=== PATIENT | female | born 1940 | race Caucasian/White ===

== ENCOUNTER 2017-08-23 18:17 | Inpatient (IN) | payer OTHER, BC ==
--- NOTE | 2017-08-23 18:24 | PDOC ---
History of Present Illness - General History Source: Patient Exam Limitations: No Limitations - History of Present Illness Initial Comments: 08/23/17 18:46 The patient is a 77 year old female with significant PMH presents of HLD on Crestor to the emergency department with generalized body aches and fatigue after having dinner with a friend who had a cough three days ago. The patient reports his friend is now hospitalized with influenza and told the patient to take Tamiflu but was unable to obtain Tamiflu at the pharmacy. The patient denies chest pain, shortness of breath, headache and dizziness. Denies fever, chills, nausea, vomit, diarrhea and constipation. Denies dysuria, frequency, urgency and hematuria. The patient has no other complaints today. Allergies: NKA Past surgical history: Brain tumor resection 10 years ago. Social history: No reported alcohol, drug, or cigarette use. PCP: Dr. Forrester <Snehal Nixon - Last Filed: 08/23/17 18:50> <Liseth Burris - Last Filed: 08/24/17 23:44> - General Chief Complaint: Cold Symptoms Stated Complaint: COUGH Time Seen by Provider: 08/23/17 18:20 Past History <Snehal Nixon - Last Filed: 08/23/17 18:50> <Liseth Burris - Last Filed: 08/24/17 23:44> - Past Medical History Allergies/Adverse Reactions: Allergies Allergy/AdvReac Type Severity Reaction Status Date / Time No Known Allergies Allergy Verified 08/23/17 18:18 Home Medications: Ambulatory Orders Aspirin [Adult Aspirin Regimen] 81 mg PO DAILY 08/24/17 Cholecalciferol (Vitamin D3) [Vitamin D-400] 400 unit PO DAILY 08/24/17 Diazepam [Valium] 2 mg PO TID 08/24/17 Lutein 6 mg PO DAILY 08/24/17 Magnesium 250 mg PO DAILY 08/24/17 Rosuvastatin Calcium [Crestor] 5 mg PO HS 08/24/17 Review of Systems - Review of Systems Able to Perform ROS?: Yes Comments:: 08/23/17 18:46 GENERAL/CONSTITUTIONAL: (+) Fatigue. (+) Generalized body aches. No fever or chills. HEAD, EYES, EARS, NOSE AND THROAT: No change in vision. No ear pain or discharge. No sore throat. CARDIOVASCULAR: No chest pain or shortness of breath. RESPIRATORY: No cough, wheezing, or hemoptysis. GASTROINTESTINAL: No nausea, vomiting, diarrhea or constipation. GENITOURINARY: No dysuria, frequency, or change in urination. MUSCULOSKELETAL: No joint or muscle swelling or pain. No neck or back pain. SKIN: No rash NEUROLOGIC: No headache, vertigo, loss of consciousness, or change in strength/ sensation. ENDOCRINE: No increased thirst. No abnormal weight change. HEMATOLOGIC/LYMPHATIC: No anemia, easy bleeding, or history of blood clots. ALLERGIC/IMMUNOLOGIC: No hives or skin allergy. <Snehal Nixon - Last Filed: 08/23/17 18:50> *Physical Exam - Vital Signs Last Vital Signs Temp Pulse Resp BP Pulse Ox 98.3 F 70 18 103/52 96 08/23/17 18:18 18 18:18 08/23/17 18:18 08/23/17 18:18 08/23/17 18:18 - Physical Exam Comments: 08/23/17 18:49 GENERAL: (+) Fatigued. (+) Arousable to voice and responsive to questions. Awake , alert, and fully oriented. HEAD: No signs of trauma EYES: PERRLA, EOMI, sclera anicteric, conjunctiva clear ENT: Auricles normal inspection, hearing grossly normal, nares patent, oropharynx clear without exudates. Moist mucosa NECK: Normal ROM, supple, no lymphadenopathy, JVD, or masses LUNGS: Breath sounds equal, clear to auscultation bilaterally. No wheezes, and no crackles HEART: Regular rate and rhythm, normal S1 and S2, no murmurs, rubs or gallops ABDOMEN: Soft, nontender, normoactive bowel sounds. No guarding, no rebound. No masses EXTREMITIES: Normal range of motion, no edema. No clubbing or cyanosis. No cords, erythema, or tenderness NEUROLOGICAL: Cranial nerves II through XII grossly intact. Normal speech, normal gait SKIN: Warm, Dry, normal turgor, no rashes or lesions noted. <Snehal Nixon - Last Filed: 08/23/17 18:50> ED Treatment Course - LABORATORY CBC & Chemistry Diagram: 08/24/17 07:20 08/24/17 07:20 <Liseth Burris - Last Filed: 08/24/17 23:44> Medical Decision Making - Medical Decision Making 08/23/17 18:34 MS Nunez is a 77 yo F with a history of HLD, prior history of Trans sphenoidal resection of brain tumor (per , benign) Pt presents to the ER today with due to generalized weakness Pt returned from [facility] on 08/12 PT had dinner with a friend on Tuesday That friend was admitted to the hospital today due to influenza The patient was noted by to be weak and sleepy The patient denies fevers or chills She denies headache, neck pain She denies chest pain, shortness of breath She denies nausea, vomiting, diarrhea She denies rash She denies dysuria On examination: PT is arousable to verbal stimuli but pt is somnolent Pt answers questions appropriately, A&O x 3 Pupils round and reactive RRR CTA No abd tenderness Flesh colored 1cm in diameter lesion behind right shoulder (non tender, unclear if this is old or new) Will do: Sepsis order set Unable to run flu testing Will IV hydrate Admit Pt signed out to oncoming attending physician pending labs, ct, ua 08/24/17 23:43 <Liseth Burris - Last Filed: 08/24/17 23:44> *DC/Admit/Observation/Transfer - Attestations Scribe Attestion: 08/23/17 18:50 Documentation prepared by Snehal Nixon, acting as caregivers non medical for Liseth Burris MD. <Snehal Nixon - Last Filed: 08/23/17 18:50> <Liseth Burris - Last Filed: 08/24/17 23:44> Diagnosis at time of Disposition: Altered mental status, Fever - Discharge Dispostion Condition at time of disposition: Guarded
[2017-08-23] MEDS ORDERED: SODIUM CHLORIDE 0.9% 1000 ML INFUS.BAG IV STA (18:33)
--- NOTE | 2017-08-23 19:19 | PDOC ---
*Physical Exam - Vital Signs Last Vital Signs Temp Pulse Resp BP Pulse Ox 98.3 F 70 18 103/52 96 08/23/17 18:18 08/23/17 18:18 08/23/17 18:18 08/23/17 18:18 08/23/17 18:18 - Physical Exam Comments: 08/23/17 19:17 Pt received on signout from Dr. Burris at 7pm. In short, pt presented somnolent and weak with otherwise negative ROS. Possible flu exposure. On exam, she's responsive to verbal stimuli and follows commands though slowly. Labs, UA, CTH pending Anticipate admission ED Treatment Course - LABORATORY CBC & Chemistry Diagram: 08/23/17 18:56 08/23/17 18:56 Medical Decision Making - Medical Decision Making 08/23/17 21:26 Pt still somnolent but arousable, no further change in mental status. Will admit to medicine for AMS as pt still not at baseline. CTH unrevealing, labs with hyponatremia. Received 1L IVF. No fever. 08/23/17 21:54 Temp repeated - pt is febrile 101.7. No source of fever - per , did NOT have preceding myalgias, headache, cough, flu-like symptoms, reports that she was just "more sleepy than usual and very weak". Is currently altered, thinks it 's March. Cannot rule out encephalitis/meningitis in this pt with fever and AMS. Will treat empirically for [employer] infection (vancomycin 1g, rocephin 2g, ampicillin, acyclovir) and proceed with LP. Will order another liter of IVF. 08/24/17 00:35 Spoke to Shagufta Light NP in ICU at [facility]. Pt hypotensive 90s/60s - still receiving IV fluids. Pt accepted to [facility] ICU, bed 8. Has received abx, will receive acyclovir now. LP was performed without complications, CSF was sent to [facility] lab via security. LUMBAR PUNCTURE PROCEDURE NOTE The patient was prepared and draped in the usual sterile fashion while in the lateral decubitus position. The skin was anesthesized with 1% lidocaine that was injected into the subcutaneous tissue. Spinal needle was advanced into the L4/L5 interspace. There was return of clear fluid. Pt tolerated procedure well. *DC/Admit/Observation/Transfer Diagnosis at time of Disposition: Altered mental status, Fever - Discharge Dispostion Condition at time of disposition: Guarded Admit: Yes - Referrals - Patient Instructions - Post Discharge Activity
[2017-08-23 19:24] LABS: BASO % 1.1 % (0-2.0); EOS % 0.5 % (0-4.5); HEMATOCRIT 40.3 % (32.4-45.2); HEMOGLOBIN 13.4 GM/dl (10.7-15.3); LYMPH % 28.5 % (8-40); MCH 29.3 pg (25.7-33.7); MCHC 33.4 g/dl (32.0-36.0); MEAN CELL VOLUME 87.8 fl (80-96); MEAN PLT VOLUME 11.7 fl (7.5-11.1); MONO % 15.5 % (3.8-10.2); NEUT % 54.4 % (42.8-82.8); PLATELET COUNT 176 K/MM3 (134-434); RBC 4.59 M/mm3 (3.60-5.2); RDW 12.5 % (11.6-15.6); WHITE BLOOD COUNT 4.6 K/mm3 (4.0-10.8)
[2017-08-23 19:25] LABS: ACTIVATED PTT 30.1 SECONDS (24.0-38.9)
[2017-08-23 19:28] LABS: ALBUMIN 3.7 g/dl (3.5-5.0); ALK PHOS 52 U/L (32-92); ANION GAP 6 (8-16); BLOOD UREA NITROGEN 12 mg/dl (7-18); CALCIUM 8.4 mg/dl (8.4-10.2); CHLORIDE 95 mmol/L (98-107); CO2 25 mmol/L (22-28); CREATININE 1.1 mg/dl (0.6-1.3); GLUCOSE,RANDOM 93 mg/dl (74-106); POTASSIUM 3.9 mmol/L (3.5-5.1); SGOT/AST 30 U/L (10-42); SGPT/ALT 17 U/L (10-40); SODIUM 126 mmol/L (136-145); TOT PROT 6.5 g/dl (6.4-8.3)
[2017-08-23 19:29] LABS: INR 1.3 (0.82-1.09); PROTHROMBIN TIME (PATIENT) 14.5 SEC (10.2-13.0)
[2017-08-23 19:38] LABS: BILIRUBIN,TOTAL 0.7 mg/dl (0.2-1.0)
[2017-08-23 19:58] LABS: URINE APPEARANCE Clear; URINE BILIRUBIN Negative (NEGATIVE); URINE GLUCOSE (UA) Negative (NEGATIVE); URINE KETONE Trace (NEGATIVE); URINE LEUK ESTERASE Negative (NEGATIVE); URINE NITRITE Negative (NEGATIVE); URINE PROTEIN Negative (NEGATIVE); URINE UROBILINOGEN 0.2 (0.2-1.0)
[2017-08-23 19:59] LABS: URINE BLOOD 2+ (NEGATIVE); URINE COLOR YELLOW
[2017-08-23 20:39] LABS: VENOUS PC02 45.2 mmHg (38-52); VENOUS PH 7.37 (7.32-7.42); VENOUS PO2 20.7 mmHg (28-48)
[2017-08-23 20:57] LABS: COCAINE, UR NEGATIVE ng/ml (CUTOFF=300); METHADONE, UR NEGATIVE ng/ml (CUTOFF=300); OPIATES, URI NEGATIVE ng/ml (CUTOFF=300); PHENCYCLIDINE,URINE NEGATIVE ng/ml (CUTOFF=25); URINE AMPHETAMINES NEGATIVE ng/ml (CUTOFF=500); URINE BARBITURATES NEGATIVE ng/ml (CUTOFF=200); URINE BENZODIAZEPINES NEGATIVE ng/ml (CUTOFF=200)
[2017-08-23] MEDS ORDERED: ACETAMINOPHEN 500 MG TABLET (FP) ONE (21:32)
[2017-08-23] MEDS ORDERED: ACETAMINOPHEN 500 MG TABLET (FP) PO ONE (21:35)
[2017-08-23] MEDS ORDERED: VANCOMYCIN 1,000 MG VIAL (RESTRICTED TO ID ONLY) ONE (21:39)
[2017-08-23] MEDS ORDERED: CEFTRIAXONE 2 GM in DEXTROSE 5%-WATER - 100 ML IVPB ONE (21:40)
[2017-08-23] MEDS ORDERED: AMPICILLIN - 2 GM in SODIUM CHLORIDE 100 ML IVPB ONE (21:41)
[2017-08-23] MEDS ORDERED: SODIUM CHLORIDE 1,000 ML IV STA (21:42)
[2017-08-23] MEDS ORDERED: OSELTAMIVIR PHOSPHATE 75 MG CAPSULE PO ONE (21:42)
[2017-08-23] MEDS ORDERED: ACYCLOVIR INJECTION 500 MG in DEXTROSE 5%-WATER - 100 ML IVPB ONE (21:43)
[2017-08-23] MEDS ORDERED: OSELTAMIVIR PHOSPHATE 75 MG CAPSULE ONE (21:54)
[2017-08-23] MEDS ORDERED: VANCOMYCIN 1,000 MG in DEXTROSE 5%-WATER - 250 ML IVPB SCH (22:00)
[2017-08-23] MEDS ORDERED: ONDANSETRON 4 MG/2 ML VIAL IVPUSH ONE (22:41)
[2017-08-23] MEDS ORDERED: FAMOTIDINE IV 20 MG/12 ML VIAL IVPB ONE (22:42)
[2017-08-23 22:52] LABS: URINE BACTERIA FEW /hpf (NEGATIVE); URINE WBC 0-2 (0-5)
[2017-08-23] MEDS ORDERED: ONDANSETRON 4 MG/2 ML VIAL ONE (23:28)
[2017-08-23] MEDS ORDERED: AMPICILLIN SODIUM 2 GM VIAL ONE (23:38)
[2017-08-24 01:11] LABS: GLUCOSE,CSF 45 mg/dL (50-80)
[2017-08-24 01:41] LABS: CSF APPEARANCE CLEAR; CSF COLOR COLORLESS
[2017-08-24 01:47] LABS: CSF APPEARANCE CLEAR; CSF COLOR COLORLESS; CSF WBC 0
[2017-08-24] MEDS ORDERED: SODIUM CHLORIDE 1,000 ML IV STA (02:28)
--- NOTE | 2017-08-24 03:14 | PN ---
Teaching Attending Note Name of Resident: Kel Bautista ATTENDING PHYSICIAN STATEMENT I saw and evaluated the patient. I reviewed the resident's note and discussed the case with the resident. I agree with the resident's findings and plan as documented. 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 who presents with fatigue and myalgias. She recently had dinner with a friend who has a cough. States this was 3 days, and friend was dx'd with the flu. Notes he coughed on her when she ate. She was told to take Jennifer-Flu, but was unable to obtain at pharmacy. No shortness of breath, headache, chest pain or pressure. No urinary urgency, dysuria or increased frequency. No fevers or chills. No N,V,D. OBJECTIVE: Physical: VS: Vital Signs Period Temp Pulse Resp BP Sys/Ulrich Pulse Ox Last 24 Hr 98.2 F-101.7 F 70-85 18-24 93-127/52-87 96-100 GEN: NAD, Resting in bed, AA0X3 HEENT: NCAT, PERRL, Throat without erythema or exudates CARD: RRR S1, S2 RESP: CTAB ABD: BSx4, NTD to palpation EXT: - C/C/E CBCD WBC 4.6 K/mm3 (4.0-10.8) 08/23/17 18:56 RBC 4.59 M/mm3 (3.60-5.2) 08/23/17 18:56 Hgb 13.4 GM/dl (10.7-15.3) 08/23/17 18:56 Hct 40.3 % (32.4-45.2) 08/23/17 18:56 MCV 87.8 fl (80-96) 08/23/17 18:56 MCHC 33.4 g/dl (32.0-36.0) 08/23/17 18:56 RDW 12.5 % (11.6-15.6) 08/23/17 18:56 Plt Count 176 K/MM3 (134-434) 08/23/17 18:56 MPV 11.7 fl (7.5-11.1) H 08/23/17 18:56 CMP Sodium 126 mmol/L (136-145) L 08/23/17 18:56 Potassium 3.9 mmol/L (3.5-5.1) 08/23/17 18:56 Chloride 95 mmol/L (98-107) L 08/23/17 18:56 Carbon Dioxide 25 mmol/L (22-28) 08/23/17 18:56 Anion Gap 6 (8-16) L 08/23/17 18:56 BUN 12 mg/dl (7-18) 08/23/17 18:56 Creatinine 1.1 mg/dl (0.6-1.3) 08/23/17 18:56 Creat Clearance w eGFR 48.42 (>60) 08/23/17 18:56 Random Glucose 93 mg/dl (74-106) 08/23/17 18:56 Calcium 8.4 mg/dl (8.4-10.2) 08/23/17 18:56 Total Bilirubin 0.7 mg/dl (0.2-1.0) 08/23/17 18:56 AST 30 U/L (10-42) 08/23/17 18:56 ALT 17 U/L (10-40) 08/23/17 18:56 Alkaline Phosphatase 52 U/L (32-92) 08/23/17 18:56 Total Protein 6.5 g/dl (6.4-8.3) 08/23/17 18:56 Albumin 3.7 g/dl (3.5-5.0) 08/23/17 18:56 CARDIAC ENZYMES Creatine Kinase 116 IU/L (26-192) 08/23/17 18:56 Troponin I 0.00 ng/ml (0.00-0.05) 08/23/17 18:56 CT HEAD0 Mild diffuse cerebral atropy with sulcal widening and ventricular dilitation CXR- No acute process Urine Test Results Urine Color Yellow 08/23/17 19:40 Urine Appearance Clear 08/23/17 19:40 Urine pH 7.0 (4.5-8) 08/23/17 19:40 Ur Specific Fritch 1.020 (1.005-1.025) 08/23/17 19:40 Urine Protein Negative (NEGATIVE) 08/23/17 19:40 Urine Glucose (UA) Negative (NEGATIVE) 08/23/17 19:40 Urine Ketones Trace (NEGATIVE) 08/23/17 19:40 Urine Blood 2+ (NEGATIVE) H 08/23/17 19:40 Urine Nitrite Negative (NEGATIVE) 08/23/17 19:40 Urine Bilirubin Negative (NEGATIVE) 08/23/17 19:40 Ur Leukocyte Esterase Negative (NEGATIVE) 08/23/17 19:40 Urine RBC 10-20 /hpf (0-3) 08/23/17 19:40 Urine WBC 0-2 (0-5) 08/23/17 19:40 Urine Bacteria Few /hpf (NEGATIVE) 08/23/17 19:40 ASSESSMENT AND PLAN: 77 F with Pmhx of HLD who presents with AMS, known flu exposure 1.) AMS - Resolved - Most likely due to infection - [place] Cx - Jennifer-Flu - CSF cx pending - Would hold off further abx 2.) Dvt Ppx - Heparin 5000 q8 Accepted to ICU CC Time:
--- NOTE | 2017-08-24 04:04 | CONSULT ---
Consult Consult Specialty:: Pulmonary/Critical Care Reason for Consultation:: hypotension - History of Present Illness Chief Complaint: AMS, fever History of Present Illness: Mrs. Nunez is a 77yo female with PMHx of HLD (on Crestor) who presented to the [facility] ED with generalized myalgias, fatigue, and weakness. Of note, about 4 days ago, patient had dinner with a friend that was diagnosed with the flu, and this friend is now hospitalized being treated for the flu. It was recommended that the patient start Tamiflu, but she was unable to obtain Tamiflu at the pharmacy. She also recently came back from [facility] ~10 days ago. Denies any symptoms while in [facility]. In the ED, patient denied CP, SOB, RANDOLPH, dizziness, fever/chills, n/v/d, constipation, or any urinary complaints. Initial vitals stable with SBP in 120s, but did then developed mild hypotension of 95/60 with normal HR 80s. Fluid resuscitated with 4L NS. Labs notable for Na 126, low TSH, normal electrolytes, normal BUN/SCr, UTox neg, normal lactate. While in the ED did develop fever and mild hypotension; sepsis was suspected. Due to AMS, CT Head done which was negative for acute process. LP done to r/o meningitis and was empirically covered with Vanc 1g, Rocephin 2g, Ampicillin 2g , and Acylovir. Due to mild hypotension and concern for potential further deterioration, decision made for transfer to [facility] ICU for further management. Upon arrival to ICU, vitals stable with BP 114/52, HR 72, O2sat 95% on RA, RR 16 , but did have temp 100.8. Hospitalist team admitted patient. Tylenol given for fever. Plan for munoz cultures, including urine antigens and repeat labs. Plan to cover empirically for flu. - History Source History Provided By: Patient, Transfer Record Limitations to Obtaining History: Other (fatigue) - Past Medical History Cardio/Vascular: Yes: Hyperlipdemia - Past Surgical History Additional Surgical History: Brain tumor resection - Alcohol/Substance Use Hx Alcohol Use: Yes (socially a/p patient, denies every day, wouldn't quantify) History of Substance Use: reports: None - Smoking History Smoking history: Former smoker Have you smoked in the past 12 months: No - Social History Usual Living Arrangement: With Spouse Home Medications - Allergies Allergies/Adverse Reactions: Allergies Allergy/AdvReac Type Severity Reaction Status Date / Time No Known Allergies Allergy Verified 08/23/17 18:18 - Home Medications Home Medications: Ambulatory Orders Aspirin [Adult Aspirin Regimen] 81 mg PO DAILY 08/24/17 Cholecalciferol (Vitamin D3) [Vitamin D-400] 400 unit PO DAILY 08/24/17 Diazepam [Valium] 2 mg PO TID 08/24/17 Lutein 6 mg PO DAILY 08/24/17 Magnesium 250 mg PO DAILY 08/24/17 Rosuvastatin Calcium [Crestor] 5 mg PO HS 08/24/17 Review of Systems - Review of Systems Constitutional: reports: Chills, Fever, Lethargy, Loss of Appetite, Weakness Eyes: denies: Recent Change in Vision HENT: denies: Difficult Swallowing Neck: denies: Pain on Movement Cardiovascular: denies: Chest Pain Respiratory: denies: Cough, SOB Gastrointestinal: denies: Abdominal Pain, Diarrhea, Nausea, Vomiting Genitourinary: denies: Dysuria, Frequency, Urgency Integumentary: denies: Rash, Wound Neurological: denies: Syncope Endocrine: denies: Unexplained Weight Gain, Unexplained Weight Loss Physical Exam Vital Signs: Vital Signs Temperature 98.2 F 08/24/17 00:35 Pulse Rate 80 08/24/17 02:37 Respiratory Rate 22 08/24/17 02:37 Blood Pressure 93/75 08/24/17 02:37 O2 Sat by Pulse Oximetry (%) 97 08/24/17 00:35 Constitutional: Yes: No Distress, Calm Eyes: Yes: Conjunctiva Clear, PERRL HENT: Yes: Atraumatic, Normocephalic Neck: Yes: Supple, Trachea Midline Cardiovascular: Yes: Regular Rate and Rhythm Respiratory: Yes: CTA Bilaterally Gastrointestinal: Yes: Normal Bowel Sounds, Soft, Other (nontender, nondistended ) Extremities: Yes: Cool Edema: No Peripheral Pulses WNL: Yes Integumentary: Yes: WNL Neurological: Yes: Alert, Oriented, Lethargy ...Motor Strength: WNL Labs: CBC, BMP 08/23/17 18:56 08/23/17 18:56 Hepatic Panel Total Bilirubin 0.7 mg/dl (0.2-1.0) 08/23/17 18:56 AST 30 U/L (10-42) 08/23/17 18:56 ALT 17 U/L (10-40) 08/23/17 18:56 Alkaline Phosphatase 52 U/L (32-92) 08/23/17 18:56 Albumin 3.7 g/dl (3.5-5.0) 08/23/17 18:56 Lactate 1.3 TSH 0.04 Utox neg UA w few bacteria, otherwise negative PTT 30, INR 1.3 CSF cx pending, glucose 45, protein 38 Imaging - Results Chest X-ray: Image Reviewed (CXR 08/23: The heart size is within normal limits. The lung gonzalez are free of pulmonary infiltrates or pleural effusions. There is tortuosity and calcification of the thoracic aorta and degenerative changes of the thoracic spine. IMPRESSION: No acute disease.) Cat Scan: Report Reviewed (Head CT 08/23: The study is limited due to the patient's ability to cooperate. There is no evidence of acute intracranial hemorrhage, mass lesions or infarctions. There is a mild degree of diffuse cerebral atrophy with sulcal widening and ventricular dilatation. IMPRESSION : Limited study with no evidence of acute intracranial pathology) Assessment/Plan A/P: 77yo female with pmhx HL, p/w myalgias, fatigue, weakness, now with +fever/ chills, most concerning for viral illness, specifically Influenza due to recent exposure, though cannot r/o CAP (unlikely - no O2 requirement, CXR unremarkable) , UTI (unlikely - UA grossly neg for exception few bacteria), viral vs bacterial meningitis (CSF cx pending, glucose low, protein normal), or travel associated illness endemic to [facility] (Zika, Dengue, Chikungunya, Hep A, Typhoid, Rabies) -Munoz culture, including urine antigens -Empirically treat for influenza with Tamiflu -IVF resuscitation as needed -Low suspicion for meningitis but glucose slightly low on CSF so cannot rule out bacterial meningitis, f/u CSF cx and low threshold to resume empiric meningitis tx -Very low s/f CAP - would hold off on empiric coverage for now -In regards of risk a/w travelling to [facility], according to CDC very low risk for infectious etiology. Patient also reports staying on hotel grounds, no remote hiking or caving and did not drink non-bottled water or eat any suspicious food she is aware of. Disease states endemic to [facility] include the following though suspicion very low: --Zika, Dengue, Chikungunya (mosquito borne): has fever and myalgias, no rash, RANDOLPH, or joint pain, denies mosquito bites while on vacation, low exposure risk --Hep A (food/water borne): has fever/fatigue, but no GI symptoms and ate hotel food only, low exposure risk --Typhoid (food/water borne): has fever and weakness, no abdominal pain and reports eating food at hotel only, low exposure risk --Rabies (bat borne): can present as non-specific prodrome of fever & vague symptoms that deteriorates to an acute, progressive encephalitis. Patient stayed on hotel grounds, no hiking or caving, or bat exposure, low exposure risk -f/u Na levels -Work-up Hyponatremia: send urine Osm, serum osm, urine lytes -Trend UOP, SCr -TSH may be low in setting of acute illness, though may consider checking free T4 -DVT ppx -No indication for GI ppx Critical Care Time: 35 minutes
[2017-08-24 04:05] VITALS: BMI 25.9
--- NOTE | 2017-08-24 04:33 | HP ---
CHIEF COMPLAINT: AMS, Fever PCP: Dr. Mali Parks HISTORY OF PRESENT ILLNESS: The patient is a 77 yo f w/ PMH HLD and Pituitary adenoma (s/p resection) who was brought into [place] ED by her for altered mental status and fatigue. In the ED at [facility], she was febrile, altered and hypotensive, prompting transfer to [facility] ICU. Upon interview in the ICU, the patient was alert and able to provider her own history. Patient states she woke up Tuesday morning and was too fatigued to get out of bed. She recently had dinner with a friend who had the flu. The patient' s friend was recently hospitalized for flu. Patient currently complaining of generalized weakness, malaise and headache. Patient recently returned from a trip to [facility] on 08/12 but denies any insect or animal bites. Patient denies CP, SOB, abdominal pain, nausea, vomiting, diarrhea, dysuria, urgency or frequency. Patient does not recall having a fever at home. ER course was notable for: (1) fever to 101.7 (2) 2L NS (3) CT Head negative (4) LP r/o meningitis (5) Vanco, ceftriaxone, ampicillin, acyclovir Recent Travel: [facility], returned 08/12 PAST MEDICAL HISTORY: see HPI PAST SURGICAL HISTORY: pituitary adenoma removal ~10 years ago Social History: Smoking: denies Alcohol: denies Drugs: denies Family History: non-contributory Allergies No Known Allergies Allergy (Verified 08/23/17 18:18) HOME MEDICATIONS: Home Medications Medication Instructions Recorded Aspirin [Adult Aspirin Regimen] 81 mg PO DAILY 08/24/17 Cholecalciferol (Vitamin D3) 400 unit PO DAILY 08/24/17 [Vitamin D-400] Diazepam [Valium] 2 mg PO TID 08/24/17 Lutein 6 mg PO DAILY 08/24/17 Magnesium 250 mg PO DAILY 08/24/17 Rosuvastatin Calcium [Crestor] 5 mg PO HS 08/24/17 REVIEW OF SYSTEMS CONSTITUTIONAL: Absent: fever, diaphoresis, weight change HEENT: Absent: rhinorrhea, nasal congestion, throat pain, throat swelling, difficulty swallowing, mouth swelling, ear pain, eye pain, visual changes CARDIOVASCULAR: Absent: chest pain, syncope, palpitations, irregular heart rate, lightheadedness , peripheral edema RESPIRATORY: Absent: cough, shortness of breath, dyspnea with exertion, orthopnea, wheezing, stridor, hemoptysis GASTROINTESTINAL: Absent: abdominal pain, abdominal distension, nausea, vomiting, diarrhea, constipation, melena, hematochezia GENITOURINARY: Absent: dysuria, frequency, urgency, hesitancy, hematuria, flank pain, genital pain MUSCULOSKELETAL: Absent: myalgia, arthralgia, joint swelling, back pain, neck pain SKIN: Absent: rash, itching, pallor HEMATOLOGIC/IMMUNOLOGIC: Absent: easy bleeding, easy bruising, lymphadenopathy, frequent infections ENDOCRINE: Absent: unexplained weight gain, unexplained weight loss, heat intolerance, cold intolerance NEUROLOGIC: Absent: headache, focal weakness or paresthesias, dizziness, unsteady gait, seizure, mental status changes, bladder or bowel incontinence PSYCHIATRIC: Absent: anxiety, depression, suicidal or homicidal ideation, hallucinations. PHYSICAL EXAMINATION Vital Signs - 24 hr 08/23/17 08/23/17 08/23/17 18:18 20:15 21:30 Temperature 98.3 F 101.7 F H Pulse Rate 70 80 Pulse Rate [ 84 Left] Respiratory 18 20 Rate Blood Pressure 103/52 Blood Pressure 111/87 [Right] O2 Sat by Pulse 96 100 Oximetry (%) 08/23/17 08/23/17 08/24/17 22:06 23:16 00:35 Temperature 98.8 F 98.2 F Pulse Rate Pulse Rate [ 80 85 83 Left] Respiratory 24 20 22 Rate Blood Pressure Blood Pressure 127/74 103/71 93/56 [Right] O2 Sat by Pulse 96 99 97 Oximetry (%) 08/24/17 08/24/17 08/24/17 01:32 02:37 03:49 Temperature 100.9 F H Pulse Rate 77 Pulse Rate [ 78 80 Left] Respiratory 24 22 19 Rate Blood Pressure 110/85 Blood Pressure 100/53 93/75 [Right] O2 Sat by Pulse 97 Oximetry (%) GENERAL: Awake, alert, and fully oriented, in moderate distress. Patient appears uncomfortable and moans occasionally. HEAD: Normal with no signs of trauma. NECK: Normal range of motion, supple without lymphadenopathy, JVD, or masses. No neck stiffness; patient modes neck spontaneously. LUNGS: Breath sounds equal, clear to auscultation bilaterally. No wheezes, and no crackles. No accessory muscle use. HEART: Regular rate and rhythm, normal S1 and S2 without murmur, rub or gallop. ABDOMEN: Soft, nontender, not distended, normoactive bowel sounds, no guarding, no rebound, no masses. LOWER EXTREMITIES: 2+ pulses, warm, well-perfused. No calf tenderness. No peripheral edema. NEUROLOGICAL: Cranial nerves II-X intact. Normal speech. PSYCHIATRIC: Cooperative. Good eye contact. Appropriate mood and affect. SKIN: Warm, dry, normal turgor, no rashes or lesions noted, normal capillary refill. Laboratory Results - last 24 hr 08/23/17 08/23/17 08/23/17 07:40 18:56 18:56 WBC 4.6 RBC 4.59 Hgb 13.4 Hct 40.3 MCV 87.8 MCH 29.3 MCHC 33.4 RDW 12.5 Plt Count 176 MPV 11.7 H Neutrophils % 54.4 Lymphocytes % 28.5 Monocytes % 15.5 H Eosinophils % 0.5 Basophils % 1.1 PT with INR 14.5 H INR 1.30 H PTT (Actin FS) 30.1 VBG pH POC VBG pCO2 POC VBG pO2 Mixed VBG HCO3 Sodium Potassium Chloride Carbon Dioxide Anion Gap BUN Creatinine Creat Clearance w eGFR Random Glucose Lactic Acid Calcium Total Bilirubin AST ALT Alkaline Phosphatase Creatine Kinase Troponin I Total Protein Albumin TSH Urine Color Urine Appearance Urine pH Ur Specific [place] Urine Protein Urine Glucose (UA) Urine Ketones Urine Blood Urine Nitrite Urine Bilirubin Urine Urobilinogen Ur Leukocyte Esterase Urine RBC Urine WBC Urine Bacteria CSF Appearance CSF Color CSF WBC CSF RBC CSF Neutrophils CSF Lymphocytes CSF Eosinophils CSF Basophils CSF Macrophages CSF Plasma Cells CSF Diff Comment CSF Comment CSF Glucose CSF Total Protein Opiates Screen Methadone Screen Barbiturate Screen Phencyclidine Screen Ur Amphetamines Screen MDMA (Ecstasy) Screen Benzodiazepines Screen Cocaine Screen U Marijuana (THC) Screen Blood Type O POSITIVE Antibody Screen 08/23/17 08/23/17 08/23/17 18:56 18:56 18:56 WBC RBC Hgb Hct MCV MCH MCHC RDW Plt Count MPV Neutrophils % Lymphocytes % Monocytes % Eosinophils % Basophils % PT with INR INR PTT (Actin FS) VBG pH 7.37 POC VBG pCO2 45.2 POC VBG pO2 20.7 L Mixed VBG HCO3 25.5 H Sodium 126 L Potassium 3.9 Chloride 95 L Carbon Dioxide 25 Anion Gap 6 L BUN 12 Creatinine 1.1 Creat Clearance w eGFR 48.42 Random Glucose 93 Lactic Acid 1.3 Calcium 8.4 Total Bilirubin 0.7 AST 30 ALT 17 Alkaline Phosphatase 52 Creatine Kinase 116 Troponin I 0.00 Total Protein 6.5 Albumin 3.7 TSH 0.04 L Urine Color Urine Appearance Urine pH Ur Specific [place] Urine Protein Urine Glucose (UA) Urine Ketones Urine Blood Urine Nitrite Urine Bilirubin Urine Urobilinogen Ur Leukocyte Esterase Urine RBC Urine WBC Urine Bacteria CSF Appearance CSF Color CSF WBC CSF RBC CSF Neutrophils CSF Lymphocytes CSF Eosinophils CSF Basophils CSF Macrophages CSF Plasma Cells CSF Diff Comment CSF Comment CSF Glucose CSF Total Protein Opiates Screen Methadone Screen Barbiturate Screen Phencyclidine Screen Ur Amphetamines Screen MDMA (Ecstasy) Screen Benzodiazepines Screen Cocaine Screen U Marijuana (THC) Screen Blood Type Antibody Screen 08/23/17 08/23/17 08/23/17 18:56 19:40 19:40 WBC RBC Hgb Hct MCV MCH MCHC RDW Plt Count MPV Neutrophils % Lymphocytes % Monocytes % Eosinophils % Basophils % PT with INR INR PTT (Actin FS) VBG pH POC VBG pCO2 POC VBG pO2 Mixed VBG HCO3 Sodium Potassium Chloride Carbon Dioxide Anion Gap BUN Creatinine Creat Clearance w eGFR Random Glucose Lactic Acid Calcium Total Bilirubin AST ALT Alkaline Phosphatase Creatine Kinase Troponin I Total Protein Albumin TSH Urine Color Yellow Urine Appearance Clear Urine pH 7.0 Ur Specific [place] 1.020 Urine Protein Negative Urine Glucose (UA) Negative Urine Ketones Trace Urine Blood 2+ H Urine Nitrite Negative Urine Bilirubin Negative Urine Urobilinogen 0.2 Ur Leukocyte Esterase Negative Urine RBC 10-20 Urine WBC 0-2 Urine Bacteria Few CSF Appearance CSF Color CSF WBC CSF RBC CSF Neutrophils CSF Lymphocytes CSF Eosinophils CSF Basophils CSF Macrophages CSF Plasma Cells CSF Diff Comment CSF Comment CSF Glucose CSF Total Protein Opiates Screen Negative Methadone Screen Negative Barbiturate Screen Negative Phencyclidine Screen Negative Ur Amphetamines Screen Negative MDMA (Ecstasy) Screen Negative Benzodiazepines Screen Negative Cocaine Screen Negative U Marijuana (THC) Screen Negative Blood Type O POSITIVE Antibody Screen Negative 08/23/17 08/23/17 23:30 23:30 WBC RBC Hgb Hct MCV MCH MCHC RDW Plt Count MPV Neutrophils % Lymphocytes % Monocytes % Eosinophils % Basophils % PT with INR INR PTT (Actin FS) VBG pH POC VBG pCO2 POC VBG pO2 Mixed VBG HCO3 Sodium Potassium Chloride Carbon Dioxide Anion Gap BUN Creatinine Creat Clearance w eGFR Random Glucose Lactic Acid Calcium Total Bilirubin AST ALT Alkaline Phosphatase Creatine Kinase Troponin I Total Protein Albumin TSH Urine Color Urine Appearance Urine pH Ur Specific [place] Urine Protein Urine Glucose (UA) Urine Ketones Urine Blood Urine Nitrite Urine Bilirubin Urine Urobilinogen Ur Leukocyte Esterase Urine RBC Urine WBC Urine Bacteria CSF Appearance Clear Clear CSF Color Colorless Colorless CSF WBC 0 0 CSF RBC 0 61.00 CSF Neutrophils No Result Required. No Result Required. CSF Lymphocytes No Result Required. CSF Eosinophils No Result Required. CSF Basophils No Result Required. CSF Macrophages No Result Required. CSF Plasma Cells No Result Required. CSF Diff Comment No Result Required. CSF Comment CSF Glucose 45 L CSF Total Protein 38 Opiates Screen Methadone Screen Barbiturate Screen Phencyclidine Screen Ur Amphetamines Screen MDMA (Ecstasy) Screen Benzodiazepines Screen Cocaine Screen U Marijuana (THC) Screen Blood Type Antibody Screen ASSESSMENT/PLAN: The patient is a 77 yo f w/ PMH pituitary adenoma and HLD admitted to the ICU for AMS and fever. #AMS and fever likely 2/2 influenza -AMS has since resolved -Ucx, Bcx, CSFcx pending -CSF analysis shows no WBCs -will treat empirically w/ julito-Flu 30mg BID -holding ABX for now unless Cx positive or patient deteriorates -urine for PNA -s/p multiple abx in ED #FEN -no fluids indicated -monitor lytes -regular diet #prophylaxis -Hep Sq 5Ku TID #Dispo -admit to ICU Visit type - Emergency Visit Emergency Visit: Yes ED Registration Date: 08/24/17 Care time: The patient presented to the Emergency Department on the above date and was hospitalized for further evaluation of their emergent condition. - New Patient This patient is new to me today: Yes Date on this admission: 08/25/17 - Critical Care Critical Care patient: Yes Total Critical Care Time (in minutes): 35 Critical Care Statement: The care of this patient involved high complexity decision making to prevent further life threatening deterioration of the patient 's condition and/or to evaluate & treat vital organ system(s) failure or risk of failure. Hospitalist Screening - Colonoscopy Questionnaire Colonoscopy Questionnaire: Colonoscopy Questionnaire - Patient: 50 - 75 years old and never had a screening colonoscopy: Unknown History of colon or rectal polyps, or CA: Unknown History of IBD, Crohn's disease or UC: Unknown History of abdominal radiation therapy as a child: Unknown - Relative: 1 with colon or rectal CA, or polyps at age 60 or younger: Unknown Colon or rectal CA diagnosed at age 45 or younger: Unknown Multiple relatives with colon or rectal CA: Unknown - Outcome: Screening Result: Negative Screen
[2017-08-24] MEDS: HEPARIN NA (PORCINE) 5,000 UNITS/ML 1ML VIAL SQ SCH ×3 (05:46→21:33)
[2017-08-24] MEDS: ACETAMINOPHEN 325 MG TABLET (FP) PO PRN ×2 (06:07→15:26)
[2017-08-24 08:17] LABS: BASO % 0.6 % (0-2.0); EOS % 0.1 % (0-4.5); HEMATOCRIT 32.9 % (32.4-45.2); HEMOGLOBIN 10.8 GM/dL (10.7-15.3); LYMPH % 35.8 % (8-40); MCH 29.4 pg (25.7-33.7); MEAN CELL VOLUME 89.2 fl (80-96); MEAN PLT VOLUME 10.9 fl (7.5-11.1); MONO % 16.4 % (3.8-10.2); NEUT % 47.1 % (42.8-82.8); PLATELET COUNT 125 K/MM3 (134-434); RBC 3.69 M/mm3 (3.60-5.2); RDW 13.2 % (11.6-15.6); WHITE BLOOD COUNT 3.3 K/mm3 (4.0-10.0)
[2017-08-24] MEDS ORDERED: ACETAMINOPHEN/CAFFEINE/BUTALBITAL 1 TAB PO ONE (08:36)
[2017-08-24 08:46] LABS: LIPASE 217 U/L (73-393)
[2017-08-24 08:53] LABS: ALBUMIN 2.7 g/dl (3.4-5.0); ALK PHOS 49 U/L (45-117); ANION GAP 11 (8-16); BILIRUBIN,TOTAL 0.3 mg/dL (0.2-1.0); BLOOD UREA NITROGEN 10 mg/dL (7-18); CHLORIDE 103 mmol/L (98-107); CO2 18 mmol/L (21-32); CREATININE 0.6 mg/dL (0.55-1.02); GLUCOSE,RANDOM 60 mg/dL (74-106); POTASSIUM 3.8 mmol/L (3.5-5.1); SGOT/AST 26 U/L (15-37); SGPT/ALT 18 U/L (12-78); SODIUM 132 mmol/L (136-145)
[2017-08-24 09:47] LABS: MAGNESIUM 1.7 mg/dL (1.8-2.4); PHOSPHOROUS 2.5 mg/dL (2.5-4.9)
[2017-08-24] MEDS ORDERED: LUTEIN 6 MG PO SCH (10:00)
[2017-08-24] MEDS ORDERED: OSELTAMIVIR PHOSPHATE 30 MG CAPSULE PO SCH (10:00)
[2017-08-24] MEDS ORDERED: ASPIRIN COATED 81 MG TABLET.EC PO SCH (10:00)
[2017-08-24] MEDS ORDERED: MUPIROCIN 2% TOPICAL OINTMENT FOR DECOLONIZATION NS SCH (10:00)
[2017-08-24] MEDS ORDERED: PT OWN MED DRAWER 7, Y5N ONE ×3 (10:24→23:33)
[2017-08-24 10:33] LABS: CALCIUM 6.5 mg/dL (8.5-10.1)
[2017-08-24] MEDS ORDERED: SODIUM CHLORIDE 1,000 ML IV SCH (11:30)
[2017-08-24] MEDS ORDERED: MAGNESIUM 1GM/D5W 100ML - 100 ML IVPB IVPB ONE (11:49)
--- NOTE | 2017-08-24 11:50 | PN ---
Physical Exam: Patient was transferred from [facility] ED to ICU due to fever, hypotension, AMS SUBJECTIVE: Patient seen and examined at bed side this morning. Complaining of severe left sided headache, 8/10, annoying, non radiating. no changes in vision. Has remote h/o Migraines. Denies numbness, tingling, localized weakness , chest pain, sob, cough, palpitation, abdominal pain, nausea or vomiting. Pts at bedside who mentions her mental status improved and back at baseline.. 2 days ago she was confused and had AMS. This morning had a temp of 102.1 F which resolved with one dose of PO Tylenol. Was given Fiorocet for headache and it resolved. OBJECTIVE: Vital Signs Period Temp Pulse Resp BP Sys/Ulrich Pulse Ox Last 24 Hr 98.2 F-101.8 F 70-85 18-24 93-127/52-87 96-100 GENERAL: The patient is awake, alert, and fully oriented, in no acute distress. HEAD: Normal with no signs of trauma. EYES: EOM intact, no pallor or icterus. ENT: Ears normal, moist mucous membranes. NECK: Supple, No neck stiffness. LUNGS: B/L Breath sounds equal, clear to auscultation bilaterally, no wheezes, no crackles, no accessory muscle use. HEART: Regular rate and rhythm, S1, S2 without murmur. ABDOMEN: Soft, nontender, nondistended, normoactive bowel sounds, no guarding, no rebound, no hepatosplenomegaly, no masses. EXTREMITIES: 2+ pulses, warm, well-perfused, no edema. NEUROLOGICAL: No facial droop, no neurological deficits, Cranial nerves II through XII grossly intact. Normal speech, gait not observed. PSYCH: Normal mood, normal affect. SKIN: Warm, dry, normal turgor, no rashes or lesions noted Laboratory Results - last 24 hr 08/23/17 08/23/17 08/23/17 07:40 18:56 18:56 WBC 4.6 RBC 4.59 Hgb 13.4 Hct 40.3 MCV 87.8 MCH 29.3 MCHC 33.4 RDW 12.5 Plt Count 176 MPV 11.7 H Neutrophils % 54.4 Lymphocytes % 28.5 Monocytes % 15.5 H Eosinophils % 0.5 Basophils % 1.1 PT with INR 14.5 H INR 1.30 H PTT (Actin FS) 30.1 VBG pH POC VBG pCO2 POC VBG pO2 Mixed VBG HCO3 Sodium Potassium Chloride Carbon Dioxide Anion Gap BUN Creatinine Creat Clearance w eGFR Random Glucose Serum Osmolality Lactic Acid Calcium Phosphorus Magnesium Total Bilirubin AST ALT Alkaline Phosphatase Creatine Kinase Troponin I Total Protein Albumin Lipase TSH Free T4 Urine Color Urine Appearance Urine pH Ur Specific [place] Urine Protein Urine Glucose (UA) Urine Ketones Urine Blood Urine Nitrite Urine Bilirubin Urine Urobilinogen Ur Leukocyte Esterase Urine RBC Urine WBC Urine Bacteria Urine Osmolality CSF Appearance CSF Color CSF WBC CSF RBC CSF Neutrophils CSF Lymphocytes CSF Eosinophils CSF Basophils CSF Macrophages CSF Plasma Cells CSF Diff Comment CSF Comment CSF Glucose CSF Total Protein Opiates Screen Methadone Screen Barbiturate Screen Phencyclidine Screen Ur Amphetamines Screen MDMA (Ecstasy) Screen Benzodiazepines Screen Cocaine Screen U Marijuana (THC) Screen Blood Type O POSITIVE Antibody Screen 08/23/17 08/23/17 08/23/17 18:56 18:56 18:56 WBC RBC Hgb Hct MCV MCH MCHC RDW Plt Count MPV Neutrophils % Lymphocytes % Monocytes % Eosinophils % Basophils % PT with INR INR PTT (Actin FS) VBG pH 7.37 POC VBG pCO2 45.2 POC VBG pO2 20.7 L Mixed VBG HCO3 25.5 H Sodium 126 L Potassium 3.9 Chloride 95 L Carbon Dioxide 25 Anion Gap 6 L BUN 12 Creatinine 1.1 Creat Clearance w eGFR 48.42 Random Glucose 93 Serum Osmolality Lactic Acid 1.3 Calcium 8.4 Phosphorus Magnesium Total Bilirubin 0.7 AST 30 ALT 17 Alkaline Phosphatase 52 Creatine Kinase 116 Troponin I 0.00 Total Protein 6.5 Albumin 3.7 Lipase 217 TSH 0.04 L Free T4 Urine Color Urine Appearance Urine pH Ur Specific [place] Urine Protein Urine Glucose (UA) Urine Ketones Urine Blood Urine Nitrite Urine Bilirubin Urine Urobilinogen Ur Leukocyte Esterase Urine RBC Urine WBC Urine Bacteria Urine Osmolality CSF Appearance CSF Color CSF WBC CSF RBC CSF Neutrophils CSF Lymphocytes CSF Eosinophils CSF Basophils CSF Macrophages CSF Plasma Cells CSF Diff Comment CSF Comment CSF Glucose CSF Total Protein Opiates Screen Methadone Screen Barbiturate Screen Phencyclidine Screen Ur Amphetamines Screen MDMA (Ecstasy) Screen Benzodiazepines Screen Cocaine Screen U Marijuana (THC) Screen Blood Type Antibody Screen 08/23/17 08/23/17 08/23/17 18:56 19:40 19:40 WBC RBC Hgb Hct MCV MCH MCHC RDW Plt Count MPV Neutrophils % Lymphocytes % Monocytes % Eosinophils % Basophils % PT with INR INR PTT (Actin FS) VBG pH POC VBG pCO2 POC VBG pO2 Mixed VBG HCO3 Sodium Potassium Chloride Carbon Dioxide Anion Gap BUN Creatinine Creat Clearance w eGFR Random Glucose Serum Osmolality Lactic Acid Calcium Phosphorus Magnesium Total Bilirubin AST ALT Alkaline Phosphatase Creatine Kinase Troponin I Total Protein Albumin Lipase TSH Free T4 Urine Color Yellow Urine Appearance Clear Urine pH 7.0 Ur Specific [place] 1.020 Urine Protein Negative Urine Glucose (UA) Negative Urine Ketones Trace Urine Blood 2+ H Urine Nitrite Negative Urine Bilirubin Negative Urine Urobilinogen 0.2 Ur Leukocyte Esterase Negative Urine RBC 10-20 Urine WBC 0-2 Urine Bacteria Few Urine Osmolality CSF Appearance CSF Color CSF WBC CSF RBC CSF Neutrophils CSF Lymphocytes CSF Eosinophils CSF Basophils CSF Macrophages CSF Plasma Cells CSF Diff Comment CSF Comment CSF Glucose CSF Total Protein Opiates Screen Negative Methadone Screen Negative Barbiturate Screen Negative Phencyclidine Screen Negative Ur Amphetamines Screen Negative MDMA (Ecstasy) Screen Negative Benzodiazepines Screen Negative Cocaine Screen Negative U Marijuana (THC) Screen Negative Blood Type O POSITIVE Antibody Screen Negative 08/23/17 08/23/17 08/24/17 23:30 23:30 07:20 WBC 3.3 L RBC 3.69 Hgb 10.8 Hct 32.9 MCV 89.2 MCH 29.4 MCHC 33.0 RDW 13.2 Plt Count 125 L MPV 10.9 Neutrophils % 47.1 Lymphocytes % 35.8 Monocytes % 16.4 H Eosinophils % 0.1 Basophils % 0.6 PT with INR INR PTT (Actin FS) VBG pH POC VBG pCO2 POC VBG pO2 Mixed VBG HCO3 Sodium Potassium Chloride Carbon Dioxide Anion Gap BUN Creatinine Creat Clearance w eGFR Random Glucose Serum Osmolality Lactic Acid Calcium Phosphorus Magnesium Total Bilirubin AST ALT Alkaline Phosphatase Creatine Kinase Troponin I Total Protein Albumin Lipase TSH Free T4 Urine Color Urine Appearance Urine pH Ur Specific [place] Urine Protein Urine Glucose (UA) Urine Ketones Urine Blood Urine Nitrite Urine Bilirubin Urine Urobilinogen Ur Leukocyte Esterase Urine RBC Urine WBC Urine Bacteria Urine Osmolality CSF Appearance Clear Clear CSF Color Colorless Colorless CSF WBC 0 0 CSF RBC 0 61.00 CSF Neutrophils No Result Required. No Result Required. CSF Lymphocytes No Result Required. CSF Eosinophils No Result Required. CSF Basophils No Result Required. CSF Macrophages No Result Required. CSF Plasma Cells No Result Required. CSF Diff Comment No Result Required. CSF Comment CSF Glucose 45 L CSF Total Protein 38 Opiates Screen Methadone Screen Barbiturate Screen Phencyclidine Screen Ur Amphetamines Screen MDMA (Ecstasy) Screen Benzodiazepines Screen Cocaine Screen U Marijuana (THC) Screen Blood Type Antibody Screen 08/24/17 08/24/17 08/24/17 07:20 07:20 07:20 WBC RBC Hgb Hct MCV MCH MCHC RDW Plt Count MPV Neutrophils % Lymphocytes % Monocytes % Eosinophils % Basophils % PT with INR INR PTT (Actin FS) VBG pH POC VBG pCO2 POC VBG pO2 Mixed VBG HCO3 Sodium 132 L Cancelled Potassium 3.8 Cancelled Chloride 103 Cancelled Carbon Dioxide 18 L Cancelled Anion Gap 11 Cancelled BUN 10 Cancelled Creatinine 0.6 Cancelled Creat Clearance w eGFR > 60 Random Glucose 60 L Cancelled Serum Osmolality 259 L Lactic Acid Calcium 6.5 L* Cancelled Phosphorus 2.5 Magnesium 1.7 L Total Bilirubin 0.3 AST 26 ALT 18 Alkaline Phosphatase 49 Creatine Kinase Troponin I Total Protein 5.0 L Albumin 2.7 L Lipase TSH Free T4 1.30 Cancelled Urine Color Urine Appearance Urine pH Ur Specific [place] Urine Protein Urine Glucose (UA) Urine Ketones Urine Blood Urine Nitrite Urine Bilirubin Urine Urobilinogen Ur Leukocyte Esterase Urine RBC Urine WBC Urine Bacteria Urine Osmolality Cancelled CSF Appearance CSF Color CSF WBC CSF RBC CSF Neutrophils CSF Lymphocytes CSF Eosinophils CSF Basophils CSF Macrophages CSF Plasma Cells CSF Diff Comment CSF Comment CSF Glucose CSF Total Protein Opiates Screen Methadone Screen Barbiturate Screen Phencyclidine Screen Ur Amphetamines Screen MDMA (Ecstasy) Screen Benzodiazepines Screen Cocaine Screen U Marijuana (THC) Screen Blood Type Antibody Screen 08/24/17 08/24/17 07:20 07:20 WBC RBC Hgb Hct MCV MCH MCHC RDW Plt Count MPV Neutrophils % Lymphocytes % Monocytes % Eosinophils % Basophils % PT with INR INR PTT (Actin FS) VBG pH POC VBG pCO2 POC VBG pO2 Mixed VBG HCO3 Sodium Potassium Chloride Carbon Dioxide Anion Gap BUN Creatinine Creat Clearance w eGFR Random Glucose Serum Osmolality Lactic Acid 1.2 Calcium Phosphorus Magnesium Total Bilirubin AST ALT Alkaline Phosphatase Creatine Kinase Troponin I Total Protein Albumin Lipase 235 TSH Free T4 Urine Color Urine Appearance Urine pH Ur Specific [place] Urine Protein Urine Glucose (UA) Urine Ketones Urine Blood Urine Nitrite Urine Bilirubin Urine Urobilinogen Ur Leukocyte Esterase Urine RBC Urine WBC Urine Bacteria Urine Osmolality CSF Appearance CSF Color CSF WBC CSF RBC CSF Neutrophils CSF Lymphocytes CSF Eosinophils CSF Basophils CSF Macrophages CSF Plasma Cells CSF Diff Comment CSF Comment CSF Glucose CSF Total Protein Opiates Screen Methadone Screen Barbiturate Screen Phencyclidine Screen Ur Amphetamines Screen MDMA (Ecstasy) Screen Benzodiazepines Screen Cocaine Screen U Marijuana (THC) Screen Blood Type Antibody Screen Active Medications Generic Name Dose Route Start Last Admin Trade Name Freq PRN Reason Stop Dose Admin Acetaminophen 650 mg 08/24/17 04:18 08/24/17 06:07 Tylenol - PO 650 mg Q6H PRN Administration FEVER Aspirin 81 mg 08/24/17 10:00 08/24/17 11:00 Ecotrin - PO 81 mg DAILY [facility] Administration Chlorhexidine Gluconate 1 applic 08/24/17 22:00 Hibiclens For Decolonization - TP [facility] Heparin Sodium (Porcine) 5,000 unit 08/24/17 06:00 08/24/17 05:46 Heparin - SQ 5,000 unit TID DUSTIN Administration Sodium Chloride 1,000 mls @ 75 mls/hr 08/24/17 11:30 08/24/17 11:40 Normal Saline - IV 75 mls/hr ASDIR DUSTIN Administration Magnesium Sulfate 1 gm 08/24/17 11:49 Magnesium Sulfate IVPB 08/24/17 11:50 ONCE ONE Mupirocin 1 applic 08/24/17 10:00 08/24/17 11:01 Bactroban Ointment (For Decolonization) - NS 08/29/17 09:59 1 applic BID D[facility]IN Administration Oseltamivir Phosphate 30 mg 08/24/17 10:00 08/24/17 11:01 Tamiflu - PO 08/29/17 09:59 30 mg BID D[facility]IN Administration Rosuvastatin Calcium 5 mg 08/24/17 22:00 Crestor - PO [facility] ASSESSMENT/PLAN: Patient is a 77 yo female with significant past medical history of hypothyroidism after pituitary resection for pituitary adenoma 6 yrs ago, and HLD admitted to the ICU for AMS and fever. # Neurology: AMS improved. Most likely secondary to flu and Hyponatremia. LP was done in the ED, meningitis ruled out Headache, resolved with Fiorocet. No indication of antibiotics needed at this time IV NS @ 75 mls/hr # Respiratory Flu swab sent for Influenza Likely has Flu- has fever, myalgia, weakness, lethargy and sick contact 4 days ago Tmax 102.1 F, resolved with tylenol On Tamiflu 30mg PO BID, will increase to 75mg PO BID (renal function normal) CXR th: Normal, no acute pathology. Oxygen PRN # Endocrine: Hypothyroidism after pituitary resection for pituitary adenoma 6 yrs ago TSH: 0.04, pt is on synthroid, confirmed with pharmacy, pt takes Synthroid 50mcg PO Daily. # Cardiovascular: No active issues # FEN IV NS @ 75mls.hr Electrolytes: Hypomagnesemia-repleted, hyponatremia-will give IVF, corrected Omer normal. Regular diet # Prophylaxis For DVT: On Heparin 5000 IU sq TID For GI: Not indicated # Code Status: Full Code # Dispo: Stable to be transferred to Med-surg. Illness, Investigation and Plan of care explained to the patient and her . They verbalized understanding. Dr. Jung (pts HCP and a physician) called this morning to get updates and is aware of the undergoing medical treatment of the patient. Case discussed with Dr. Drake. Visit type - Emergency Visit Emergency Visit: Yes ED Registration Date: 08/24/17 Care time: The patient presented to the Emergency Department on the above date and was hospitalized for further evaluation of their emergent condition. - New Patient This patient is new to me today: Yes Date on this admission: 08/24/17 - Critical Care Critical Care patient: Yes Total Critical Care Time (in minutes): 40 Critical Care Statement: The care of this patient involved high complexity decision making to prevent further life threatening deterioration of the patient 's condition and/or to evaluate & treat vital organ system(s) failure or risk of failure. - Discharge Referral Referred to [facility] No
[2017-08-24] MEDS ORDERED: MAGNESIUM SULF 50% (8.12 MEQ/2 ML-1 GM VIAL) ONE (13:11)
--- NOTE | 2017-08-24 13:58 | PN ---
Physical Exam: SUBJECTIVE: Patient seen and examined in ICU. She feels fatigued. at bedside she was confused and has returned to baseline, the patient herself doesn 't remember. OBJECTIVE: Vital Signs Period Temp Pulse Resp BP Sys/Ulrich Pulse Ox Last 24 Hr 98.2 F-101.8 F 70-85 18-24 93-127/52-87 96-100 PE Neuro: alert,awake, cn 2-12intact Pulm: basilar crackles, diminished CV: s1 s2 rrr no mrg Abd: s nt nd + bs Ext: Warm, no le edema Laboratory Results - last 24 hr 08/23/17 08/23/17 08/24/17 23:30 23:30 07:20 WBC 3.3 L RBC 3.69 Hgb 10.8 Hct 32.9 MCV 89.2 MCH 29.4 MCHC 33.0 RDW 13.2 Plt Count 125 L MPV 10.9 Neutrophils % 47.1 Lymphocytes % 35.8 Monocytes % 16.4 H Eosinophils % 0.1 Basophils % 0.6 PT with INR INR PTT (Actin FS) VBG pH POC VBG pCO2 POC VBG pO2 Mixed VBG HCO3 Sodium Potassium Chloride Carbon Dioxide Anion Gap BUN Creatinine Creat Clearance w eGFR Random Glucose Serum Osmolality Lactic Acid Calcium Phosphorus Magnesium Total Bilirubin AST ALT Alkaline Phosphatase Creatine Kinase Troponin I Total Protein Albumin Lipase TSH Free T4 Urine Color Urine Appearance Urine pH Ur Specific Pool Urine Protein Urine Glucose (UA) Urine Ketones Urine Blood Urine Nitrite Urine Bilirubin Urine Urobilinogen Ur Leukocyte Esterase Urine RBC Urine WBC Urine Bacteria Urine Osmolality Ur Random Sodium Urine Creatinine CSF Appearance Clear Clear CSF Color Colorless Colorless CSF WBC 0 0 CSF RBC 0 61.00 CSF Neutrophils No Result Required. No Result Required. CSF Lymphocytes No Result Required. CSF Eosinophils No Result Required. CSF Basophils No Result Required. CSF Macrophages No Result Required. CSF Plasma Cells No Result Required. CSF Diff Comment No Result Required. CSF Comment CSF Glucose 45 L CSF Total Protein 38 Opiates Screen Methadone Screen Barbiturate Screen Phencyclidine Screen Ur Amphetamines Screen MDMA (Ecstasy) Screen Benzodiazepines Screen Cocaine Screen U Marijuana (THC) Screen Blood Type Antibody Screen 08/24/17 08/24/17 08/24/17 07:20 07:20 07:20 WBC RBC Hgb Hct MCV MCH MCHC RDW Plt Count MPV Neutrophils % Lymphocytes % Monocytes % Eosinophils % Basophils % PT with INR INR PTT (Actin FS) VBG pH POC VBG pCO2 POC VBG pO2 Mixed VBG HCO3 Sodium 132 L Cancelled Potassium 3.8 Cancelled Chloride 103 Cancelled Carbon Dioxide 18 L Cancelled Anion Gap 11 Cancelled BUN 10 Cancelled Creatinine 0.6 Cancelled Creat Clearance w eGFR > 60 Random Glucose 60 L Cancelled Serum Osmolality 259 L Lactic Acid Calcium 6.5 L* Cancelled Phosphorus 2.5 Magnesium 1.7 L Total Bilirubin 0.3 AST 26 ALT 18 Alkaline Phosphatase 49 Creatine Kinase Troponin I Total Protein 5.0 L Albumin 2.7 L Lipase TSH Free T4 1.30 Cancelled Urine Color Urine Appearance Urine pH Ur Specific Pool Urine Protein Urine Glucose (UA) Urine Ketones Urine Blood Urine Nitrite Urine Bilirubin Urine Urobilinogen Ur Leukocyte Esterase Urine RBC Urine WBC Urine Bacteria Urine Osmolality Cancelled Ur Random Sodium Urine Creatinine CSF Appearance CSF Color CSF WBC CSF RBC CSF Neutrophils CSF Lymphocytes CSF Eosinophils CSF Basophils CSF Macrophages CSF Plasma Cells CSF Diff Comment CSF Comment CSF Glucose CSF Total Protein Opiates Screen Methadone Screen Barbiturate Screen Phencyclidine Screen Ur Amphetamines Screen MDMA (Ecstasy) Screen Benzodiazepines Screen Cocaine Screen U Marijuana (THC) Screen Blood Type Antibody Screen 08/23/17 08/24/17 08/24/17 18:56 07:20 07:20 Lactic Acid 1.2 TSH 0.04 L Free T4 1.30 Ur Random Sodium 08/24/17 11:00 Lactic Acid TSH Free T4 Ur Random Sodium 196 08/24/17 11:00 Urine Creatinine 56.6 Active Medications Generic Name Dose Route Start Last Admin Trade Name Freq PRN Reason Stop Dose Admin Acetaminophen 650 mg 08/24/17 04:18 08/24/17 06:07 Tylenol - PO 650 mg Q6H PRN Administration FEVER Aspirin 81 mg 08/24/17 10:00 08/24/17 11:00 Ecotrin - PO 81 mg DAILY [facility] Administration Chlorhexidine Gluconate 1 applic 08/24/17 22:00 Hibiclens For Decolonization - TP HS [facility] Heparin Sodium (Porcine) 5,000 unit 08/24/17 06:00 08/24/17 13:21 Heparin - SQ 5,000 unit TID DUSTIN Administration Sodium Chloride 1,000 mls @ 75 mls/hr 08/24/17 11:30 08/24/17 11:40 Normal Saline - IV 75 mls/hr ASDIR DUSTIN Administration Mupirocin 1 applic 08/24/17 10:00 08/24/17 11:01 Bactroban Ointment (For Decolonization) - NS 08/29/17 09:59 1 applic BID DUSTIN Administration Oseltamivir Phosphate 30 mg 08/24/17 10:00 08/24/17 11:01 Tamiflu - PO 08/29/17 09:59 30 mg BID DUSTIN Administration Rosuvastatin Calcium 5 mg 08/24/17 22:00 Crestor - PO HS [facility] Imaging: - CXR negative for infiltrate/effusions Assessment: 77 year old female with pmhx of hypothyroidism after pituitary resection for pituitary adenoma 6 yrs ago, and HLD transferred from [place] with AMS and fever. Plan: 1. Presumed flu/ fevers - Febrile this AM - Follow up swab - Increase tamiflu 75mg BID (cr cl 76.74) - LP done, negative for meningitis, follow cytology/cx, r/o Zika, Dengue, Chikungunya, Hep A, Typhoid, Rabies - IVF 75cc/hr 2. Hypothyroidism after pituitary resection for pituitary adenoma 6 yrs ago - TSH noted (low), t4 wnl - Synthroid dose to be confirmed w/ pharmacy 3. HLD - Crestor 5mg HS 4. Hyponatremia - Improving - Likely due to poor po intake - Cont IVF - FeNA 1.57 indicative ATN vs pre renal, however urine collected post hydration - Repeat BMP now 5. Hypomagnesemia - Replete 1gm x1 Visit type - Emergency Visit Emergency Visit: Yes ED Registration Date: 08/24/17 Care time: The patient presented to the Emergency Department on the above date and was hospitalized for further evaluation of their emergent condition. - New Patient This patient is new to me today: Yes Date on this admission: 08/24/17 - Critical Care Critical Care patient: No
--- NOTE | 2017-08-24 14:26 | EKG ---
Test Reason : Blood Pressure : / mmHG Vent. Rate : 071 BPM Atrial Rate : 071 BPM P-R Int : 110 ms QRS Dur : 082 ms QT Int : 368 ms P-R-T Axes : 028 036 043 degrees QTc Int : 399 ms SINUS RHYTHM WITH SHORT LA ABNORMAL ECG NO PREVIOUS ECGS AVAILABLE Confirmed by INGRID ALVARADO MD ([id number] on 08/24/2017 2:25:50 PM Referred By: DR MARTE Confirmed By:INGRID ALVARADO MD
[2017-08-24] MEDS: SODIUM CHLORIDE 1,000 ML IV SCH (19:15)
[2017-08-24] MEDS ORDERED: ACETAMINOPHEN 325 MG TABLET (FP) PO PRN (19:18)
[2017-08-24] MEDS: OSELTAMIVIR PHOSPHATE 75 MG CAPSULE PO SCH (21:31)
[2017-08-24] MEDS: MUPIROCIN 2% TOPICAL OINTMENT FOR DECOLONIZATION NS SCH (21:32)
[2017-08-24] MEDS: ROSUVASTATIN CA 5 MG TABLET (FP) PO SCH (21:32)
[2017-08-24] MEDS: CHLORHEXIDINE GLUCONATE 4% CLEANSER FOR DECOLONIZATION TP SCH (21:34)
[2017-08-24] MEDS ORDERED: CHLORHEXIDINE GLUCONATE 4% CLEANSER FOR DECOLONIZATION TP SCH (22:00)
[2017-08-24] MEDS ORDERED: ROSUVASTATIN CA 5 MG TABLET (FP) PO SCH (22:00)
[2017-08-24] MEDS ORDERED: ONDANSETRON 4 MG/2 ML VIAL IVPUSH PRN (22:19)
[2017-08-24] MEDS ORDERED: guaiFENesin/CODEINE 5 ML UNIT-DOSE CUPS PO PRN (22:20)
[2017-08-25] MEDS: SODIUM CHLORIDE 1,000 ML IV SCH ×2 (04:17→09:35)
[2017-08-25] MEDS: LEVOTHYROXINE NA 50 MCG TABLET (FP) PO SCH (06:08)
[2017-08-25] MEDS: HEPARIN NA (PORCINE) 5,000 UNITS/ML 1ML VIAL SQ SCH ×2 (06:08→22:45)
[2017-08-25 06:12] LABS: HEMATOCRIT 31.8 % (32.4-45.2); HEMOGLOBIN 11.3 GM/dL (10.7-15.3); MCH 30.9 pg (25.7-33.7); MCHC 35.5 g/dl (32.0-36.0); MEAN CELL VOLUME 86.9 fl (80-96); PLATELET COUNT 121 K/MM3 (134-434); RBC 3.66 M/mm3 (3.60-5.2); RDW 13.1 % (11.6-15.6); WHITE BLOOD COUNT 3.3 K/mm3 (4.0-10.0)
[2017-08-25 06:38] LABS: ANION GAP 15 (8-16); BLOOD UREA NITROGEN 6 mg/dL (7-18); CALCIUM 7.4 mg/dL (8.5-10.1); CHLORIDE 91 mmol/L (98-107); CO2 19 mmol/L (21-32); CREATININE 0.6 mg/dL (0.55-1.02); GLUCOSE,RANDOM 60 mg/dL (74-106); MAGNESIUM 1.9 mg/dL (1.8-2.4); PHOSPHOROUS 2.1 mg/dL (2.5-4.9); POTASSIUM 3.3 mmol/L (3.5-5.1); SODIUM 125 mmol/L (136-145)
--- NOTE | 2017-08-25 08:12 | PN ---
Progress Note, Physician History of Present Illness: 77 YOF with h/o dementia, hypothyroid after pituitary resection for adenoma (6 years ago), transferred to ICU from [facility] for fever, hypotension, AMS. Additionally has c/o left sided headache yesterday, had relief with Fiorecet. Fever yesterday, relief with Tylenol. Per her mental status is back at baseline. 24 HOUR EVENTS AMS last night, stood up from bed, stripped off her gown, stood naked and urinated on the floor. SUBJECTIVE C/O nausea, RANDOLPH, ST, and dry cough, given Robutussin and Zofran. States it was a bad night. Requests additional pain medication for RANDOLPH. 24 HOUR INTAKE & OUTPUT Intake: 700cc Output: 1950cc + unmeasured voids x2 Net: -1250cc BM: Yes LINES/TUBES/DRAINS PIV - Current Medication List Current Medications: Active Medications Acetaminophen (Tylenol -) 650 mg PO Q6H PRN PRN Reason: FEVER Last Admin: 08/25/17 04:15 Dose: 650 mg Aspirin (Ecotrin -) 81 mg PO DAILY [facility] Chlorhexidine Gluconate (Hibiclens For Decolonization -) 1 applic TP HS [facility] Last Admin: 08/24/17 21:34 Dose: 1 applic Guaifenesin/Codeine Phosphate (Robitussin Ac -) 5 ml PO TID PRN PRN Reason: COUGH Last Admin: 08/24/17 22:27 Dose: 5 ml Heparin Sodium (Porcine) (Heparin -) 5,000 unit SQ TID [facility] Last Admin: 08/25/17 06:08 Dose: 5,000 unit Sodium Chloride (Normal Saline -) 1,000 mls @ 75 mls/hr IV ASDIR [facility] Last Admin: 08/25/17 04:17 Dose: 75 mls/hr Levothyroxine Sodium (Synthroid -) 50 mcg PO DAILY@0700 [facility] Last Admin: 08/25/17 06:08 Dose: 50 mcg Mupirocin (Bactroban Ointment (For Decolonization) -) 1 applic NS BID [facility] Stop: 08/29/17 09:59 Last Admin: 08/24/17 21:32 Dose: 1 applic Ondansetron HCl (Zofran Injection) 4 mg IVPUSH Q8H PRN PRN Reason: NAUSEA Last Admin: 08/24/17 22:27 Dose: 4 mg Oseltamivir Phosphate (Tamiflu -) 75 mg PO BID [facility] Stop: 08/29/17 09:59 Last Admin: 08/24/17 21:31 Dose: 75 mg Rosuvastatin Calcium (Crestor -) 5 mg PO HS [facility] Last Admin: 08/24/17 21:32 Dose: 5 mg - Objective Vital Signs: Vital Signs Temperature 99.3 F 08/25/17 06:00 Pulse Rate 68 08/25/17 06:00 Respiratory Rate 20 08/25/17 06:00 Blood Pressure 104/63 08/25/17 06:00 O2 Sat by Pulse Oximetry (%) 97 08/24/17 21:00 Constitutional: Yes: Well Nourished, Anxious, Mild Distress, Other (appears uncomfortable, answering questions appropriately) Eyes: Yes: WNL, Conjunctiva Clear, EOM Intact HENT: Yes: WNL, Atraumatic, Normocephalic. No: Hoarseness, Nasal Congestion, Pharyngeal Erythema, Thrush, Tonsillar Exudate Neck: Yes: WNL, Supple, Trachea Midline. No: Decreased ROM, Rigid Cardiovascular: Yes: WNL, Regular Rate and Rhythm Respiratory: Yes: WNL, Regular, CTA Bilaterally Gastrointestinal: Yes: WNL, Normal Bowel Sounds, Soft Musculoskeletal: Yes: WNL Extremities: Yes: WNL. No: Cold, Cyanosis, Deformity, Delayed Capillary Refill , Erythema, Pallor Edema: No Peripheral Pulses: Left Doralis Pedis: 2+, Right Dorsalis Pedis: 2+ Integumentary: Yes: WNL. No: Tenting Neurological: Yes: WNL, Alert ...Motor Strength: WNL Psychiatric: Yes: WNL Labs: CBC, BMP 08/25/17 05:25 08/25/17 05:25 INR, PTT INR 1.30 (0.82-1.09) H 08/23/17 18:56 Assessment/Plan 77 YOF with h/o dementia, hypothyroid after pituitary resection for adenoma (6 years ago), transferred to ICU from [facility] for fever, hypotension, AMS. Additionally has c/o left sided headache yesterday, had relief with Fiorecet. Fever yesterday, relief with Tylenol. Per her mental status is back at baseline. NEURO AMS, fluctuating. Most likely secondary to hyponatremia and/or flu. LP was done in the ED, meningitis ruled out. Patient hyponatremic to 125 today. -Increase NS to 100cc/h -Fiorocet prn headache -No abx for now #RANDOLPH, intermittent. H/O migraines. Given Fiorecet for RANDOLPH yesterday with relief. Also on Tylenol, states inadequate relief. Neuro exam wnl. -Add Toradol 15 mg IVPUSH now -Continue Tylenol 650 mg q6h RESP #Influenza. Fever, myalgia, weakness, lethargy, contact with flu+ individual several days ago. Flu swab initially interpreted as negative but lab corrected this result to positive. CXR : Normal, no acute pathology. -Tylenol prn fever -Continue Tamiflu 75mg PO BID (renal function normal) -Supplemental O2 to keep pulse ox >92% -Repeat CXR now as patient has developed occasional cough ID #Sepsis, improving, unknown source. LP done, BCx, UCx, CSF Cx done. Awaiting UCx results but BCx and CSF Cx NGTD. Flu swab tested negative. -FU UCx results -Monitor vitals -Adequate hydration -Continue Tamiflu ENDO #Hypothyroidism after pituitary resection for pituitary adenoma 6 yrs ago. TSH: 0.04, pt is on synthroid -Call her pharmacy and confirm Pt's medications CV No active issues FEN IV NS @ 75mls/hr Electrolytes: Hypomagnesemia-repleted, hyponatremia-will give IVF, corrected calcium normal. Regular diet PPX DVT: HSQ GI: Not indicated PT: Ordered CODE STATUS Full Code DISPO Stable to be transferred to Med/Surg
[2017-08-25] MEDS ORDERED: POTASSIUM PHOSPHATE 30 MM in SODIUM CHLORIDE 250 ML IVPB ONE (08:28)
[2017-08-25] MEDS ORDERED: MAGNESIUM 1GM/D5W - 1 GM/100 ML IVPB IVPB ONE (09:00)
[2017-08-25] MEDS ORDERED: KETOROLAC TROMETHAMINE 15 MG/ML VIAL IVPUSH ONE (09:06)
[2017-08-25] MEDS ORDERED: POTASSIUM PHOSPHATE 30 MM in DEXTROSE 5%-WATER - 250 ML IVPB ONE (09:15)
[2017-08-25] MEDS ORDERED: KETOROLAC TROMETHAMINE 30 MG/1 ML VIAL IVPUSH ONE (09:30)
[2017-08-25] MEDS: ASPIRIN COATED 81 MG TABLET.EC PO SCH (09:34)
[2017-08-25] MEDS: OSELTAMIVIR PHOSPHATE 75 MG CAPSULE PO SCH ×2 (09:38→22:43)
[2017-08-25] MEDS ORDERED: PT OWN MED DRAWER 7, Y5N ONE ×2 (09:38→16:31)
[2017-08-25] MEDS: MUPIROCIN 2% TOPICAL OINTMENT FOR DECOLONIZATION NS SCH ×2 (10:00→22:44)
[2017-08-25] MEDS ORDERED: guaiFENesin 200 MG/10 ML 10 ML UNIT-DOSE CUPS PO PRN (11:57)
--- NOTE | 2017-08-25 12:17 | PN ---
Teaching Attending Note Name of Resident: Rachel Polly ATTENDING PHYSICIAN STATEMENT I saw and evaluated the patient. I reviewed the resident's note and discussed the case with the resident. I agree with the resident's findings and plan as documented. SUBJECTIVE: Pt seen and examined in the ICU. Fever overnight. c/o headache improved with tramadol. Preliminary flu positive. Nonproductive cough. OBJECTIVE: Last Vital Signs Temp Pulse Resp BP Pulse Ox 99.0 F 58 L 13 115/78 97 08/25/17 10:00 08/25/17 10:00 08/25/17 10:00 08/25/17 10:00 08/24/17 21:00 Intake & Output 08/22/17 08/23/17 08/24/17 08/25/17 23:59 23:59 23:59 23:59 Intake Total 700 1140 Output Total 1950 300 Balance -1250 840 Weight 49.895 kg 60.282 kg 57.788 kg Gen: NAD at rest Heart: RRR Lung: decreased breath sounds at the bases Abd: soft, nontender Ext: no edema CBC, BMP 08/25/17 05:25 08/25/17 05:25 Active Medications Acetaminophen (Tylenol -) 650 mg PO Q6H PRN PRN Reason: FEVER Last Admin: 08/25/17 04:15 Dose: 650 mg Aspirin (Ecotrin -) 81 mg PO DAILY [facility] Last Admin: 08/25/17 09:34 Dose: 81 mg Chlorhexidine Gluconate (Hibiclens For Decolonization -) 1 applic TP HS [facility] Last Admin: 08/24/17 21:34 Dose: 1 applic Guaifenesin (Robitussin -) 10 ml PO Q8H PRN PRN Reason: COUGH Guaifenesin/Codeine Phosphate (Robitussin Ac -) 5 ml PO TID PRN PRN Reason: COUGH Last Admin: 08/24/17 22:27 Dose: 5 ml Heparin Sodium (Porcine) (Heparin -) 5,000 unit SQ TID [facility] Last Admin: 08/25/17 06:08 Dose: 5,000 unit Potassium Phosphate 30 mm/ (Dextrose) 260 mls @ 65 mls/hr IVPB ONCE ONE Stop: 08/25/17 13:14 Last Admin: 08/25/17 09:34 Dose: 65 mls/hr Sodium Chloride (Normal Saline -) 1,000 mls @ 100 mls/hr IV ASDIR [facility] Last Admin: 08/25/17 09:35 Dose: 100 mls/hr Levothyroxine Sodium (Synthroid -) 50 mcg PO DAILY@0700 [facility] Last Admin: 08/25/17 06:08 Dose: 50 mcg Mupirocin (Bactroban Ointment (For Decolonization) -) 1 applic NS BID [facility] Stop: 08/29/17 09:59 Last Admin: 08/24/17 21:32 Dose: 1 applic Ondansetron HCl (Zofran Injection) 4 mg IVPUSH Q8H PRN PRN Reason: NAUSEA Last Admin: 08/24/17 22:27 Dose: 4 mg Oseltamivir Phosphate (Tamiflu -) 75 mg PO BID [facility] Stop: 08/29/17 09:59 Last Admin: 08/25/17 09:38 Dose: 75 mg Rosuvastatin Calcium (Crestor -) 5 mg PO HS [facility] Last Admin: 08/24/17 21:32 Dose: 5 mg ASSESSMENT AND PLAN: Influenza Sepsis Altered Mental Status improving Hyponatremia Hypothyroidism Hypercholesterolemia - continue tamiflu - IVF - replete lytes - PO as tolerated - renal consult ordered for hyponatremia - monitor sodium level - OOB - can monitor on floor
[2017-08-25] MEDS ORDERED: ONDANSETRON 4 MG/2 ML VIAL IVPUSH ONE (12:44)
[2017-08-25] MEDS ORDERED: ONDANSETRON 4 MG/2 ML VIAL IVPUSH PRN (12:48)
[2017-08-25] MEDS ORDERED: METOCLOPRAMIDE HCL INJECTION 10 MG/2 ML VIAL IVPUSH ONE (12:50)
--- NOTE | 2017-08-25 12:53 | PN ---
Progress Note (short form) - Note Progress Note: Patient with worsened headache, nausea, some anxiety. Ordered is 10 mg Reglan, 50 mg Benadryl IV pushes.
--- NOTE | 2017-08-25 14:21 | PN ---
Progress Note (short form) - Note Progress Note: Spoke with [facility] order pharmacy where the patient and state she has most recently been getting her medications. Spoke with pharmacist who verifies current medications: rosuvastatin 5 mg daily desloratadine 5 mg daily synthroid 50 mcg daily hydrocortisone 5 mg tab 1 in AM and 1/2 in PM nasonex 2 sprays each nostril daily
[2017-08-25] MEDS ORDERED: HYDROCORTISONE 5 MG TABLET PO ONE (14:45)
[2017-08-25] MEDS ORDERED: METOCLOPRAMIDE HCL INJECTION 10 MG/2 ML VIAL IVPUSH PRN (15:01)
--- NOTE | 2017-08-25 16:17 | PN ---
Physical Exam: SUBJECTIVE: Patient seen and examined in ICU. She reports RANDOLPH, nausea, fatigue. Events: - Overnight events noted OBJECTIVE: Vital Signs Period Temp Pulse Resp BP Sys/Ulrich Pulse Ox Last 24 Hr 99.0 F-101 F 58-69 13-26 92-126/51-78 97-97 PE Neuro: alert,awake, cn 2-12intact Pulm: basilar crackles, diminished CV: s1 s2 rrr no mrg Abd: s nt nd + bs Ext: Warm, no le edema Laboratory Tests 08/25/17 08/25/17 05:25 23:30 WBC 3.3 L RBC 3.66 Hgb 11.3 Hct 31.8 L MCV 86.9 MCH 30.9 MCHC 35.5 RDW 13.1 Plt Count 121 L MPV 11.0 Sodium 123 L* Potassium 3.6 Chloride 88 L Carbon Dioxide 21 Anion Gap 14 BUN 5 L Creatinine 0.5 L Random Glucose 80 Calcium 7.7 L Active Medications Generic Name Dose Route Start Last Admin Trade Name Freq PRN Reason Stop Dose Admin Acetaminophen 650 mg 08/24/17 19:18 08/25/17 04:15 Tylenol - PO 650 mg Q6H PRN Administration FEVER Aspirin 81 mg 08/25/17 10:00 08/25/17 09:34 Ecotrin - PO 81 mg DAILY [facility] Administration Chlorhexidine Gluconate 1 applic 08/24/17 22:00 08/24/17 21:34 Hibiclens For Decolonization - TP 1 applic HS [facility] Administration Diphenhydramine HCl 50 mg 08/25/17 15:01 Benadryl Injection - IVPUSH Q6H PRN FOR ITCHING Guaifenesin 10 ml 08/25/17 11:57 Robitussin - PO Q8H PRN COUGH Guaifenesin/Codeine Phosphate 5 ml 08/24/17 22:20 08/24/17 22:27 Robitussin Ac - PO 5 ml TID PRN Administration COUGH Heparin Sodium (Porcine) 5,000 unit 08/24/17 22:00 08/25/17 06:08 Heparin - SQ 5,000 unit TID [facility] Administration Hydrocortisone 5 mg 08/26/17 08:00 Cortef - PO DAILY [facility] Hydrocortisone 2.5 mg 08/26/17 20:00 Cortef - PO DAILY [facility] Sodium Chloride 1,000 mls @ 100 mls/hr 08/25/17 09:03 08/25/17 09:35 Normal Saline - IV 100 mls/hr ASDIR [facility] Administration Levothyroxine Sodium 50 mcg 08/24/17 07:00 08/25/17 06:08 Synthroid - PO 50 mcg DAILY@0700 [facility] Administration Loratadine 10 mg 08/26/17 10:00 Claritin - PO DAILY [facility] Metoclopramide HCl 10 mg 08/25/17 15:01 Reglan Injection - IVPUSH Q6H PRN NAUSEA AND/OR VOMITING Mupirocin 1 applic 08/24/17 22:00 08/25/17 10:00 Bactroban Ointment (For Decolonization) - NS 08/29/17 09:59 1 applic BID [facility] Administration Oseltamivir Phosphate 75 mg 08/24/17 14:02 08/25/17 09:38 Tamiflu - PO 08/29/17 09:59 75 mg BID [facility] Administration Rosuvastatin Calcium 5 mg 08/24/17 22:00 08/24/17 21:32 Crestor - PO 5 mg HS [facility] Administration Assessment: 77 year old female with pmhx of hypothyroidism after pituitary resection for pituitary adenoma 6 yrs ago, and HLD transferred from [facility] with AMS and fever. Plan: 1. Influenza A - Febrile this AM - Tamiflu 75mg BID (day2) - IVF 100cc/hr 2. Hypothyroidism after pituitary resection for pituitary adenoma 6 yrs ago - Synthroid 50mcg - Restart Hydrocortisone 5mg qam 2.5mg HS - Endocrine consulted 3. HLD - Crestor 5mg HS 4. Hyponatremia - Resend urine studies - NS 100cc/hr - Renal following 5. Hypokalemia/hypophosphatemia/Hypomagnesemia - Replete Visit type - Emergency Visit Emergency Visit: Yes ED Registration Date: 08/24/17 Care time: The patient presented to the Emergency Department on the above date and was hospitalized for further evaluation of their emergent condition. - New Patient This patient is new to me today: No - Critical Care Critical Care patient: No
--- NOTE | 2017-08-25 17:13 | CONSULT ---
Consult Consult Specialty:: Nephrology Reason for Consultation:: hyponatremia - History of Present Illness Chief Complaint: altered mental status History of Present Illness: Pt is a 77 year old female with pmhx of hypothyroidism, pituitary resection, pituitary adenoma, and HLD who presents to the ER with fever and altered mental status. She is currently being treated for the Flu. I was called to evaluate her for hyponatremia. She feels nauseated and has not been eating and drinking. She is still however confused. She denies shortness of breath. She denies dysuria or hematuria. - History Source History Provided By: Patient, Medical Record - Past Medical History Cardio/Vascular: Yes: Hyperlipdemia Endocrine: Yes: Hypothyroidism - Past Surgical History Additional Surgical History: pituitary adenoma resection - Alcohol/Substance Use Hx Alcohol Use: Yes (socially a/p patient, denies every day, wouldn't quantify) History of Substance Use: reports: None - Smoking History Smoking history: Former smoker Have you smoked in the past 12 months: No - Social History Usual Living Arrangement: With Spouse Home Medications - Allergies Allergies/Adverse Reactions: Allergies Allergy/AdvReac Type Severity Reaction Status Date / Time No Known Allergies Allergy Verified 08/23/17 18:18 - Home Medications Home Medications: Ambulatory Orders Aspirin [Adult Aspirin Regimen] 81 mg PO DAILY 08/24/17 Cholecalciferol (Vitamin D3) [Vitamin D-400] 400 unit PO DAILY 08/24/17 Diazepam [Valium] 2 mg PO TID 08/24/17 Lutein 6 mg PO DAILY 08/24/17 Magnesium 250 mg PO DAILY 08/24/17 Rosuvastatin Calcium [Crestor] 5 mg PO HS 08/24/17 Hydrocortisone [Cortef -] 1 tab PO DAILY 08/25/17 Hydrocortisone [Cortef -] 2.5 mg PO DAILY 08/25/17 Levothyroxine [Synthroid -] 50 mcg PO DAILY 08/25/17 Family Disease History - Family Disease History Family History: Denies Review of Systems - Review of Systems Constitutional: reports: Chills, Fever, Malaise HENT: reports: No Symptoms Neck: reports: No Symptoms Cardiovascular: reports: No Symptoms Respiratory: reports: Cough Gastrointestinal: reports: Abdominal Pain Genitourinary: reports: No Symptoms Musculoskeletal: reports: No Symptoms Neurological: reports: Change in LOC, Confusion Psychiatric: reports: No Symptoms Physical Exam Vital Signs: Vital Signs Temperature 99.0 F 08/25/17 14:00 Pulse Rate 61 08/25/17 14:00 Respiratory Rate 20 08/25/17 14:00 Blood Pressure 115/77 08/25/17 14:00 O2 Sat by Pulse Oximetry (%) 97 08/25/17 09:00 Constitutional: Yes: Calm Eyes: Yes: Conjunctiva Clear HENT: Yes: Atraumatic Neck: Yes: Supple Cardiovascular: Yes: S1, S2 Respiratory: Yes: CTA Bilaterally Gastrointestinal: Yes: Soft Renal/: Yes: WNL Musculoskeletal: Yes: WNL Edema: No Integumentary: Yes: WNL Neurological: Yes: Confusion Labs: CBC, BMP 08/25/17 05:25 08/25/17 05:25 Laboratory Tests 08/23/17 08/23/17 08/24/17 18:56 18:56 07:20 WBC 4.6 3.3 L Sodium 126 L Serum Osmolality Urine Osmolality Ur Random Sodium 08/24/17 08/24/17 08/24/17 07:20 07:20 11:00 WBC Sodium 132 L Serum Osmolality 259 L Urine Osmolality Ur Random Sodium 196 08/24/17 08/25/17 08/25/17 11:00 05:25 05:25 WBC 3.3 L Sodium 125 L Serum Osmolality Urine Osmolality 655 Ur Random Sodium Imaging - Results Chest X-ray: Report Reviewed Problem List - Problems (1) Hyponatremia Code(s): E87.1 - HYPO-OSMOLALITY AND HYPONATREMIA (2) Altered mental status Code(s): R41.82 - ALTERED MENTAL STATUS, UNSPECIFIED (3) Fever Code(s): R50.9 - FEVER, UNSPECIFIED Assessment/Plan Current Medications Generic Name Dose Route Start Last Admin Trade Name Freq PRN Reason Stop Dose Admin Acetaminophen 650 mg 08/24/17 19:18 08/25/17 04:15 Tylenol - PO 650 mg Q6H PRN Administration FEVER Aspirin 81 mg 08/25/17 10:00 08/25/17 09:34 Ecotrin - PO 81 mg DAILY [facility] Administration Chlorhexidine Gluconate 1 applic 08/24/17 22:00 08/24/17 21:34 Hibiclens For Decolonization - TP 1 applic HS [facility] Administration Diphenhydramine HCl 50 mg 08/25/17 15:01 Benadryl Injection - IVPUSH Q6H PRN FOR ITCHING Guaifenesin 10 ml 08/25/17 11:57 Robitussin - PO Q8H PRN COUGH Guaifenesin/Codeine Phosphate 5 ml 08/24/17 22:20 08/24/17 22:27 Robitussin Ac - PO 5 ml TID PRN Administration COUGH Heparin Sodium (Porcine) 5,000 unit 08/24/17 22:00 08/25/17 06:08 Heparin - SQ 5,000 unit TID [facility] Administration Hydrocortisone 5 mg 08/26/17 08:00 Cortef - PO DAILY [facility] Hydrocortisone 2.5 mg 08/26/17 20:00 Cortef - PO DAILY [facility] Sodium Chloride 1,000 mls @ 100 mls/hr 08/25/17 09:03 08/25/17 09:35 Normal Saline - IV 100 mls/hr ASDIR [facility] Administration Levothyroxine Sodium 50 mcg 08/24/17 07:00 08/25/17 06:08 Synthroid - PO 50 mcg DAILY@0700 [facility] Administration Loratadine 10 mg 08/26/17 10:00 Claritin - PO DAILY [facility] Metoclopramide HCl 10 mg 08/25/17 15:01 Reglan Injection - IVPUSH Q6H PRN NAUSEA AND/OR VOMITING Mupirocin 1 applic 08/24/17 22:00 08/25/17 10:00 Bactroban Ointment (For Decolonization) - NS 08/29/17 09:59 1 applic BID [facility] Administration Oseltamivir Phosphate 75 mg 08/24/17 14:02 08/25/17 09:38 Tamiflu - PO 08/29/17 09:59 75 mg BID [facility] Administration Rosuvastatin Calcium 5 mg 08/24/17 22:00 08/24/17 21:32 Crestor - PO 5 mg HS [facility] Administration Impression 1. hyponatremia 2. influenza 3. hypothyroidism 4. HLD 5. altered mental status Plan - will repeat urine studies - cont saline as pt clinically appears dehydrated and is not eating - restrict free water - check cortisol and tsh levels - repeat bmp stat - discussed with medical team - urine osm is markedly elevated - repeat urine sodium Dr Cano
[2017-08-25 20:10] LABS: ANION GAP 9 (8-16); BLOOD UREA NITROGEN 6 mg/dL (7-18); CALCIUM 7.2 mg/dL (8.5-10.1); CHLORIDE 87 mmol/L (98-107); CO2 25 mmol/L (21-32); CREATININE 0.6 mg/dL (0.55-1.02); GLUCOSE,RANDOM 73 mg/dL (74-106); POTASSIUM 3.5 mmol/L (3.5-5.1)
[2017-08-25 20:37] LABS: SODIUM 121 mmol/L (136-145)
[2017-08-25] MEDS ORDERED: SODIUM CHLORIDE 3% 500 ML/500 ML INFUS.BAG IV ONE ×2 (20:46→20:49)
--- NOTE | 2017-08-25 20:52 | PN ---
Progress Note (short form) - Note Progress Note: Update 1: Urine osm 342, Urine Na 119 noted Pt's BMP resulted with Na 121. Sodium trend has been: 132 (08/24/17), 125 ( today at 06), 121 (today at 2048.) Pt received KPhos (for repletion) IV in D5W given earlier today Pt currently still confused however unchanged from initial presentation during hospital stay. Pt does listen to commands, no neurological deficits currently appreciated (facial symmetry, strength 5/5, sensation intact) . Prednisone 7.5mg given prior to result. Dr. Cano notified and advised following instructions: Hypertonic (3%) saline for 2 hours at a rate of 20cc/hr (TOTAL 40CC ONLY) --After 2 hrs discontinue hypertonic saline and restart NS@100cc/hr --Recheck BMP --New Urine specimens for urine osm and urine electrolytes collected and sent ; to be followed and Dr. Cano notified of results
[2017-08-25] MEDS ORDERED: oxyCODONE HCL 5 MG TABLET PO ONE (21:26)
[2017-08-25] MEDS ORDERED: morphine CARPU-JECT 4 MG/1 ML DISP.SYRIN IVPUSH ONE (21:27)
[2017-08-25] MEDS: ROSUVASTATIN CA 5 MG TABLET (FP) PO SCH (22:43)
[2017-08-25] MEDS: CHLORHEXIDINE GLUCONATE 4% CLEANSER FOR DECOLONIZATION TP SCH (22:46)
[2017-08-26 00:33] LABS: ANION GAP 14 (8-16); BLOOD UREA NITROGEN 5 mg/dL (7-18); CALCIUM 7.7 mg/dL (8.5-10.1); CHLORIDE 88 mmol/L (98-107); CO2 21 mmol/L (21-32); CREATININE 0.5 mg/dL (0.55-1.02); GLUCOSE,RANDOM 80 mg/dL (74-106); POTASSIUM 3.6 mmol/L (3.5-5.1)
[2017-08-26 00:36] LABS: SODIUM 123 mmol/L (136-145)
[2017-08-26 06:22] LABS: HEMATOCRIT 35.7 % (32.4-45.2); HEMOGLOBIN 12.8 GM/dL (10.7-15.3); MCH 30.8 pg (25.7-33.7); MCHC 35.9 g/dl (32.0-36.0); MEAN CELL VOLUME 85.6 fl (80-96); MEAN PLT VOLUME 11.2 fl (7.5-11.1); PLATELET COUNT 127 K/MM3 (134-434); RBC 4.17 M/mm3 (3.60-5.2); RDW 13.1 % (11.6-15.6); WHITE BLOOD COUNT 2.8 K/mm3 (4.0-10.0)
[2017-08-26 06:33] LABS: ALBUMIN 3.1 g/dl (3.4-5.0); ANION GAP 11 (8-16); BLOOD UREA NITROGEN 5 mg/dL (7-18); CALCIUM 7.2 mg/dL (8.5-10.1); CHLORIDE 93 mmol/L (98-107); CO2 22 mmol/L (21-32); CREATININE 0.5 mg/dL (0.55-1.02); GLUCOSE,RANDOM 67 mg/dL (74-106); MAGNESIUM 1.9 mg/dL (1.8-2.4); PHOSPHOROUS 2.7 mg/dL (2.5-4.9); POTASSIUM 3.8 mmol/L (3.5-5.1); SGOT/AST 37 U/L (15-37); SGPT/ALT 23 U/L (12-78); SODIUM 126 mmol/L (136-145)
[2017-08-26 06:35] LABS: ALK PHOS 61 U/L (45-117); BILIRUBIN,TOTAL 0.6 mg/dL (0.2-1.0)
[2017-08-26] MEDS: HEPARIN NA (PORCINE) 5,000 UNITS/ML 1ML VIAL SQ SCH ×3 (06:43→21:12)
[2017-08-26] MEDS: LEVOTHYROXINE NA 50 MCG TABLET (FP) PO SCH (06:43)
[2017-08-26] MEDS: SODIUM CHLORIDE 1,000 ML IV SCH ×2 (07:54→12:16)
--- NOTE | 2017-08-26 07:55 | PN ---
Progress Note, Physician History of Present Illness: 77 YOF with h/o dementia, hypothyroid, adrenal insufficiency after pituitary resection for adenoma (6 years ago), transferred to ICU from [facility] for fever, hypotension, AMS. Additionally has c/o intermittent frontal left sided headache , had relief with Fiorecet. 24 HOUR EVENTS Afebrile x24 hours. Worsened hyponatremia yesterday PM down to 123, per Dr. Cano's request gave 3% Hypertonic Saline at 20cc/hr x 2 hours, recheckec and Na was 121. Found out patient had stopped her chronic 7.5 mg/day hydrocortisone abruptly on Tuesday08/22/17, restarted this yesterday PM. (Takes this s/p pituitary resection for adenoma). SUBJECTIVE Feels much better, no more headache, no nausea, but continued decreased appetite and also feels very tired. 24 HOUR INTAKE & OUTPUT Intake: 2430cc Output: 1650cc +2 unmeasured voids Net: 780cc BM: None LINES/TUBES/DRAINS PIV only - Current Medication List Current Medications: Active Medications Acetaminophen (Tylenol -) 650 mg PO Q6H PRN PRN Reason: FEVER Last Admin: 08/25/17 04:15 Dose: 650 mg Aspirin (Ecotrin -) 81 mg PO DAILY [facility] Last Admin: 08/25/17 09:34 Dose: 81 mg Chlorhexidine Gluconate (Hibiclens For Decolonization -) 1 applic TP HS [facility] Last Admin: 08/25/17 22:46 Dose: 1 applic Diphenhydramine HCl (Benadryl Injection -) 50 mg IVPUSH Q6H PRN PRN Reason: FOR ITCHING Last Admin: 08/25/17 18:20 Dose: 50 mg Guaifenesin (Robitussin -) 10 ml PO Q8H PRN PRN Reason: COUGH Guaifenesin/Codeine Phosphate (Robitussin Ac -) 5 ml PO TID PRN PRN Reason: COUGH Last Admin: 08/24/17 22:27 Dose: 5 ml Heparin Sodium (Porcine) (Heparin -) 5,000 unit SQ TID [facility] Last Admin: 08/26/17 06:43 Dose: 5,000 unit Hydrocortisone (Cortef -) 5 mg PO DAILY@0800 [facility] Hydrocortisone (Cortef -) 2.5 mg PO DAILY@2000 [facility] Sodium Chloride (Normal Saline -) 1,000 mls @ 100 mls/hr IV ASDIR [facility] Last Admin: 08/25/17 09:35 Dose: 100 mls/hr Levothyroxine Sodium (Synthroid -) 50 mcg PO DAILY@0700 [facility] Last Admin: 08/26/17 06:43 Dose: 50 mcg Loratadine (Claritin -) 10 mg PO DAILY [facility] Metoclopramide HCl (Reglan Injection -) 10 mg IVPUSH Q6H PRN PRN Reason: NAUSEA AND/OR VOMITING Last Admin: 08/25/17 18:20 Dose: 10 mg Mupirocin (Bactroban Ointment (For Decolonization) -) 1 applic NS BID [facility] Stop: 08/29/17 09:59 Last Admin: 08/25/17 22:44 Dose: 1 applic Oseltamivir Phosphate (Tamiflu -) 75 mg PO BID [facility] Stop: 08/29/17 09:59 Last Admin: 08/25/17 22:43 Dose: 75 mg Rosuvastatin Calcium (Crestor -) 5 mg PO HS [facility] Last Admin: 08/25/17 22:43 Dose: 5 mg - Objective Vital Signs: Vital Signs Temperature 98.2 F 08/26/17 06:00 Pulse Rate 57 L 08/26/17 06:00 Respiratory Rate 18 08/26/17 06:00 Blood Pressure 120/56 08/26/17 06:00 O2 Sat by Pulse Oximetry (%) 97 08/25/17 23:49 Constitutional: Yes: Well Nourished, No Distress, Calm, Other (pleasant older female who is conversing normally and answering questions appropriately, seems to be mentating well) Eyes: Yes: WNL, Conjunctiva Clear, EOM Intact HENT: Yes: WNL, Atraumatic, Normocephalic Neck: Yes: WNL, Supple, Trachea Midline Cardiovascular: Yes: WNL, Regular Rate and Rhythm Respiratory: Yes: WNL, Regular, CTA Bilaterally. No: Diminished, Stridor Gastrointestinal: Yes: WNL, Normal Bowel Sounds, Soft Musculoskeletal: Yes: WNL Extremities: Yes: WNL. No: Calf Tenderness, Cool, Cyanosis, Erythema, Pallor Edema: No Peripheral Pulses: Left Doralis Pedis: 2+, Right Dorsalis Pedis: 2+ Integumentary: Yes: WNL Neurological: Yes: WNL, Alert, Oriented, Cran Nerves II-XII Intact (grossly). No: Confusion ...Motor Strength: WNL Psychiatric: Yes: WNL, Alert, Oriented Labs: CBC, BMP 08/26/17 05:55 08/26/17 05:55 INR, PTT INR 1.30 (0.82-1.09) H 08/23/17 18:56 Assessment/Plan 77 YOF with h/o dementia, hypothyroid after pituitary resection for adenoma (6 years ago), transferred to ICU from [facility] for fever, hypotension, AMS. Additionally has c/o left sided headache yesterday, had relief with Fiorecet. Fever yesterday, relief with Tylenol. Per her mental status is back at baseline. NEURO AMS, fluctuating. Most likely secondary to hyponatremia and/or flu. LP was done in the ED, meningitis ruled out. Patient hyponatremic to 121 yesterday even after increased to 100 cc/h NS, then given 40 cc hypertonic saline per Dr. Cano's request. This AM labs with significant serum Osm gap of 258. Asking patient about possible methanol or ethylene glycol ingestion, alcohols (acetone , isopropyl alcohol, polyethylene or propylene glycol), sugars (mannitol, sorbitol), lipids (hypertriglyceridemia) or proteins (hypergammaglobulinemia) -Transfer to floor as hyponatremia and AMS improved -Continue NS to 100cc/h -FU lipid panel -No abx for now #RANDOLPH, intermittent improving. H/O migraines. Given Fiorecet for RANDOLPH yesterday with relief. Also on Tylenol, states inadequate relief. Neuro exam wnl. -Continue Tylenol 650 mg q6h -Fiorocet prn headache RESP #Influenza. Fever, myalgia, weakness, lethargy, contact with flu+ individual several days ago. Flu swab initially interpreted as negative but lab corrected this result to positive. CXR : Normal, no acute pathology. -Tylenol prn fever -Continue Tamiflu 75mg PO BID (renal function normal) -Supplemental O2 to keep pulse ox >92% -Repeat CXR now as patient has developed occasional cough -Droplet precautions ID #Sepsis, improving, unknown source. LP done, BCx, UCx, CSF Cx done. Awaiting UCx results but BCx and CSF Cx NGTD. Flu swab tested negative. -FU UCx results -Monitor vitals -Adequate hydration -Continue Tamiflu ENDO #Hypothyroidism, chronic. Since pituitary resection for pituitary adenoma 6 yrs ago. TSH: 0.04, pt is on synthroid, dose confirmed with her pharmacy. -Continue Synthroid #Adrenal insufficiency, chronic. Also since pituitary resection for pituitary adenoma 6 yrs ago. Patient takes hydrocortisone 5 mg qAM and 2.5 mg qPM, dose confirmed with her pharmacy. -Continue hydrocortisone CV No active issues FEN IV NS @ 100mls/hr Electrolytes: Hypomagnesemia-repleted, hyponatremia-will give IVF, corrected calcium normal. Regular diet PPX DVT: HSQ GI: Not indicated PT: Ordered CODE STATUS Full Code DISPO Further ICU care
[2017-08-26] MEDS ORDERED: HYDROCORTISONE 5 MG TABLET PO SCH ×3 (08:00→20:00)
[2017-08-26] MEDS ORDERED: PT OWN MED DRAWER 7, Y5N ONE (08:09)
[2017-08-26 08:57] LABS: CHOLESTEROL 52 mg/dL (50-200); HDL CHOLESTEROL 37 mg/dL (40-60); LDL CHOLESTEROL (ONLY SJRH) 12 mg/dL (5-100)
[2017-08-26 09:01] LABS: TRIGLYCERIDES 27 mg/dL (35-160)
[2017-08-26] MEDS ORDERED: LORATADINE 10 MG TABLET PO SCH (10:00)
[2017-08-26] MEDS: OSELTAMIVIR PHOSPHATE 75 MG CAPSULE PO SCH ×2 (10:03→23:32)
[2017-08-26] MEDS: ASPIRIN COATED 81 MG TABLET.EC PO SCH (10:03)
[2017-08-26] MEDS: MUPIROCIN 2% TOPICAL OINTMENT FOR DECOLONIZATION NS SCH (10:12)
--- NOTE | 2017-08-26 11:57 | CONSULT ---
Consult Consult Specialty:: Endocrinology Referred by:: Cristela Young Reason for Consultation:: Pituitary adenoma - History of Present Illness History of Present Illness: This is a 77yo female with h/o of HLD, pituitary tumor detected about 6 years ago, s/p partial resection of the tumor, secondary hypothyroidisma and adrenal insufficiency who presented to the [facility] ED with generalized myalgias, fatigue, and weakness. Of note, about 4 days ago. Patient had dinner with a friend that was diagnosed with the flu washospitalized for treatment of the flu. It was recommended that the patient start Tamiflu, but she was unable to obtain Tamiflu at the pharmacy. She also recently came back from [facility] ~10 days ago. Denies any symptoms while in [facility]. In the ED, patient denied CP, SOB, RANDOLPH, dizziness, fever/chills, n/v/d, constipation, or any urinary complaints. Initial vitals stable with SBP in 120s, but did then developed mild hypotension of 95/60 with normal HR 80s. Fluid resuscitated with 4L NS. Labs notable for Na 126, low TSH, normal electrolytes, normal BUN/SCr, UTox neg, normal lactate. While in the ED did develop fever and mild hypotension; sepsis was suspected. Due to AMS, CT Head done which was negative for acute process. LP done to r/o meningitis and was empirically covered with Vanc 1g, Rocephin 2g , Ampicillin 2g, and Acylovir. Due to mild hypotension and concern for potential further deterioration, decision made for transfer to [facility] ICU for further management. Upon arrival to ICU, vitals stable with BP 114/52, HR 72 , O2sat 95% on RA, RR 16, but did have temp 100.8. Hospital course included development of hyponatremia, hypotension. Pt also c/o headache yesterday which has now resolved and was thought to be post spinal tap. Pt currently awake alert. Denies any complaints. Pt had last MRI of pituitary in October which was unchanged as per pt. - History Source History Provided By: Patient, Medical Record Limitations to Obtaining History: No Limitations - Past Medical History Cardio/Vascular: Yes: Hyperlipdemia Endocrine: Yes: Hypothyroidism, Other (Adrenal Insufficiency, Pituitary Adenoma s/p partial resection) - Past Surgical History Additional Surgical History: pituitary adenoma resection - Alcohol/Substance Use Hx Alcohol Use: Yes (socially a/p patient, denies every day, wouldn't quantify) History of Substance Use: reports: None - Smoking History Smoking history: Former smoker Have you smoked in the past 12 months: No - Social History Usual Living Arrangement: With Spouse Home Medications - Allergies Allergies/Adverse Reactions: Allergies Allergy/AdvReac Type Severity Reaction Status Date / Time No Known Allergies Allergy Verified 08/23/17 18:18 - Home Medications Home Medications: Ambulatory Orders Aspirin [Adult Aspirin Regimen] 81 mg PO DAILY 08/24/17 Cholecalciferol (Vitamin D3) [Vitamin D-400] 400 unit PO DAILY 08/24/17 Diazepam [Valium] 2 mg PO TID 08/24/17 Lutein 6 mg PO DAILY 08/24/17 Magnesium 250 mg PO DAILY 08/24/17 Rosuvastatin Calcium [Crestor] 5 mg PO HS 08/24/17 Hydrocortisone [Cortef -] 1 tab PO DAILY 08/25/17 Hydrocortisone [Cortef -] 2.5 mg PO DAILY 08/25/17 Levothyroxine [Synthroid -] 50 mcg PO DAILY 08/25/17 Review of Systems - Review of Systems Constitutional: reports: No Symptoms Eyes: reports: No Symptoms HENT: reports: No Symptoms Neck: reports: No Symptoms Cardiovascular: reports: No Symptoms Respiratory: reports: No Symptoms Gastrointestinal: reports: No Symptoms Genitourinary: reports: No Symptoms Musculoskeletal: reports: No Symptoms Neurological: reports: No Symptoms Endocrine: reports: No Symptoms Hematology/Lymphatic: reports: No Symptoms Physical Exam Vital Signs: Vital Signs Temperature 98.9 F 08/26/17 10:00 Pulse Rate 79 08/26/17 10:00 Respiratory Rate 18 08/26/17 10:00 Blood Pressure 113/69 08/26/17 10:00 O2 Sat by Pulse Oximetry (%) 100 08/26/17 08:00 Constitutional: Yes: No Distress, Calm Eyes: Yes: Conjunctiva Clear, EOM Intact HENT: Yes: Atraumatic, Normocephalic Neck: Yes: Supple, Trachea Midline Cardiovascular: Yes: Regular Rate and Rhythm Respiratory: Yes: Regular, CTA Bilaterally Gastrointestinal: Yes: Normal Bowel Sounds, Soft Labs: CBC, BMP 08/26/17 05:55 08/26/17 05:55 Imaging - Results Cat Scan: Report Reviewed (CT head negative: Report discussed with radiologist, Pituitary not well visualized b/o motion artifact) Assessment/Plan AMS: resolved, Hyponatremia Pituitary Adenoma s/p surgery in Secondary Hypothyrodism Sec Adrenal Insufficiency Influenza In view of presentation of AMS, 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 Had recommended a Pituitary MRI to r/o any bleeding into the tumor which pt refused. Discussed CT Head findings with radiology who felt that the pituitary looked unremarkable and repeat CT of pituitary won't add much. Pt's neurosurgeon couldn't be reached today. Pt's niece will attempt to reach him. Will increase Hydrocortisone to 50mg BID and will taper rapidly if pt continues to improve. Continue LT4 50 mcg Qd
[2017-08-26] MEDS ORDERED: ACETAMINOPHEN 325 MG TABLET (FP) PO PRN (12:09)
[2017-08-26] MEDS ORDERED: guaiFENesin/CODEINE 5 ML UNIT-DOSE CUPS PO PRN (12:09)
[2017-08-26] MEDS ORDERED: KETOROLAC TROMETHAMINE 15 MG/ML VIAL IVPUSH ONE (12:09)
[2017-08-26] MEDS ORDERED: guaiFENesin 200 MG/10 ML 10 ML UNIT-DOSE CUPS PO PRN (12:09)
[2017-08-26] MEDS ORDERED: METOCLOPRAMIDE HCL INJECTION 10 MG/2 ML VIAL IVPUSH PRN (12:09)
--- NOTE | 2017-08-26 12:09 | PN ---
Teaching Attending Note Name of Resident: Rachel Polly ATTENDING PHYSICIAN STATEMENT I saw and evaluated the patient. I reviewed the resident's note and discussed the case with the resident. I agree with the resident's findings and plan as documented. SUBJECTIVE: Patient seen and examined in the ICU. Feels generalized weakness and fatigue. Sodium improving. No CP or SOB. Some dry cough. OBJECTIVE: Intake & Output 08/23/17 08/24/17 08/25/17 08/26/17 23:59 23:59 23:59 23:59 Intake Total 700 2430 700 Output Total 1950 1650 500 Balance -1250 780 200 Weight 110 lb 132 lb 14.4 oz 127 lb 6.4 oz 127 lb 13.89 oz Last Vital Signs Temp Pulse Resp BP Pulse Ox 98.9 F 79 18 113/69 100 08/26/17 10:00 08/26/17 10:00 08/26/17 10:00 08/26/17 10:00 08/26/17 08:00 Active Medications Acetaminophen (Tylenol -) 650 mg PO Q6H PRN PRN Reason: FEVER Last Admin: 08/25/17 04:15 Dose: 650 mg Aspirin (Ecotrin -) 81 mg PO DAILY [facility] Last Admin: 08/26/17 10:03 Dose: 81 mg Chlorhexidine Gluconate (Hibiclens For Decolonization -) 1 applic TP HS [facility] Last Admin: 08/25/17 22:46 Dose: 1 applic Diphenhydramine HCl (Benadryl Injection -) 50 mg IVPUSH Q6H PRN PRN Reason: FOR ITCHING Last Admin: 08/25/17 18:20 Dose: 50 mg Guaifenesin (Robitussin -) 10 ml PO Q8H PRN PRN Reason: COUGH Guaifenesin/Codeine Phosphate (Robitussin Ac -) 5 ml PO TID PRN PRN Reason: COUGH Last Admin: 08/24/17 22:27 Dose: 5 ml Heparin Sodium (Porcine) (Heparin -) 5,000 unit SQ TID [facility] Last Admin: 08/26/17 06:43 Dose: 5,000 unit Hydrocortisone 40 mg/ (Hydrocortisone 10 mg) 50 mg PO BID [facility] Sodium Chloride (Normal Saline -) 1,000 mls @ 100 mls/hr IV ASDIR [facility] Last Admin: 08/26/17 07:54 Dose: 100 mls/hr Levothyroxine Sodium (Synthroid -) 50 mcg PO DAILY@0700 [facility] Last Admin: 08/26/17 06:43 Dose: 50 mcg Loratadine (Claritin -) 10 mg PO DAILY [facility] Last Admin: 08/26/17 10:03 Dose: 10 mg Metoclopramide HCl (Reglan Injection -) 10 mg IVPUSH Q6H PRN PRN Reason: NAUSEA AND/OR VOMITING Last Admin: 08/25/17 18:20 Dose: 10 mg Mupirocin (Bactroban Ointment (For Decolonization) -) 1 applic NS BID [facility] Stop: 08/29/17 09:59 Last Admin: 08/26/17 10:12 Dose: 1 applic Oseltamivir Phosphate (Tamiflu -) 75 mg PO BID [facility] Stop: 08/29/17 09:59 Last Admin: 08/26/17 10:03 Dose: 75 mg Rosuvastatin Calcium (Crestor -) 5 mg PO HS [facility] Last Admin: 08/25/17 22:43 Dose: 5 mg Gen: NAD, appears weak Heart: RRR Lung: decreased breath sounds at the bases Abd: soft, nontender Ext: no edema Laboratory Results - last 24 hr 08/25/17 08/25/17 08/25/17 18:00 20:50 20:50 WBC RBC Hgb Hct MCV MCH MCHC RDW Plt Count MPV Sodium 121 L* Potassium 3.5 Chloride 87 L Carbon Dioxide 25 Anion Gap 9 BUN 6 L Creatinine 0.6 Creat Clearance w eGFR Random Glucose 73 L Calcium 7.2 L Phosphorus Magnesium Total Bilirubin AST ALT Alkaline Phosphatase Total Protein Albumin Triglycerides Cholesterol Total LDL Cholesterol HDL Cholesterol Urine Osmolality 342 Ur Random Sodium 112 Ur Random Potassium 8.8 Ur Random Chloride 112 08/25/17 08/26/17 08/26/17 23:30 05:55 05:55 WBC 2.8 L RBC 4.17 Hgb 12.8 D Hct 35.7 MCV 85.6 MCH 30.8 MCHC 35.9 RDW 13.1 Plt Count 127 L MPV 11.2 H Sodium 123 L* 126 L Potassium 3.6 3.8 Chloride 88 L 93 L Carbon Dioxide 21 22 Anion Gap 14 11 BUN 5 L 5 L Creatinine 0.5 L 0.5 L Creat Clearance w eGFR > 60 Random Glucose 80 67 L Calcium 7.7 L 7.2 L Phosphorus 2.7 Magnesium 1.9 Total Bilirubin 0.6 D AST 37 ALT 23 Alkaline Phosphatase 61 Total Protein 6.0 L Albumin 3.1 L Triglycerides Cholesterol Total LDL Cholesterol HDL Cholesterol Urine Osmolality Ur Random Sodium Ur Random Potassium Ur Random Chloride 08/26/17 05:55 WBC RBC Hgb Hct MCV MCH MCHC RDW Plt Count MPV Sodium Potassium Chloride Carbon Dioxide Anion Gap BUN Creatinine Creat Clearance w eGFR Random Glucose Calcium Phosphorus Magnesium Total Bilirubin AST ALT Alkaline Phosphatase Total Protein Albumin Triglycerides 27 L Cholesterol 52 Total LDL Cholesterol 12 HDL Cholesterol 37 L Urine Osmolality Ur Random Sodium Ur Random Potassium Ur Random Chloride ASSESSMENT AND PLAN: Influenza Sepsis Altered Mental Status improving Hyponatremia Hypothyroidism Hypercholesterolemia - Tamiflu - IVF - replete lytes - PO as tolerated - Follow Na level - OOB - VTE prophylaxis - Floor Dr Moran Critical care time spent in reviewing chart, evaluating patient and formulating plan - 36 minutes.
--- NOTE | 2017-08-26 13:09 | PN ---
Physical Exam: SUBJECTIVE: Patient seen and examined in ICU. She reports finally feeling better. Denies RANDOLPH, energy returning. No fever. OBJECTIVE: Vital Signs Period Temp Pulse Resp BP Sys/Ulrich Pulse Ox Last 24 Hr 99.0 F-101 F 58-69 13-26 92-126/51-78 97-97 PE Neuro: alert,awake, cn 2-12intact Pulm: diminished CV: s1 s2 rrr no mrg Abd: s nt nd + bs Ext: Warm, no le edema CBCD WBC 2.8 K/mm3 (4.0-10.0) L 08/26/17 05:55 RBC 4.17 M/mm3 (3.60-5.2) 08/26/17 05:55 Hgb 12.8 GM/dL (10.7-15.3) D 08/26/17 05:55 Hct 35.7 % (32.4-45.2) 08/26/17 05:55 MCV 85.6 fl (80-96) 08/26/17 05:55 MCHC 35.9 g/dl (32.0-36.0) 08/26/17 05:55 RDW 13.1 % (11.6-15.6) 08/26/17 05:55 Plt Count 127 K/MM3 (134-434) L 08/26/17 05:55 MPV 11.2 fl (7.5-11.1) H 08/26/17 05:55 CMP Sodium 126 mmol/L (136-145) L 08/26/17 05:55 Potassium 3.8 mmol/L (3.5-5.1) 08/26/17 05:55 Chloride 93 mmol/L (98-107) L 08/26/17 05:55 Carbon Dioxide 22 mmol/L (21-32) 08/26/17 05:55 Anion Gap 11 (8-16) 08/26/17 05:55 BUN 5 mg/dL (7-18) L 08/26/17 05:55 Creatinine 0.5 mg/dL (0.55-1.02) L 08/26/17 05:55 Creat Clearance w eGFR > 60 (>60) 08/26/17 05:55 Calcium 7.2 mg/dL (8.5-10.1) L 08/26/17 05:55 Total Bilirubin 0.6 mg/dL (0.2-1.0) D 08/26/17 05:55 AST 37 U/L (15-37) 08/26/17 05:55 ALT 23 U/L (12-78) 08/26/17 05:55 Alkaline Phosphatase 61 U/L (45-117) 08/26/17 05:55 Total Protein 6.0 g/dl (6.4-8.2) L 08/26/17 05:55 Albumin 3.1 g/dl (3.4-5.0) L 08/26/17 05:55 Active Medications Generic Name Dose Route Start Last Admin Trade Name Freq PRN Reason Stop Dose Admin Acetaminophen 650 mg 08/24/17 19:18 08/25/17 04:15 Tylenol - PO 650 mg Q6H PRN Administration FEVER Aspirin 81 mg 08/25/17 10:00 08/25/17 09:34 Ecotrin - PO 81 mg DAILY [facility] Administration Chlorhexidine Gluconate 1 applic 08/24/17 22:00 08/24/17 21:34 Hibiclens For Decolonization - TP 1 applic HS [facility] Administration Diphenhydramine HCl 50 mg 08/25/17 15:01 Benadryl Injection - IVPUSH Q6H PRN FOR ITCHING Guaifenesin 10 ml 08/25/17 11:57 Robitussin - PO Q8H PRN COUGH Guaifenesin/Codeine Phosphate 5 ml 08/24/17 22:20 08/24/17 22:27 Robitussin Ac - PO 5 ml TID PRN Administration COUGH Heparin Sodium (Porcine) 5,000 unit 08/24/17 22:00 08/25/17 06:08 Heparin - SQ 5,000 unit TID [facility] Administration Hydrocortisone 5 mg 08/26/17 08:00 Cortef - PO DAILY [facility] Hydrocortisone 2.5 mg 08/26/17 20:00 Cortef - PO DAILY [facility] Sodium Chloride 1,000 mls @ 100 mls/hr 08/25/17 09:03 08/25/17 09:35 Normal Saline - IV 100 mls/hr ASDIR [facility] Administration Levothyroxine Sodium 50 mcg 08/24/17 07:00 08/25/17 06:08 Synthroid - PO 50 mcg DAILY@0700 [facility] Administration Loratadine 10 mg 08/26/17 10:00 Claritin - PO DAILY [facility] Metoclopramide HCl 10 mg 08/25/17 15:01 Reglan Injection - IVPUSH Q6H PRN NAUSEA AND/OR VOMITING Mupirocin 1 applic 08/24/17 22:00 08/25/17 10:00 Bactroban Ointment (For Decolonization) - NS 08/29/17 09:59 1 applic BID [facility] Administration Oseltamivir Phosphate 75 mg 08/24/17 14:02 08/25/17 09:38 Tamiflu - PO 08/29/17 09:59 75 mg BID [facility] Administration Rosuvastatin Calcium 5 mg 08/24/17 22:00 08/24/17 21:32 Crestor - PO 5 mg HS [facility] Administration Microbiology 08/23/17 23:30 Cerebral Spinal Fluid - Lumbar Puncture Gram Stain - Final 08/23/17 23:30 Cerebral Spinal Fluid - Lumbar Puncture CSF Culture - Final 08/23/17 18:56 Blood - Peripheral Venous Blood Culture - Preliminary NO GROWTH OBTAINED AFTER 48 HOURS, INCUBATION TO CONTINUE FOR 3 DAYS. 08/23/17 18:56 Blood - Peripheral Venous Blood Culture - Preliminary NO GROWTH OBTAINED AFTER 48 HOURS, INCUBATION TO CONTINUE FOR 3 DAYS. 08/24/17 14:30 Nasopharyngeal Swab Influenza Types A,B Antigen (KARLO) - Final 08/24/17 14:30 Nasopharyngeal Swab - Final 08/23/17 19:40 Urine - Urine Clean Catch Urine Culture - Final NO GROWTH OBTAINED 08/24/17 05:27 Urine - Urine Biswas Legionella Antigen - Final 08/24/17 05:27 Urine - Urine Biswas Streptococcus pneumoniae Antigen (M - Final Assessment: 77 year old female with pmhx of hypothyroidism after pituitary resection for pituitary adenoma 6 yrs ago, and HLD transferred from [facility] with AMS and fever. Plan: 1. Influenza A - Febrile this AM - Tamiflu 75mg BID (day3) - IVF 100cc/hr 2. Hypothyroidism after pituitary resection for pituitary adenoma 6 yrs ago - Synthroid 50mcg - Hydrocortisone 5mg qam 2.5mg HS - Endocrine seeing 3. HLD - Crestor 5mg HS 4. Hyponatremia - Improved - Urine studies noted - IVF - Renal following 5. Hypokalemia/hypophosphatemia/Hypomagnesemia - Resolved 6. DVT - Heparin q8 Visit type - Emergency Visit Emergency Visit: Yes ED Registration Date: 08/24/17 Care time: The patient presented to the Emergency Department on the above date and was hospitalized for further evaluation of their emergent condition. - New Patient This patient is new to me today: No - Critical Care Critical Care patient: No
[2017-08-26] MEDS: HYDROCORTISONE 40 MG, HYDROCORTISONE 10 MG PO SCH ×2 (13:17→21:10)
--- NOTE | 2017-08-26 16:25 | PN ---
Progress Note (short form) - Note Progress Note: Patient was offered to do an MRI of brain however she refused as she has claustrophobia. She had a Brain MRI done last year. Called patients neurosurgeon ( Dr. Paula Luong -[phone]), office currently closed to get more information regarding pituitary resection and her current treatment regimen.
--- NOTE | 2017-08-26 17:36 | PN ---
Progress Note, Physician History of Present Illness: Pt seen and examined at bedside. Her mental status is markedly improved from yesterday. She denies headache. She says that she feels much better. - Current Medication List Current Medications: Active Medications Acetaminophen (Tylenol -) 650 mg PO Q6H PRN PRN Reason: FEVER Aspirin (Ecotrin -) 81 mg PO DAILY [facility] Chlorhexidine Gluconate (Hibiclens For Decolonization -) 1 applic TP HS [facility] Diphenhydramine HCl (Benadryl Injection -) 50 mg IVPUSH Q6H PRN PRN Reason: FOR ITCHING Guaifenesin (Robitussin -) 10 ml PO Q8H PRN PRN Reason: COUGH Last Admin: 08/26/17 14:12 Dose: 10 ml Guaifenesin/Codeine Phosphate (Robitussin Ac -) 5 ml PO TID PRN PRN Reason: COUGH Heparin Sodium (Porcine) (Heparin -) 5,000 unit SQ TID [facility] Last Admin: 08/26/17 13:18 Dose: 5,000 unit Hydrocortisone 40 mg/ (Hydrocortisone 10 mg) 50 mg PO BID [facility] Last Admin: 08/26/17 13:17 Dose: 50 mg Sodium Chloride (Normal Saline -) 1,000 mls @ 100 mls/hr IV ASDIR [facility] Last Admin: 08/26/17 12:16 Dose: Not Given Levothyroxine Sodium (Synthroid -) 50 mcg PO DAILY@0700 [facility] Loratadine (Claritin -) 10 mg PO DAILY [facility] Metoclopramide HCl (Reglan Injection -) 10 mg IVPUSH Q6H PRN PRN Reason: NAUSEA AND/OR VOMITING Mupirocin (Bactroban Ointment (For Decolonization) -) 1 applic NS BID [facility] Stop: 08/29/17 09:59 Oseltamivir Phosphate (Tamiflu -) 75 mg PO BID [facility] Stop: 08/29/17 09:59 Rosuvastatin Calcium (Crestor -) 5 mg PO [facility] - Objective Vital Signs: Vital Signs Temperature 97.3 F L 08/26/17 14:00 Pulse Rate 82 08/26/17 16:00 Respiratory Rate 18 08/26/17 16:00 Blood Pressure 101/82 08/26/17 16:00 O2 Sat by Pulse Oximetry (%) 100 08/26/17 08:00 Constitutional: Yes: Calm Eyes: Yes: Conjunctiva Clear HENT: Yes: Atraumatic Cardiovascular: Yes: S1, S2 Respiratory: Yes: CTA Bilaterally Gastrointestinal: Yes: Soft Genitourinary: Yes: WNL Musculoskeletal: Yes: WNL Edema: No Neurological: Yes: Oriented Psychiatric: Yes: Oriented Labs: CBC, BMP 08/26/17 05:55 08/26/17 05:55 INR, PTT INR 1.30 (0.82-1.09) H 08/23/17 18:56 Problem List - Problems (1) Hyponatremia Code(s): E87.1 - HYPO-OSMOLALITY AND HYPONATREMIA (2) Altered mental status Code(s): R41.82 - ALTERED MENTAL STATUS, UNSPECIFIED (3) Fever Code(s): R50.9 - FEVER, UNSPECIFIED Assessment/Plan Current Medications Generic Name Dose Route Start Last Admin Trade Name Freq PRN Reason Stop Dose Admin Acetaminophen 650 mg 08/26/17 12:09 Tylenol - PO Q6H PRN FEVER Aspirin 81 mg 08/27/17 10:00 Ecotrin - PO DAILY [facility] Chlorhexidine Gluconate 1 applic 08/26/17 22:00 Hibiclens For Decolonization - TP HS [facility] Diphenhydramine HCl 50 mg 08/26/17 12:09 Benadryl Injection - IVPUSH Q6H PRN FOR ITCHING Guaifenesin 10 ml 08/26/17 12:09 08/26/17 14:12 Robitussin - PO 10 ml Q8H PRN Administration COUGH Guaifenesin/Codeine Phosphate 5 ml 08/26/17 12:09 Robitussin Ac - PO TID PRN COUGH Heparin Sodium (Porcine) 5,000 unit 08/26/17 14:00 08/26/17 13:18 Heparin - SQ 5,000 unit TID [facility] Administration Hydrocortisone 40 mg/ 50 mg 08/26/17 12:15 08/26/17 13:17 Hydrocortisone 10 mg PO 50 mg BID [facility] Administration Sodium Chloride 1,000 mls @ 100 mls/hr 08/26/17 12:09 08/26/17 12:16 Normal Saline - IV Not Given ASDIR [facility] Levothyroxine Sodium 50 mcg 08/27/17 07:00 Synthroid - PO DAILY@0700 [facility] Loratadine 10 mg 08/27/17 10:00 Claritin - PO DAILY [facility] Metoclopramide HCl 10 mg 08/26/17 12:09 Reglan Injection - IVPUSH Q6H PRN NAUSEA AND/OR VOMITING Mupirocin 1 applic 08/26/17 22:00 Bactroban Ointment (For Decolonization) - NS 08/29/17 09:59 BID [facility] Oseltamivir Phosphate 75 mg 08/26/17 22:00 Tamiflu - PO 08/29/17 09:59 BID [facility] Rosuvastatin Calcium 5 mg 08/26/17 22:00 Crestor - PO HS [facility] Impression 1. hyponatremia 2. influenza 3. hypothyroidism 4. HLD 5. altered mental status Plan - cont with saline - sodium is improving - encourage PO intake - endocrine input appreciated - cont to monitor bmp - monitor in ICU - discussed with medical team Dr Cano
[2017-08-26] MEDS ORDERED: CHLORHEXIDINE GLUCONATE 4% CLEANSER FOR DECOLONIZATION TP SCH (22:00)
[2017-08-26] MEDS ORDERED: ROSUVASTATIN CA 5 MG TABLET (FP) PO SCH (22:00)
[2017-08-27] MEDS: SODIUM CHLORIDE 1,000 ML IV SCH (06:35)
[2017-08-27] MEDS: HEPARIN NA (PORCINE) 5,000 UNITS/ML 1ML VIAL SQ SCH ×3 (06:36→21:57)
[2017-08-27 06:40] LABS: BASO % 0.2 % (0-2.0); HEMOGLOBIN 12.5 GM/dL (10.7-15.3); LYMPH % 9.7 % (8-40); MCH 30.8 pg (25.7-33.7); MCHC 35.7 g/dl (32.0-36.0); MEAN CELL VOLUME 86.3 fl (80-96); MEAN PLT VOLUME 11.2 fl (7.5-11.1); MONO % 8.6 % (3.8-10.2); NEUT % 81.5 % (42.8-82.8); PLATELET COUNT 164 K/MM3 (134-434); RBC 4.06 M/mm3 (3.60-5.2); RDW 13.1 % (11.6-15.6); WHITE BLOOD COUNT 5.9 K/mm3 (4.0-10.0)
[2017-08-27 06:51] LABS: INR 1.04 (0.82-1.09); PROTHROMBIN TIME (PATIENT) 11.8 SEC (9.98-11.88)
[2017-08-27 06:54] LABS: ACTIVATED PTT 28.9 SECONDS (26.9-34.4)
[2017-08-27] MEDS ORDERED: LEVOTHYROXINE NA 50 MCG TABLET (FP) PO SCH (07:00)
[2017-08-27 07:05] LABS: ALBUMIN 2.9 g/dl (3.4-5.0); ANION GAP 13 (8-16); BLOOD UREA NITROGEN 6 mg/dL (7-18); CALCIUM 7.9 mg/dL (8.5-10.1); CHLORIDE 106 mmol/L (98-107); CO2 21 mmol/L (21-32); GLUCOSE,RANDOM 113 mg/dL (74-106); MAGNESIUM 2.2 mg/dL (1.8-2.4); PHOSPHOROUS 2.2 mg/dL (2.5-4.9); POTASSIUM 3.7 mmol/L (3.5-5.1); SGOT/AST 32 U/L (15-37); SODIUM 140 mmol/L (136-145)
[2017-08-27 07:08] LABS: ALK PHOS 56 U/L (45-117); BILIRUBIN,TOTAL 0.3 mg/dL (0.2-1.0); CREATININE 0.6 mg/dL (0.55-1.02); SGPT/ALT 22 U/L (12-78); TOT PROT 5.9 g/dl (6.4-8.2)
[2017-08-27] MEDS ORDERED: PT OWN MED DRAWER 7, Y5N ONE (09:01)
[2017-08-27] MEDS ORDERED: ASPIRIN COATED 81 MG TABLET.EC PO SCH (10:00)
[2017-08-27] MEDS ORDERED: LORATADINE 10 MG TABLET PO SCH (10:00)
[2017-08-27] MEDS: OSELTAMIVIR PHOSPHATE 75 MG CAPSULE PO SCH ×2 (10:17→21:56)
[2017-08-27] MEDS: MUPIROCIN 2% TOPICAL OINTMENT FOR DECOLONIZATION NS SCH ×2 (10:18)
--- NOTE | 2017-08-27 10:58 | PN ---
Progress Note (short form) - Note Progress Note: Feels good Still with cough and postnasal drip Vital Signs Period Temp Pulse Resp BP Sys/Ulrich Pulse Ox Last 24 Hr 97.3 F-98.5 F 65-82 18-20 75-125/50-95 100 PE: AOx3 Neck: Supple, No JVD HEENT: PERRL, EOMI Lungs: CTA Abd: Benign CVS: S1S2 Ext: No edema Neuro: No focal deficit CMP Sodium 140 mmol/L (136-145) 08/27/17 05:45 Potassium 3.7 mmol/L (3.5-5.1) 08/27/17 05:45 Chloride 106 mmol/L (98-107) 08/27/17 05:45 Carbon Dioxide 21 mmol/L (21-32) 08/27/17 05:45 Anion Gap 13 (8-16) 08/27/17 05:45 BUN 6 mg/dL (7-18) L 08/27/17 05:45 Creatinine 0.6 mg/dL (0.55-1.02) 08/27/17 05:45 Creat Clearance w eGFR > 60 (>60) 08/27/17 05:45 Random Glucose 113 mg/dL (74-106) H 08/27/17 05:45 Serum Osmolality 259 mosm/kg (278-305) L 08/24/17 07:20 Lactic Acid 1.2 mmol/L (0.0-2.0) 08/24/17 07:20 Calcium 7.9 mg/dL (8.5-10.1) L 08/27/17 05:45 Phosphorus 2.2 mg/dL (2.5-4.9) L 08/27/17 05:45 Magnesium 2.2 mg/dL (1.8-2.4) 08/27/17 05:45 Total Bilirubin 0.3 mg/dL (0.2-1.0) D 08/27/17 05:45 AST 32 U/L (15-37) 08/27/17 05:45 ALT 22 U/L (12-78) 08/27/17 05:45 Alkaline Phosphatase 56 U/L (45-117) 08/27/17 05:45 Creatine Kinase 116 IU/L (26-192) 08/23/17 18:56 Troponin I 0.00 ng/ml (0.00-0.05) 08/23/17 18:56 Total Protein 5.9 g/dl (6.4-8.2) L 08/27/17 05:45 Albumin 2.9 g/dl (3.4-5.0) L 08/27/17 05:45 Triglycerides 27 mg/dL (35-160) L 08/26/17 05:55 Cholesterol 52 mg/dL (50-200) 08/26/17 05:55 Total LDL Cholesterol 12 mg/dL (5-100) 08/26/17 05:55 HDL Cholesterol 37 mg/dL (40-60) L 08/26/17 05:55 Lipase 235 U/L (73-393) 08/24/17 07:20 TSH 0.04 uIU/ml (0.358-3.74) L 08/23/17 18:56 Free T4 1.30 ng/dl (0.76-1.46) 08/24/17 07:20 Cortisol AM Sample 5.5 ug/dL (.) 08/26/17 05:55 Current Medications Generic Name Dose Route Start Last Admin Trade Name Freq PRN Reason Stop Dose Admin Acetaminophen 650 mg 08/26/17 12:09 Tylenol - PO Q6H PRN FEVER Aspirin 81 mg 08/27/17 10:00 08/27/17 10:18 Ecotrin - PO 81 mg DAILY [facility] Administration Chlorhexidine Gluconate 1 applic 08/26/17 22:00 08/26/17 21:12 Hibiclens For Decolonization - TP 1 applic HS [facility] Administration Diphenhydramine HCl 50 mg 08/26/17 12:09 Benadryl Injection - IVPUSH Q6H PRN FOR ITCHING Guaifenesin 10 ml 08/26/17 12:09 08/26/17 14:12 Robitussin - PO 10 ml Q8H PRN Administration COUGH Guaifenesin/Codeine Phosphate 5 ml 08/26/17 12:09 08/26/17 22:59 Robitussin Ac - PO 5 ml TID PRN Administration COUGH Heparin Sodium (Porcine) 5,000 unit 08/26/17 14:00 08/27/17 06:36 Heparin - SQ 5,000 unit TID [facility] Administration Hydrocortisone 40 mg/ 50 mg 08/26/17 12:15 08/26/17 21:10 Hydrocortisone 10 mg PO 50 mg BID [facility] Administration Sodium Chloride 1,000 mls @ 100 mls/hr 08/26/17 12:09 08/27/17 06:35 Normal Saline - IV 100 mls/hr ASDIR [facility] Administration Levothyroxine Sodium 50 mcg 08/27/17 07:00 08/27/17 06:37 Synthroid - PO 50 mcg DAILY@0700 [facility] Administration Loratadine 10 mg 08/27/17 10:00 08/27/17 10:16 Claritin - PO 10 mg DAILY [facility] Administration Metoclopramide HCl 10 mg 08/26/17 12:09 Reglan Injection - IVPUSH Q6H PRN NAUSEA AND/OR VOMITING Mupirocin 1 applic 08/26/17 22:00 08/27/17 10:18 Bactroban Ointment (For Decolonization) - NS 08/29/17 09:59 1 appful BID [facility] Administration Oseltamivir Phosphate 75 mg 08/26/17 22:00 08/27/17 10:17 Tamiflu - PO 08/29/17 09:59 75 mg BID [facility] Administration Rosuvastatin Calcium 5 mg 08/26/17 22:00 08/26/17 23:32 Crestor - PO 5 mg HS [facility] Administration AMS: resolved, Hyponatremia: resolved 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 As per neurosurgery consult note in pt's phone, as of December 2016, the size of the tumor was decreasing. However actual size was not mentioned. Had recommended a Pituitary MRI to r/o any bleeding into the tumor which pt refused. Discussed CT Head findings with radiology who felt that the pituitary looked unremarkable and repeat CT of pituitary won't add much. Will increase Hydrocortisone to 50mg BID and will taper rapidly if pt continues to improve. Continue Hydrocortisone 50mg BID Lowest systolic BP 75 last night Will decrease to 25 BID starting tomorrow if stable Will discharge on Hydrocortisone 20 in the morning and 10 at 2 p.m. Pt to f/u with her [employer] and adjust dose as necessary. She was getting Hydrocortisone 7.5mg Daily LT4 50mcg QD
--- NOTE | 2017-08-27 11:18 | PN ---
Progress Note (short form) - Note Progress Note: PULMONARY/CCM Pt seen and examined in the ICU. Mental status normal. No fevers or chills. No shortness of breath or chest pain. Sodium level normalized. Last Vital Signs Temp Pulse Resp BP Pulse Ox 98.4 F 79 20 98/80 100 08/27/17 10:00 08/27/17 10:00 08/27/17 10:00 08/27/17 10:00 08/26/17 20:14 Intake & Output 08/24/17 08/25/17 08/26/17 08/27/17 23:59 23:59 23:59 23:59 Intake Total 700 2430 2900 1200 Output Total 1950 1650 3000 400 Balance -1250 780 -100 800 Weight 60.282 kg 57.788 kg 58 kg 57 kg Gen: NAD at rest Heart: RRR Lung: decreased breath sounds at the bases Abd: soft, nontender Ext: no edema CBC, BMP 08/27/17 05:45 08/27/17 05:45 Active Medications Acetaminophen (Tylenol -) 650 mg PO Q6H PRN PRN Reason: FEVER Aspirin (Ecotrin -) 81 mg PO DAILY [facility] Last Admin: 08/27/17 10:18 Dose: 81 mg Chlorhexidine Gluconate (Hibiclens For Decolonization -) 1 applic TP HS [facility] Last Admin: 08/26/17 21:12 Dose: 1 applic Diphenhydramine HCl (Benadryl Injection -) 50 mg IVPUSH Q6H PRN PRN Reason: FOR ITCHING Guaifenesin (Robitussin -) 10 ml PO Q8H PRN PRN Reason: COUGH Last Admin: 08/26/17 14:12 Dose: 10 ml Guaifenesin/Codeine Phosphate (Robitussin Ac -) 5 ml PO TID PRN PRN Reason: COUGH Last Admin: 08/26/17 22:59 Dose: 5 ml Heparin Sodium (Porcine) (Heparin -) 5,000 unit SQ TID [facility] Last Admin: 08/27/17 06:36 Dose: 5,000 unit Hydrocortisone 40 mg/ (Hydrocortisone 10 mg) 50 mg PO BID [facility] Last Admin: 08/26/17 21:10 Dose: 50 mg Sodium Chloride (Normal Saline -) 1,000 mls @ 100 mls/hr IV ASDIR [facility] Last Admin: 08/27/17 06:35 Dose: 100 mls/hr Levothyroxine Sodium (Synthroid -) 50 mcg PO DAILY@0700 [facility] Last Admin: 08/27/17 06:37 Dose: 50 mcg Loratadine (Claritin -) 10 mg PO DAILY [facility] Last Admin: 08/27/17 10:16 Dose: 10 mg Metoclopramide HCl (Reglan Injection -) 10 mg IVPUSH Q6H PRN PRN Reason: NAUSEA AND/OR VOMITING Mupirocin (Bactroban Ointment (For Decolonization) -) 1 applic NS BID [facility] Stop: 08/29/17 09:59 Last Admin: 08/27/17 10:18 Dose: 1 appful Oseltamivir Phosphate (Tamiflu -) 75 mg PO BID [facility] Stop: 08/29/17 09:59 Last Admin: 08/27/17 10:17 Dose: 75 mg Rosuvastatin Calcium (Crestor -) 5 mg PO HS [facility] Last Admin: 08/26/17 23:32 Dose: 5 mg A/P Influenza A Sepsis resolved Altered Mental Status improved Hyponatremia resolved Hypothyroidism Hypercholesterolemia - complete tamiflu - IVF per renal - PO as tolerated - OOB - can monitor on floor
--- NOTE | 2017-08-27 11:36 | PN ---
Physical Exam: SUBJECTIVE: Patient seen and examined in ICU. c/o increased post nasal drip, fatigue with exertion and RANDOLPH that just started. OBJECTIVE: Vital Signs Period Temp Pulse Resp BP Sys/Ulrich Pulse Ox Last 24 Hr 97.3 F-98.5 F 65-86 18-20 75-125/50-95 100 PE Neuro: alert,awake, cn 2-12intact Pulm: scattered r base crackles CV: s1 s2 rrr no mrg Abd: s nt nd + bs Ext: Warm, no le edema Laboratory Results - last 24 hr 08/26/17 08/27/17 08/27/17 05:55 05:45 05:45 WBC 5.9 D RBC 4.06 Hgb 12.5 Hct 35.0 MCV 86.3 MCH 30.8 MCHC 35.7 RDW 13.1 Plt Count 164 D MPV 11.2 H Neutrophils % 81.5 D Lymphocytes % 9.7 D Monocytes % 8.6 Eosinophils % 0.0 D Basophils % 0.2 PT with INR 11.80 INR 1.04 PTT (Actin FS) 28.9 Sodium Potassium Chloride Carbon Dioxide Anion Gap BUN Creatinine Creat Clearance w eGFR Random Glucose Calcium Phosphorus Magnesium Total Bilirubin AST ALT Alkaline Phosphatase Total Protein Albumin Cortisol AM Sample 5.5 08/27/17 05:45 WBC RBC Hgb Hct MCV MCH MCHC RDW Plt Count MPV Neutrophils % Lymphocytes % Monocytes % Eosinophils % Basophils % PT with INR INR PTT (Actin FS) Sodium 140 Potassium 3.7 Chloride 106 Carbon Dioxide 21 Anion Gap 13 BUN 6 L Creatinine 0.6 Creat Clearance w eGFR > 60 Random Glucose 113 H Calcium 7.9 L Phosphorus 2.2 L Magnesium 2.2 Total Bilirubin 0.3 D AST 32 ALT 22 Alkaline Phosphatase 56 Total Protein 5.9 L Albumin 2.9 L Cortisol AM Sample Active Medications Generic Name Dose Route Start Last Admin Trade Name Freq PRN Reason Stop Dose Admin Acetaminophen 650 mg 08/26/17 12:09 Tylenol - PO Q6H PRN FEVER Aspirin 81 mg 08/27/17 10:00 08/27/17 10:18 Ecotrin - PO 81 mg DAILY [facility] Administration Chlorhexidine Gluconate 1 applic 08/26/17 22:00 08/26/17 21:12 Hibiclens For Decolonization - TP 1 applic HS [facility] Administration Diphenhydramine HCl 50 mg 08/26/17 12:09 Benadryl Injection - IVPUSH Q6H PRN FOR ITCHING Guaifenesin 10 ml 08/26/17 12:09 08/26/17 14:12 Robitussin - PO 10 ml Q8H PRN Administration COUGH Guaifenesin/Codeine Phosphate 5 ml 08/26/17 12:09 08/26/17 22:59 Robitussin Ac - PO 5 ml TID PRN Administration COUGH Heparin Sodium (Porcine) 5,000 unit 08/26/17 14:00 08/27/17 06:36 Heparin - SQ 5,000 unit TID [facility] Administration Hydrocortisone 40 mg/ 50 mg 08/26/17 12:15 08/26/17 21:10 Hydrocortisone 10 mg PO 50 mg BID [facility] Administration Levothyroxine Sodium 50 mcg 08/27/17 07:00 08/27/17 06:37 Synthroid - PO 50 mcg DAILY@0700 [facility] Administration Loratadine 10 mg 08/27/17 10:00 08/27/17 10:16 Claritin - PO 10 mg DAILY [facility] Administration Metoclopramide HCl 10 mg 08/26/17 12:09 Reglan Injection - IVPUSH Q6H PRN NAUSEA AND/OR VOMITING Mupirocin 1 applic 08/26/17 22:00 08/27/17 10:18 Bactroban Ointment (For Decolonization) - NS 08/29/17 09:59 1 appful BID [facility] Administration Oseltamivir Phosphate 75 mg 08/26/17 22:00 08/27/17 10:17 Tamiflu - PO 08/29/17 09:59 75 mg BID [facility] Administration Potassium Phos/Sodium Phos 2 packet 08/27/17 11:26 Phos-Nak Packet - PO 08/27/17 11:27 ONCE ONE Rosuvastatin Calcium 5 mg 08/26/17 22:00 08/26/17 23:32 Crestor - PO 5 mg HS [facility] Administration Assessment: 77 year old female with pmhx of hypothyroidism after pituitary resection for pituitary adenoma 6 yrs ago, and HLD transferred from [place] with AMS and fever. Plan: 1. Influenza A - Tamiflu 75mg BID (day 4) 2. Hypothyroidism after pituitary resection for pituitary adenoma 6 yrs ago - Most recent MRI done 10/2106, reviewed radiology input w/ endocrine on head CT re: pituitary, hold off on repeat imaging at this time - Synthroid 50mcg - Rapid hydrocortisone taper 50mg BID today, 25mg BID tomorrow, home 20mg qam, 10mg @1400 - d/w endocrine 3. HLD - Crestor 5mg HS 4. Hyponatremia - WNL - Stop fluids - Renal seeing 5. Hypophosphatemia - Replete kphos 2pkts now 6. DVT - Heparin q8 Visit type - Emergency Visit Emergency Visit: Yes ED Registration Date: 08/24/17 Care time: The patient presented to the Emergency Department on the above date and was hospitalized for further evaluation of their emergent condition. - New Patient This patient is new to me today: No - Critical Care Critical Care patient: No
[2017-08-27] MEDS: HYDROCORTISONE 40 MG, HYDROCORTISONE 10 MG PO SCH ×2 (11:47→21:56)
[2017-08-27] MEDS ORDERED: NAPH,MB-DB/K PH,MBDB POWDER PACKET PO ONE (12:30)
--- NOTE | 2017-08-27 12:45 | PN ---
Progress Note (short form) - Note Progress Note: covering dr conklin seen in icu Problems 1. hyponatremia 2. influenza 3. hypothyroidism 4. HLD 5. altered mental status Active Medications Acetaminophen (Tylenol -) 650 mg PO Q6H PRN PRN Reason: FEVER Aspirin (Ecotrin -) 81 mg PO DAILY [facility] Last Admin: 08/27/17 10:18 Dose: 81 mg Chlorhexidine Gluconate (Hibiclens For Decolonization -) 1 applic TP HS [facility] Last Admin: 08/26/17 21:12 Dose: 1 applic Diphenhydramine HCl (Benadryl Injection -) 50 mg IVPUSH Q6H PRN PRN Reason: FOR ITCHING Guaifenesin (Robitussin -) 10 ml PO Q8H PRN PRN Reason: COUGH Last Admin: 08/26/17 14:12 Dose: 10 ml Guaifenesin/Codeine Phosphate (Robitussin Ac -) 5 ml PO TID PRN PRN Reason: COUGH Last Admin: 08/26/17 22:59 Dose: 5 ml Heparin Sodium (Porcine) (Heparin -) 5,000 unit SQ TID [facility] Last Admin: 08/27/17 06:36 Dose: 5,000 unit Hydrocortisone 40 mg/ (Hydrocortisone 10 mg) 50 mg PO BID [facility] Last Admin: 08/27/17 11:47 Dose: 50 mg Levothyroxine Sodium (Synthroid -) 50 mcg PO DAILY@0700 [facility] Last Admin: 08/27/17 06:37 Dose: 50 mcg Loratadine (Claritin -) 10 mg PO DAILY [facility] Last Admin: 08/27/17 10:16 Dose: 10 mg Metoclopramide HCl (Reglan Injection -) 10 mg IVPUSH Q6H PRN PRN Reason: NAUSEA AND/OR VOMITING Mupirocin (Bactroban Ointment (For Decolonization) -) 1 applic NS BID [facility] Stop: 08/29/17 09:59 Last Admin: 08/27/17 10:18 Dose: 1 appful Oseltamivir Phosphate (Tamiflu -) 75 mg PO BID [facility] Stop: 08/29/17 09:59 Last Admin: 08/27/17 10:17 Dose: 75 mg Rosuvastatin Calcium (Crestor -) 5 mg PO HS [facility] Last Admin: 08/26/17 23:32 Dose: 5 mg Last Vital Signs Temp Pulse Resp BP Pulse Ox 98.4 F 79 20 98/80 100 08/27/17 10:00 08/27/17 10:00 08/27/17 10:00 08/27/17 10:00 08/26/17 20:14 Intake & Output 08/24/17 08/25/17 08/26/17 08/27/17 23:59 23:59 23:59 23:59 Intake Total 700 2430 2900 1200 Output Total 1950 1650 3000 400 Balance -1250 780 -100 800 Weight 132 lb 14.4 oz 127 lb 6.4 oz 127 lb 13.89 oz 125 lb 10.616 oz alert in nad Lungs clear Heart reg Ext no edema CBC, BMP 08/27/17 05:45 08/27/17 05:45 S/P hyponatremia- resolved influenza - clinically doing well euvolemic by exam Plan- agree with stopping IVF
[2017-08-27] MEDS ORDERED: METOCLOPRAMIDE HCL INJECTION 10 MG/2 ML VIAL IVPUSH PRN (15:46)
[2017-08-27] MEDS ORDERED: ACETAMINOPHEN 325 MG TABLET (FP) PO PRN (15:46)
[2017-08-27] MEDS: guaiFENesin 200 MG/10 ML 10 ML UNIT-DOSE CUPS PO PRN (16:41)
[2017-08-27] MEDS: ROSUVASTATIN CA 5 MG TABLET (FP) PO SCH (21:59)
[2017-08-28] MEDS: guaiFENesin 200 MG/10 ML 10 ML UNIT-DOSE CUPS PO PRN (01:04)
[2017-08-28] MEDS: HEPARIN NA (PORCINE) 5,000 UNITS/ML 1ML VIAL SQ SCH ×3 (06:04→21:50)
[2017-08-28] MEDS: LEVOTHYROXINE NA 50 MCG TABLET (FP) PO SCH (06:04)
[2017-08-28 08:12] LABS: ALK PHOS 61 U/L (45-117); ANION GAP 13 (8-16); BILIRUBIN,TOTAL 0.4 mg/dL (0.2-1.0); BLOOD UREA NITROGEN 5 mg/dL (7-18); CALCIUM 8.2 mg/dL (8.5-10.1); CHLORIDE 107 mmol/L (98-107); CO2 23 mmol/L (21-32); CREATININE 0.7 mg/dL (0.55-1.02); GLUCOSE,RANDOM 100 mg/dL (74-106); POTASSIUM 3.6 mmol/L (3.5-5.1); SGOT/AST 36 U/L (15-37); SGPT/ALT 30 U/L (12-78); SODIUM 143 mmol/L (136-145); TOT PROT 6.4 g/dl (6.4-8.2)
[2017-08-28] MEDS: OSELTAMIVIR PHOSPHATE 75 MG CAPSULE PO SCH ×2 (09:38→21:46)
[2017-08-28] MEDS: ASPIRIN COATED 81 MG TABLET.EC PO SCH (09:38)
[2017-08-28] MEDS: LORATADINE 10 MG TABLET PO SCH (09:38)
[2017-08-28] MEDS ORDERED: HYDROCORTISONE 20 MG TABLET PO SCH (10:00)
[2017-08-28] MEDS: HYDROCORTISONE 20 MG, HYDROCORTISONE 5 MG PO SCH ×2 (11:39→21:47)
--- NOTE | 2017-08-28 11:45 | PN ---
Progress Note (short form) - Note Progress Note: PULMONARY No fevers or chills. No shortness of breath or chest pain. Feels weak and deconditioned. Last Vital Signs Temp Pulse Resp BP Pulse Ox 98 F 70 20 128/70 98 08/28/17 08:09 08/28/17 08:09 08/28/17 08:09 08/28/17 08:09 08/27/17 21:00 Gen: NAD at rest Heart: RRR Lung: decreased breath sounds at the bases Abd: soft, nontender Ext: no edema CBC, BMP 08/27/17 05:45 08/28/17 07:27 Active Medications Acetaminophen (Tylenol -) 650 mg PO Q6H PRN PRN Reason: FEVER Aspirin (Ecotrin -) 81 mg PO DAILY [facility] Last Admin: 08/28/17 09:38 Dose: 81 mg Diphenhydramine HCl (Benadryl Injection -) 50 mg IVPUSH Q6H PRN PRN Reason: FOR ITCHING Guaifenesin (Robitussin -) 10 ml PO Q8H PRN PRN Reason: COUGH Last Admin: 08/28/17 01:04 Dose: 10 ml Heparin Sodium (Porcine) (Heparin -) 5,000 unit SQ TID [facility] Last Admin: 08/28/17 06:04 Dose: 5,000 unit Hydrocortisone (Cortef -) 20 mg PO DAILY [facility] Hydrocortisone (Cortef -) 10 mg PO DAILY@1400 [facility] Hydrocortisone 20 mg/ (Hydrocortisone 5 mg) 25 mg PO BID [facility] Stop: 08/28/17 22:01 Last Admin: 08/28/17 11:39 Dose: 25 mg Levothyroxine Sodium (Synthroid -) 50 mcg PO DAILY@0700 [facility] Last Admin: 08/28/17 06:04 Dose: 50 mcg Loratadine (Claritin -) 10 mg PO DAILY [facility] Last Admin: 08/28/17 09:38 Dose: 10 mg Metoclopramide HCl (Reglan Injection -) 10 mg IVPUSH Q6H PRN PRN Reason: NAUSEA AND/OR VOMITING Oseltamivir Phosphate (Tamiflu -) 75 mg PO BID [facility] Stop: 08/29/17 09:59 Last Admin: 08/28/17 09:38 Dose: 75 mg Rosuvastatin Calcium (Crestor -) 5 mg PO HS [facility] Last Admin: 08/27/17 21:59 Dose: 5 mg A/P Influenza A Sepsis resolved Altered Mental Status improved Hyponatremia resolved Hypothyroidism Hypercholesterolemia - complete tamiflu - hydrocortisone taper - PO as tolerated - OOB - rehab/PT
--- NOTE | 2017-08-28 13:02 | PN ---
Physical Exam: SUBJECTIVE: Patient seen and examined. She still c/o increased post nasal drip, able to get oob to bathroom, would like to walk more, overall today feeling better OBJECTIVE: Vital Signs Period Temp Pulse Resp BP Sys/Ulrich Pulse Ox Last 24 Hr 98 F-99.9 F 70-76 18-20 108-128/59-70 98 PE Neuro: alert,awake, cn 2-12intact Pulm: course bases CV: s1 s2 rrr no mrg Abd: s nt nd + bs Ext: Warm, no le edema Laboratory Results - last 24 hr 08/28/17 07:27 Sodium 143 Potassium 3.6 Chloride 107 Carbon Dioxide 23 Anion Gap 13 BUN 5 L Creatinine 0.7 Creat Clearance w eGFR > 60 Random Glucose 100 Calcium 8.2 L Total Bilirubin 0.4 D AST 36 ALT 30 Alkaline Phosphatase 61 Total Protein 6.4 Albumin 3.0 L Active Medications Generic Name Dose Route Start Last Admin Trade Name Freq PRN Reason Stop Dose Admin Acetaminophen 650 mg 08/27/17 15:46 Tylenol - PO Q6H PRN FEVER Aspirin 81 mg 08/28/17 10:00 08/28/17 09:38 Ecotrin - PO 81 mg DAILY [facility] Administration Diphenhydramine HCl 50 mg 08/27/17 15:46 Benadryl Injection - IVPUSH Q6H PRN FOR ITCHING Guaifenesin 10 ml 08/27/17 15:46 08/28/17 01:04 Robitussin - PO 10 ml Q8H PRN Administration COUGH Heparin Sodium (Porcine) 5,000 unit 08/27/17 22:00 08/28/17 06:04 Heparin - SQ 5,000 unit TID [facility] Administration Hydrocortisone 20 mg 08/29/17 10:00 Cortef - PO DAILY [facility] Hydrocortisone 10 mg 08/29/17 14:00 Cortef - PO DAILY@1400 [facility] Hydrocortisone 20 mg/ 25 mg 08/28/17 11:15 08/28/17 11:39 Hydrocortisone 5 mg PO 08/28/17 22:01 25 mg BID [facility] Administration Levothyroxine Sodium 50 mcg 08/28/17 07:00 08/28/17 06:04 Synthroid - PO 50 mcg DAILY@0700 [facility] Administration Loratadine 10 mg 08/28/17 10:00 08/28/17 09:38 Claritin - PO 10 mg DAILY [facility] Administration Metoclopramide HCl 10 mg 08/27/17 15:46 Reglan Injection - IVPUSH Q6H PRN NAUSEA AND/OR VOMITING Oseltamivir Phosphate 75 mg 08/27/17 22:00 08/28/17 09:38 Tamiflu - PO 08/29/17 09:59 75 mg BID [facility] Administration Rosuvastatin Calcium 5 mg 08/27/17 22:00 08/27/17 21:59 Crestor - PO 5 mg HS [facility] Administration Assessment: 77 year old female with pmhx of hypothyroidism after pituitary resection for pituitary adenoma 6 yrs ago, and HLD transferred from [place] with AMS and fever. Plan: 1. Influenza A - Tamiflu 75mg BID (day 5) 2. Hypothyroidism after pituitary resection for pituitary adenoma 6 yrs ago - Most recent MRI done 10/2106, reviewed radiology input w/ endocrine on head CT re: pituitary, hold off on repeat imaging at this time - Synthroid 50mcg - Continue hydrocortisone taper, 25mg BID today, Tomorrow 20mg qam, 10mg @1400, continue this dose on DC home with outpt endocrine follow up 3. HLD - Crestor 5mg HS 4. Hyponatremia - Resolved 5. Hypophosphatemia - Check AM level 6. DVT - Heparin q8 Visit type - Emergency Visit Emergency Visit: Yes ED Registration Date: 08/24/17 Care time: The patient presented to the Emergency Department on the above date and was hospitalized for further evaluation of their emergent condition. - New Patient This patient is new to me today: No - Critical Care Critical Care patient: No
[2017-08-28] MEDS: HYDROCORTISONE 20 MG TABLET PO SCH (17:16)
[2017-08-28] MEDS: HYDROCORTISONE 40 MG, HYDROCORTISONE 10 MG PO SCH (17:16)
[2017-08-28] MEDS ORDERED: guaiFENesin/CODEINE 5 ML UNIT-DOSE CUPS PO PRN (19:34)
--- NOTE | 2017-08-28 21:35 | PN ---
Progress Note (short form) - Note Progress Note: covering dr conklin seen in icu Problems 1. hyponatremia 2. influenza 3. hypothyroidism 4. HLD 5. altered mental status Active Medications Acetaminophen (Tylenol -) 650 mg PO Q6H PRN PRN Reason: FEVER Aspirin (Ecotrin -) 81 mg PO DAILY [facility] Last Admin: 08/28/17 09:38 Dose: 81 mg Diphenhydramine HCl (Benadryl Injection -) 50 mg IVPUSH Q6H PRN PRN Reason: FOR ITCHING Guaifenesin/Codeine Phosphate (Robitussin Ac -) 5 ml PO TID PRN PRN Reason: COUGH Heparin Sodium (Porcine) (Heparin -) 5,000 unit SQ TID [facility] Last Admin: 08/28/17 13:39 Dose: 5,000 unit Hydrocortisone (Cortef -) 20 mg PO DAILY [facility] Hydrocortisone (Cortef -) 10 mg PO DAILY@1400 [facility] Hydrocortisone 20 mg/ (Hydrocortisone 5 mg) 25 mg PO BID [facility] Stop: 08/28/17 22:01 Last Admin: 08/28/17 11:39 Dose: 25 mg Levothyroxine Sodium (Synthroid -) 50 mcg PO DAILY@0700 [facility] Last Admin: 08/28/17 06:04 Dose: 50 mcg Loratadine (Claritin -) 10 mg PO DAILY [facility] Last Admin: 08/28/17 09:38 Dose: 10 mg Metoclopramide HCl (Reglan Injection -) 10 mg IVPUSH Q6H PRN PRN Reason: NAUSEA AND/OR VOMITING Oseltamivir Phosphate (Tamiflu -) 75 mg PO BID [facility] Stop: 08/29/17 09:59 Last Admin: 08/28/17 09:38 Dose: 75 mg Rosuvastatin Calcium (Crestor -) 5 mg PO [facility] Last Admin: 08/27/17 21:59 Dose: 5 mg Last Vital Signs Temp Pulse Resp BP Pulse Ox 97.8 F 72 20 135/75 98 08/28/17 17:12 08/28/17 17:12 08/28/17 17:12 08/28/17 17:12 08/27/17 21:00 alert in nad Lungs clear Heart reg Ext no edema CBC, BMP 08/27/17 05:45 08/28/17 07:27 S/P hyponatremia- resolved influenza - clinically doing well euvolemic by exam Plan- agree with stopping IVF will sigh noff
[2017-08-28] MEDS: ROSUVASTATIN CA 5 MG TABLET (FP) PO SCH (21:57)
[2017-08-29] MEDS: HEPARIN NA (PORCINE) 5,000 UNITS/ML 1ML VIAL SQ SCH (05:45)
[2017-08-29] MEDS: LEVOTHYROXINE NA 50 MCG TABLET (FP) PO SCH (06:00)
[2017-08-29 07:50] LABS: CHLORIDE 108 mmol/L (98-107); POTASSIUM 3.4 mmol/L (3.5-5.1); SODIUM 145 mmol/L (136-145)
[2017-08-29 07:54] LABS: ANION GAP 11 (8-16); BLOOD UREA NITROGEN 6 mg/dL (7-18); CALCIUM 8.2 mg/dL (8.5-10.1); CO2 26 mmol/L (21-32); CREATININE 0.7 mg/dL (0.55-1.02); GLUCOSE,RANDOM 85 mg/dL (74-106)
[2017-08-29 09:39] VITALS: BP 145/86; PULSE 72; TEMP 98.2
[2017-08-29] MEDS ORDERED: PT OWN MED DRAWER 7, Y5N ONE (09:41)
[2017-08-29] MEDS: LORATADINE 10 MG TABLET PO SCH (09:49)
[2017-08-29] MEDS: ASPIRIN COATED 81 MG TABLET.EC PO SCH (09:49)
[2017-08-29] MEDS ORDERED: HYDROCORTISONE 20 MG TABLET PO SCH (10:00)
--- NOTE | 2017-08-29 10:24 | PN ---
Progress Note (short form) - Note Progress Note: PULMONARY Feels better today, stronger, able to ambulate. No fevers or chills. No shortness of breath or chest pain. Wants to go home. Last Vital Signs Temp Pulse Resp BP Pulse Ox 98.2 F 72 20 145/86 98 08/29/17 09:38 08/29/17 09:38 08/29/17 09:38 08/29/17 09:38 08/27/17 21:00 Gen: NAD at rest Heart: RRR Lung: decreased breath sounds at the bases Abd: soft, nontender Ext: no edema CBC, BMP 08/27/17 05:45 08/29/17 06:15 Active Medications Acetaminophen (Tylenol -) 650 mg PO Q6H PRN PRN Reason: FEVER Aspirin (Ecotrin -) 81 mg PO DAILY [facility] Last Admin: 08/29/17 09:49 Dose: 81 mg Diphenhydramine HCl (Benadryl Injection -) 50 mg IVPUSH Q6H PRN PRN Reason: FOR ITCHING Guaifenesin/Codeine Phosphate (Robitussin Ac -) 5 ml PO TID PRN PRN Reason: COUGH Last Admin: 08/28/17 21:50 Dose: 5 ml Heparin Sodium (Porcine) (Heparin -) 5,000 unit SQ TID [facility] Last Admin: 08/29/17 05:45 Dose: 5,000 unit Hydrocortisone (Cortef -) 20 mg PO DAILY [facility] Hydrocortisone (Cortef -) 10 mg PO DAILY@1400 [facility] Levothyroxine Sodium (Synthroid -) 50 mcg PO DAILY@0700 [facility] Last Admin: 08/29/17 06:00 Dose: 50 mcg Loratadine (Claritin -) 10 mg PO DAILY [facility] Last Admin: 08/29/17 09:49 Dose: 10 mg Metoclopramide HCl (Reglan Injection -) 10 mg IVPUSH Q6H PRN PRN Reason: NAUSEA AND/OR VOMITING Potassium Chloride (K-Dur -) 40 meq PO ONCE ONE Stop: 08/29/17 10:16 Rosuvastatin Calcium (Crestor -) 5 mg PO [facility] Last Admin: 08/28/17 21:57 Dose: 5 mg A/P Influenza A Sepsis resolved Altered Mental Status improved Hyponatremia resolved Hypothyroidism Hypercholesterolemia - completed tamiflu - hydrocortisone taper - PO as tolerated - OOB - can d/c home from pulmonary standpoint, she will f/u with her PMD and professor of genetics for repeat BMP to f/u Na level
[2017-08-29] MEDS ORDERED: POTASSIUM CHLORIDE TABS 20 MEQ TABLET.ER (FP) PO ONE (10:45)
--- NOTE | 2017-08-29 11:29 | DS ---
Physical Exam: SUBJECTIVE: Patient seen and examined at the bedside. For discharge today. OBJECTIVE: influenza encephalopathy in the setting of AMS with influenza A, resolved for discharge home with PCP and endcrinology followup Vital Signs Period Temp Pulse Resp BP Sys/Ulrich Pulse Ox Last 24 Hr 97.8 F-98.6 F 62-75 18-20 109-145/59-86 PHYSICAL EXAM GENERAL: The patient is awake, alert, and fully oriented, in no acute distress. HEAD: Normal with no signs of trauma. EYES: PERRL, extraocular movements intact, sclera anicteric, conjunctiva clear. ENT: Ears normal, nares patent, oropharynx clear without exudates, moist mucous membranes. NECK: Trachea midline, full range of motion, supple. LUNGS: Breath sounds equal, clear to auscultation bilaterally, no wheezes, no crackles, no accessory muscle use. HEART: Regular rate and rhythm, ABDOMEN: Soft, nontender, nondistended, normoactive bowel sounds, no guarding, no rebound, no hepatosplenomegaly, no masses. EXTREMITIES: 2+ pulses, warm, well-perfused, no edema. NEUROLOGICAL: Normal speech, gait steady PSYCH: Normal mood, normal affect. SKIN: Warm, dry, normal turgor, no rashes or lesions noted. LABS Laboratory Results - last 24 hr 08/29/17 06:15 Sodium 145 Potassium 3.4 L Chloride 108 H Carbon Dioxide 26 Anion Gap 11 BUN 6 L Creatinine 0.7 Random Glucose 85 Calcium 8.2 L HOSPITAL COURSE: Date of Admission:08/24/17 Date of Discharge: 08/29/17 Patient is a 77 year old female with a significant past medical history of hypothyroidism after pituitary resection for pituitary adenoma and HLD. She was admitted on 08/24/2017 for aterered mental status and fever. ID: Influenza encephalopathy in the setting of AMS with influenza A, resolved Completed tamiflu Mental status back to baseline, alert and oriented x 3 for discharge home with PCP and endocrinology followup Endocrine: Hypothyroidism in the setting of pituitary resection for pituitary adenoma On Hydrocortisone 20mg in the a.m., Hydrocortisone 10mg @1400 Endocrine follow up outpatient Electrolyte Imbalance: Hyponatremia, resolved Hypokalemia, repleted Hypophosphatemia, Repleted Repeat BMP outpatient with PCP disposition: Discharge home with PCP and Endocrinology follow up. full code. Minutes to complete discharge: 60 Discharge Summary Reason For Visit: ALTERED MENTAL STATUS,FEVER,HYPONATREMIA, Current Active Problems Altered mental status (Acute) Fever (Acute) Hyponatremia (Acute) Condition: Stable - Instructions Diet, Activity, Other Instructions: Mrs. Nunez: Please continue the medications as prescribed. Please see your chronic care nurse within 1 week for follow up and adjust dose as necessary . Please see your primary care physician for repeat lab work (check for your electrolytes: BMP panel - sodium levels, magnesium and potassium) within 1 week after discharge (Dr Mali Parks). new medications: - Hydrocortisone 20mg daily at 8am (called into your pharmacy) - Hydrocortisone 10mg daily at 2pm (called into your pharmacy), this dose may be adjusted by your chronic care nurse - Please continue taking the Synthroid as you were taking at home. Please call us back with any questions that you may have. Thank you for allowing us to care for you. [phone] [facility] Referrals: Crystal Parks MD [Non Staff, Medical] - 1 Week Disposition: HOME - Home Medications Comprehensive Discharge Medication List: Ambulatory Orders Aspirin [Adult Aspirin Regimen] 81 mg PO DAILY 08/24/17 Cholecalciferol (Vitamin D3) [Vitamin D-400] 400 unit PO DAILY 08/24/17 Diazepam [Valium] 2 mg PO TID 08/24/17 Lutein 6 mg PO DAILY 08/24/17 Magnesium 250 mg PO DAILY 08/24/17 Rosuvastatin Calcium [Crestor] 5 mg PO HS 08/24/17 Levothyroxine [Synthroid -] 50 mcg PO DAILY 08/25/17 Hydrocortisone [Cortef -] 10 mg PO DAILY@1400 #30 tablet 08/29/17 This patient is new to me today: Yes Date on this admission: 08/29/17 Emergency Visit: No Critical Care patient: No - Discharge Referral Referred to [facility] Med P.C[facility] No
--- NOTE | 2017-08-29 12:00 | PN ---
Progress Note (short form) - Note Progress Note: Feels good Denies any complaints Vital Signs Period Temp Pulse Resp BP Sys/Ulrich Pulse Ox Last 24 Hr 97.8 F-98.6 F 62-75 18-20 109-145/59-86 PE: AOx3 Neck: Supple, No JVD HEENT: PERRL, EOMI Lungs: CTA Abd: Benign CVS: S1S2 Ext: No edema Neuro: No focal deficit CMP Sodium 145 mmol/L (136-145) 08/29/17 06:15 Potassium 3.4 mmol/L (3.5-5.1) L 08/29/17 06:15 Chloride 108 mmol/L (98-107) H 08/29/17 06:15 Carbon Dioxide 26 mmol/L (21-32) 08/29/17 06:15 Anion Gap 11 (8-16) 08/29/17 06:15 BUN 6 mg/dL (7-18) L 08/29/17 06:15 Creatinine 0.7 mg/dL (0.55-1.02) 08/29/17 06:15 Creat Clearance w eGFR > 60 (>60) 08/28/17 07:27 Random Glucose 85 mg/dL (74-106) 08/29/17 06:15 Serum Osmolality 259 mosm/kg (278-305) L 08/24/17 07:20 Lactic Acid 1.2 mmol/L (0.0-2.0) 08/24/17 07:20 Calcium 8.2 mg/dL (8.5-10.1) L 08/29/17 06:15 Phosphorus 2.2 mg/dL (2.5-4.9) L 08/27/17 05:45 Magnesium 2.2 mg/dL (1.8-2.4) 08/27/17 05:45 Total Bilirubin 0.4 mg/dL (0.2-1.0) D 08/28/17 07:27 AST 36 U/L (15-37) 08/28/17 07:27 ALT 30 U/L (12-78) 08/28/17 07:27 Alkaline Phosphatase 61 U/L (45-117) 08/28/17 07:27 Creatine Kinase 116 IU/L (26-192) 08/23/17 18:56 Troponin I 0.00 ng/ml (0.00-0.05) 08/23/17 18:56 Total Protein 6.4 g/dl (6.4-8.2) 08/28/17 07:27 Albumin 3.0 g/dl (3.4-5.0) L 08/28/17 07:27 Triglycerides 27 mg/dL (35-160) L 08/26/17 05:55 Cholesterol 52 mg/dL (50-200) 08/26/17 05:55 Total LDL Cholesterol 12 mg/dL (5-100) 08/26/17 05:55 HDL Cholesterol 37 mg/dL (40-60) L 08/26/17 05:55 Lipase 235 U/L (73-393) 08/24/17 07:20 TSH 0.04 uIU/ml (0.358-3.74) L 08/23/17 18:56 Free T4 1.30 ng/dl (0.76-1.46) 08/24/17 07:20 Cortisol AM Sample 5.5 ug/dL (.) 08/26/17 05:55 Current Medications Generic Name Dose Route Start Last Admin Trade Name Freq PRN Reason Stop Dose Admin Acetaminophen 650 mg 08/27/17 15:46 Tylenol - PO Q6H PRN FEVER Aspirin 81 mg 08/28/17 10:00 08/29/17 09:49 Ecotrin - PO 81 mg DAILY DUSTIN Administration Diphenhydramine HCl 50 mg 08/27/17 15:46 Benadryl Injection - IVPUSH Q6H PRN FOR ITCHING Guaifenesin/Codeine Phosphate 5 ml 08/28/17 19:34 08/28/17 21:50 Robitussin Ac - PO 5 ml TID PRN Administration COUGH Heparin Sodium (Porcine) 5,000 unit 08/27/17 22:00 08/29/17 05:45 Heparin - SQ 5,000 unit TID DUSTIN Administration Hydrocortisone 20 mg 08/29/17 10:00 08/29/17 11:00 Cortef - PO 20 mg DAILY DUSTIN Administration Hydrocortisone 10 mg 08/29/17 14:00 Cortef - PO DAILY@1400 DUSTIN Levothyroxine Sodium 50 mcg 08/28/17 07:00 08/29/17 06:00 Synthroid - PO 50 mcg DAILY@0700 DUSTIN Administration Loratadine 10 mg 08/28/17 10:00 08/29/17 09:49 Claritin - PO 10 mg DAILY DUSTIN Administration Metoclopramide HCl 10 mg 08/27/17 15:46 Reglan Injection - IVPUSH Q6H PRN NAUSEA AND/OR VOMITING Rosuvastatin Calcium 5 mg 08/27/17 22:00 08/28/17 21:57 Crestor - PO 5 mg HS DUSTIN Administration AMS: resolved, Hyponatremia: resolved 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 As per neurosurgery consult note in pt's phone, as of December 2016, the size of the tumor was decreasing. However actual size was not mentioned. Had recommended a Pituitary MRI to r/o any bleeding into the tumor which pt refused. Discussed CT Head findings with radiology who felt that the pituitary looked unremarkable and repeat CT of pituitary won't add much. Hydrocortisone 20mg in morning and 10 at 2 p.m. F/U with her PCP and Endo and adjust dose as necessary On LT4 50mcg QD 3days per week 75 4 days per week as per pt. Pt to do the same on discharge
[2017-08-29] MEDS ORDERED: HYDROCORTISONE 10 MG TABLET PO SCH (14:00)
== END 2017-08-29 12:49 | disposition home or self-care (01) | DRG 871 ==
LOC: FER 18:17 → JICU 08-24 00:39 → J8W 08-27 15:21
PROVIDERS: ADMIT Internal Medicine; ATTEND Nurse Practitioner Family
PROC: 009U3ZZ Drainage of Spinal Canal, Percutaneous Approach (ICD-10-PCS; principal; 2017-08-23)
DX: A41.9 Sepsis, unspecified organism (principal); G93.41 Metabolic encephalopathy; E87.1 Hypo-osmolality and hyponatremia; E78.5 Hyperlipidemia, unspecified; M79.1 Myalgia; E03.9 Hypothyroidism, unspecified; J11.1 Influenza due to unidentified influenza virus with other respiratory manifestations; E83.42 Hypomagnesemia; Z87.891 Personal history of nicotine dependence; E87.6 Hypokalemia; E83.39 Other disorders of phosphorus metabolism; R50.9 Fever, unspecified
CPT/HCPCS: 36415; 70450-TC; 71045-TC-FY; 80048; 80053; 80061; 80307; 81003; 81015; 82436; 82533; 82550; 82570; 82803; 82945; 83605; 83690; 83721; 83735; 83930; 83935; 84100; 84133; 84157; 84300; 84439; 84443; 84484; 85025; 85027; 85610; 85730; 86850; 86900; 86901; 87040; 87070; 87086; 87205; 87804; 87899; 89050; 93005; 97116-GP; 97161-GP; 99283-25; J1644

== ENCOUNTER 2019-01-03 11:58 | Inpatient (IN) | payer OTHER, BC ==
--- NOTE | 2019-01-03 12:04 | PDOC ---
History of Present Illness - General Chief Complaint: Headache Stated Complaint: HEADACHE,STOMACH PAIN Time Seen by Provider: 01/03/19 12:01 - History of Present Illness Initial Comments: 01/03/19 15:36 Chief complaint: Epigastric pain History of present illness: Patient awoke this morning with nausea and epigastric pain. She tried to make herself throw up, feeling she would be more comfortable, but was unsuccessful. No lower abdominal pain or diarrhea. No radiation of the pain to the jaw, neck, or arms. No diaphoresis or shortness of breath. No lightheadedness or dizziness, although there is headache, diffuse, [id number]. Review of systems: As noted above. Otherwise reviewed and negative Past medical history: Similar episode 2018 diagnosis flu but with accompanying hyponatremia. Hypothyroidism. Elevated cholesterol. Anxiety. Social/family history former smoker, quit in 1997, denies alcohol or drugs. , is healthy, stable home, denies anxiety or depression. Family history: Reviewed and significant for a mother with PA at age 87 and a brother with diabetes. Physical exam: Alert and oriented well-developed well-nourished complaining of epigastric pain which appears to be mild to moderate. Cooperative. Febrile, vital signs stable Head atraumatic. PERRLA 4 mm, fundi benign with sharp disc margins and good central venous pulsations. EOMs full without diplopia. Visual gonzalez intact to confrontation ENT clear. Mucous membranes moist Neck supple without bruit mass or nodes Lungs clear with full breath sounds bilaterally. No wheezes rales or rhonchi CV S1 and S2 normal without murmur or gallop pulses full and symmetric no JVD or edema no bruits Abdomen nondistended. Bowel sounds normal. Soft without masses tenderness organomegaly. Pain is not reproducible with palpation Extremities no CCE Skin clear, no rash, adequate turgor Neurological C2 to 12 intact. Strength is symmetric. No focal sensory or motor deficits. Gait stable and nontender. Impression: Epigastric pain without tenderness to palpation, with nausea, no vomiting or diarrhea, possibilities include gastroenteritis, pancreatitis, uremia, electrolyte imbalance. Less likely but possible ileus a cardiac etiology , atypical chest pain, occult coronary syndrome. Plan: EKG and enzymes, CBC and chemistries, lipase, symptomatic treatment and observation. Past History - Past Medical History Allergies/Adverse Reactions: Allergies Allergy/AdvReac Type Severity Reaction Status Date / Time No Known Allergies Allergy Verified 01/03/19 18:12 Home Medications: Ambulatory Orders Aspirin [Adult Aspirin Regimen] 81 mg PO DAILY 08/24/17 Cholecalciferol (Vitamin D3) [Vitamin D-400] 400 unit PO DAILY 08/24/17 Diazepam [Valium] 2 mg PO ASDIR 08/24/17 Lutein 6 mg PO DAILY 08/24/17 Magnesium 250 mg PO DAILY 08/24/17 Rosuvastatin Calcium [Crestor] 5 mg PO HS 08/24/17 Levothyroxine [Synthroid -] 50 mcg PO ASDIR 08/25/17 Acetaminophen [Tylenol -] 500 mg PO ONCE 01/03/19 Aspirin/Acetaminophen/Caffeine [Excedrin Extra Strength Caplet] 1 each PO ONCE 01/03/19 Desloratadine 5 mg PO DAILY 01/03/19 Diphenhydramine HCl [Benadryl -] 25 mg PO ONCE 01/03/19 Fluticasone Prop 0.05% Nasal [Flonase -] 1 - 2 spray NS DAILY 01/03/19 Guaifenesin/Dextromethorphan [Delsym Cough+Chest Cngst Dm Lq] 180 ml PO PRN PRN 01/03/19 Hydrocortisone [Cortef -] 2.5 mg PO DAILY@1400 01/03/19 Hydrocortisone [Cortef -] 5 mg PO DAILY 01/03/19 ED Treatment Course - LABORATORY CBC & Chemistry Diagram: 01/03/19 12:04 01/03/19 16:35 Medical Decision Making - Medical Decision Making 01/03/19 16:43 Serum sodium is 122 and chloride is 91. Potassium and CO2 are normal. BUN and creatinine are normal. The patient denies excessive water intake. EKG shows normal sinus rhythm. Normal axes and intervals. Nonspecific ST-T wave changes in the anterior leads, but these were present and even more prominent on prior EKG dated 08/23/2017. No new ST or T-wave changes. No ST elevations. Chest x-ray reportedly done at urgent care center yesterday was normal Cardiac enzymes show a CPK of 584, but a normal index, and negative troponin. We 'll repeat after 4 hours, as well as recheck sodium and chloride after hydration. 01/03/19 16:46 Abdominal pain is much improved. Nausea has resolved. No vomiting or diarrhea. Headache is still present but also much improved. Patient resting comfortably 01/03/19 18:38 Repeat labs show sodium 121, chloride 95, troponin less than 0.03. CK remains elevated with a normal index Hydrocortisone administered for possible adrenal insufficiency. Admitted to hospitalist service for further observation and treatment *DC/Admit/Observation/Transfer Diagnosis at time of Disposition: Hyponatremia - Discharge Dispostion Condition at time of disposition: Fair Decision to Admit order: Yes - Referrals - Patient Instructions - Post Discharge Activity
[2019-01-03] MEDS ORDERED: FAMOTIDINE 20 MG/50 ML IVPB 20 MG/50 ML MG IVPB ONE ×2 (12:40→12:55)
[2019-01-03] MEDS ORDERED: NITROGLYCERIN SUBLINGUAL 1/150 0.4 MG TAB SL ONE (12:41)
[2019-01-03] MEDS ORDERED: ASPIRIN 81 MG CHEWABLE TABLETS PO ONE (12:42)
[2019-01-03] MEDS ORDERED: NITROGLYCERIN SUBLINGUAL 1/150 0.4 MG TAB ONE (12:54)
[2019-01-03] MEDS ORDERED: ASPIRIN 81 MG CHEWABLE TABLETS ONE (12:55)
[2019-01-03 13:20] LABS: BASO % 1.2 % (0-2.0); HEMATOCRIT 38.4 % (32.4-45.2); HEMOGLOBIN 12.7 GM/dl (10.7-15.3); LYMPH % 31.6 % (8-40); MCH 29.9 pg (25.7-33.7); MCHC 33.1 g/dl (32.0-36.0); MEAN CELL VOLUME 90.3 fl (80-96); MEAN PLT VOLUME 10.8 fl (7.5-11.1); MONO % 10.8 % (3.8-10.2); NEUT % 54.4 % (42.8-82.8); PLATELET COUNT 193 K/MM3 (134-434); RBC 4.25 M/mm3 (3.60-5.2); RDW 12.4 % (11.6-15.6); WHITE BLOOD COUNT 10.5 K/mm3 (4.0-10.8)
[2019-01-03] MEDS ORDERED: ACETAMINOPHEN 1000 MG/100 ML VIAL (NON FORMULARY) IVPB ONE (13:21)
[2019-01-03] MEDS ORDERED: ACETAMINOPHEN INJECTION 100 ML IVPB ONE (13:22)
[2019-01-03 13:31] LABS: ALBUMIN 3.7 g/dl (3.4-5.0); BILIRUBIN,TOTAL 1.1 mg/dl (0.2-1); CALCIUM 8.8 mg/dl (8.5-10); CREATININE 0.7 mg/dl (0.55-1.3); POTASSIUM 3.8 mmol/L (3.5-5.1); TOT PROT 6.5 g/dl (6.4-8.2)
[2019-01-03] MEDS ORDERED: ONDANSETRON 4 MG/2 ML VIAL ONE (13:41)
[2019-01-03] MEDS ORDERED: KETOROLAC TROMETHAMINE 30 MG/1 ML VIAL IVPUSH ONE (14:38)
[2019-01-03] MEDS ORDERED: KETOROLAC TROMETHAMINE 15 MG/ML VIAL ONE (14:41)
[2019-01-03] MEDS ORDERED: SODIUM CHLORIDE 1,000 ML IV STA (14:47)
--- NOTE | 2019-01-03 14:49 | EKG ---
Test Reason : Blood Pressure : / mmHG Vent. Rate : 061 BPM Atrial Rate : 061 BPM P-R Int : 118 ms QRS Dur : 086 ms QT Int : 440 ms P-R-T Axes : 029 009 037 degrees QTc Int : 442 ms NORMAL SINUS RHYTHM NONSPECIFIC ST AND T WAVE ABNORMALITY ABNORMAL ECG NO PREVIOUS ECGS AVAILABLE Confirmed by NAIN MCKINLEY MD ([id number]) on 01/03/2019 2:49:04 PM Referred By: MD GARCIA Confirmed By:NAIN MCKINLEY MD
[2019-01-03] MEDS ORDERED: SODIUM CHLORIDE 1,000 ML IV SCH ×2 (15:00→18:30)
[2019-01-03] MEDS ORDERED: PANTOPRAZOLE SODIUM 40 MG in SODIUM CHLORIDE 100 ML IVPB ONE (15:54)
[2019-01-03] MEDS ORDERED: PANTOPRAZOLE SODIUM 40 MG VIAL ONE (16:21)
[2019-01-03 17:00] LABS: CALCIUM 7.6 mg/dl (8.5-10); CREATININE 0.7 mg/dl (0.55-1.3); POTASSIUM 3.8 mmol/L (3.5-5.1)
--- NOTE | 2019-01-03 18:16 | HP ---
CHIEF COMPLAINT: nausea, vomiting PCP: HISTORY OF PRESENT ILLNESS: 77 yo f w/ PMH HLD and Pituitary adenoma (s/p resection) awoke this morning with nausea and epigastric pain , generalized weakness. She has felt week for for at least 2 days. Tried to vomit but couldn't. 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 ER course was notable for: (1) ekg (2) IV fluid (3) Recent Travel: no PAST MEDICAL HISTORY: hypothyroidism, pituitary adenoma removal PAST SURGICAL HISTORY: pituitary adenoma removal ~8 years ago, hypothyroidism Social History: Smoking: no Alcohol:no Drugs: no Family History: Allergies No Known Allergies Allergy (Verified 01/03/19 18:12) HOME MEDICATIONS: Home Medications Medication Instructions Recorded Aspirin [Adult Aspirin Regimen] 81 mg PO DAILY 08/24/17 Cholecalciferol (Vitamin D3) 400 unit PO DAILY 08/24/17 [Vitamin D-400] Diazepam [Valium] 2 mg PO ASDIR 08/24/17 Lutein 6 mg PO DAILY 08/24/17 Magnesium 250 mg PO DAILY 08/24/17 Rosuvastatin Calcium [Crestor] 5 mg PO HS 08/24/17 Levothyroxine [Synthroid -] 50 mcg PO ASDIR 08/25/17 Acetaminophen [Tylenol -] 500 mg PO ONCE 01/03/19 Aspirin/Acetaminophen/Caffeine 1 each PO ONCE 01/03/19 [Excedrin Extra Strength Caplet] Desloratadine 5 mg PO DAILY 01/03/19 Diphenhydramine HCl [Benadryl -] 25 mg PO ONCE 01/03/19 Fluticasone Prop 0.05% Nasal 1 - 2 spray NS DAILY 01/03/19 [Flonase -] Guaifenesin/Dextromethorphan 180 ml PO PRN PRN 01/03/19 [Delsym Cough+Chest Cngst Dm Lq] Hydrocortisone [Cortef -] 2.5 mg PO DAILY@1400 01/03/19 Hydrocortisone [Cortef -] 5 mg PO DAILY 01/03/19 REVIEW OF SYSTEMS CONSTITUTIONAL: Absent: fever, chills, diaphoresis, loss of appetite, weight change present-generalized weakness, malaise, HEENT: Absent: rhinorrhea, nasal congestion, throat pain, throat swelling, difficulty swallowing, mouth swelling, ear pain, eye pain, visual changes CARDIOVASCULAR: Absent: chest pain, syncope, palpitations, irregular heart rate, lightheadedness , peripheral edema RESPIRATORY: Absent: cough, shortness of breath, dyspnea with exertion, orthopnea, wheezing, stridor, hemoptysis GASTROINTESTINAL: Absent: abdominal pain, abdominal distension diarrhea, constipation, melena, hematochezia present- nausea, GENITOURINARY: Absent: dysuria, frequency, urgency, hesitancy, hematuria, flank pain, genital pain MUSCULOSKELETAL: Absent: myalgia, arthralgia, joint swelling, back pain, neck pain SKIN: Absent: rash, itching, pallor HEMATOLOGIC/IMMUNOLOGIC: Absent: easy bleeding, easy bruising, lymphadenopathy, frequent infections ENDOCRINE: Absent: unexplained weight gain, unexplained weight loss, heat intolerance, cold intolerance NEUROLOGIC: Absent: headache, focal weakness or paresthesias, dizziness, unsteady gait, seizure, mental status changes, bladder or bowel incontinence PSYCHIATRIC: Absent: anxiety, depression, suicidal or homicidal ideation, hallucinations. PHYSICAL EXAMINATION Vital Signs - 24 hr 01/03/19 01/03/19 01/03/19 12:00 13:45 14:39 Temperature 98.1 F Pulse Rate 73 Pulse Rate [ 89 59 L Left] Respiratory 20 20 20 Rate Blood Pressure 115/75 Blood Pressure 148/87 117/63 [Right Arm] O2 Sat by Pulse 100 97 99 Oximetry (%) 01/03/19 15:28 Temperature 98.1 F Pulse Rate Pulse Rate [ 69 Left] Respiratory 20 Rate Blood Pressure Blood Pressure 103/69 [Right Arm] O2 Sat by Pulse 99 Oximetry (%) GENERAL: Awake, alert, and fully oriented, in no acute distress. HEAD: Normal with no signs of trauma. EYES: Pupils equal, round and reactive to light, extraocular movements intact, sclera anicteric, conjunctiva clear. No lid lag. EARS, NOSE, THROAT: Ears normal, nares patent, oropharynx clear without exudates. Moist mucous membranes. NECK: Normal range of motion, supple without lymphadenopathy, JVD, or masses. LUNGS: Breath sounds equal, clear to auscultation bilaterally. No wheezes, and no crackles. No accessory muscle use. HEART: Regular rate and rhythm, normal S1 and S2 without murmur, rub or gallop. ABDOMEN: Soft, nontender, not distended, normoactive bowel sounds, no guarding, no rebound, no masses. MUSCULOSKELETAL: Normal range of motion at all joints. No bony deformities or tenderness. No CVA tenderness. UPPER EXTREMITIES: 2+ pulses, warm, well-perfused. No cyanosis. No clubbing. No peripheral edema. LOWER EXTREMITIES: 2+ pulses, warm, well-perfused. No calf tenderness. No peripheral edema. NEUROLOGICAL: Cranial nerves II-XII intact. Normal speech. Normal gait. PSYCHIATRIC: Cooperative. Good eye contact. Appropriate mood and affect. SKIN: Warm, dry, normal turgor, no rashes or lesions noted, normal capillary refill. Laboratory Results - last 24 hr 01/03/19 01/03/19 01/03/19 12:04 12:04 12:04 WBC 10.5 RBC 4.25 Hgb 12.7 Hct 38.4 MCV 90.3 MCH 29.9 MCHC 33.1 RDW 12.4 Plt Count 193 MPV 10.8 Absolute Neuts (auto) 5.8 Neutrophils % 54.4 Lymphocytes % 31.6 Monocytes % 10.8 H Eosinophils % 2.0 Basophils % 1.2 Sodium 122 L Potassium 3.8 Chloride 91 L Carbon Dioxide 25 Anion Gap 6 L BUN 9.0 Creatinine 0.7 Est GFR (CKD-EPI)AfAm 97.54 Est GFR (CKD-EPI)NonAf 84.16 Random Glucose 90 Calcium 8.8 Total Bilirubin 1.1 H AST 29 ALT 15 Alkaline Phosphatase 66 Creatine Kinase 584 H Creatine Kinase Index 1.4 CK-MB (CK-2) 8.5 H Troponin I < 0.03 Total Protein 6.5 Albumin 3.7 Lipase 146 01/03/19 01/03/19 01/03/19 16:35 16:35 16:35 WBC RBC Hgb Hct MCV MCH MCHC RDW Plt Count MPV Absolute Neuts (auto) Neutrophils % Lymphocytes % Monocytes % Eosinophils % Basophils % Sodium 121 L Potassium 3.8 Chloride 95 L Carbon Dioxide 23 Anion Gap 3 L BUN 8.0 Creatinine 0.7 Est GFR (CKD-EPI)AfAm 97.54 Est GFR (CKD-EPI)NonAf 84.16 Random Glucose 83 Calcium 7.6 L Total Bilirubin AST ALT Alkaline Phosphatase Creatine Kinase 524 H Creatine Kinase Index 1.4 CK-MB (CK-2) 7.4 H Troponin I < 0.03 Total Protein Albumin Lipase imaging reviewed ASSESSMENT/PLAN: #Acute on chronic hyponatremia - differential diagnosis includes Na depletion from vomiting, SIADH, adrenal insufficiency (especially including hypotension, and pituitary apoplexy s/p transphenoidal resection). Should r/o hypothyroidism induced hyponatremia. No history of diuretic use. 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 - New Patient This patient is new to me today: Yes Date on this admission: 01/03/19 - Critical Care Critical Care patient: No
[2019-01-03] MEDS ORDERED: HYDROCORTISONE SOD SUCCINATE 100 MG/2 ML VIAL IVPB ONE (18:20)
[2019-01-03] MEDS ORDERED: ONDANSETRON 4 MG/2 ML VIAL IVPUSH PRN (18:25)
[2019-01-03] MEDS ORDERED: diazePAM 2 MG TABLET PO SCH (18:30)
[2019-01-03] MEDS ORDERED: LEVOTHYROXINE NA 50 MCG TABLET (FP) PO SCH (18:30)
[2019-01-03 23:38] VITALS: BMI 25.2
[2019-01-03] MEDS: ROSUVASTATIN CA 5 MG TABLET (FP) PO SCH (23:39)
[2019-01-04] MEDS: HYDROCORTISONE SOD SUCCINATE 100 MG/2 ML VIAL IVPB SCH ×2 (00:24→09:30)
[2019-01-04 02:16] LABS: BLOOD UREA NITROGEN 5.7 mg/dL (7-18); CALCIUM 7.4 mg/dL (8.5-10.1); CREATININE 0.6 mg/dL (0.55-1.3); POTASSIUM 3.7 mmol/L (3.5-5.1)
[2019-01-04] MEDS: LEVOTHYROXINE NA 50 MCG TABLET (FP) PO SCH (06:05)
[2019-01-04 08:05] LABS: HEMATOCRIT 38.4 % (32.4-45.2); MCH 30.6 pg (25.7-33.7); MCHC 33.8 g/dl (32.0-36.0); MEAN CELL VOLUME 90.5 fl (80-96); MEAN PLT VOLUME 11.7 fl (7.5-11.1); PLATELET COUNT 198 K/MM3 (134-434); RBC 4.24 M/mm3 (3.60-5.2); RDW 12.1 % (11.6-15.6)
[2019-01-04 08:15] LABS: POTASSIUM 3.7 mmol/L (3.5-5.1)
[2019-01-04 08:20] LABS: CALCIUM 8.7 mg/dl (8.5-10); CREATININE 0.7 mg/dl (0.55-1.3); POTASSIUM 3.8 mmol/L (3.5-5.1)
[2019-01-04] MEDS: ASPIRIN COATED 81 MG TABLET.EC PO SCH (09:29)
[2019-01-04] MEDS: LORATADINE 10 MG TABLET PO SCH (09:29)
[2019-01-04] MEDS ORDERED: CHOLECALCIFEROL (VIT D3) 400 UNIT (10 MCG) TABLET PO SCH (10:00)
[2019-01-04] MEDS ORDERED: FLUDROCORTISONE ACETATE 0.1 MG TABLET (FP) PO SCH (10:00)
[2019-01-04] MEDS ORDERED: PANTOPRAZOLE 40 MG TABLET (FP) PO SCH (10:00)
[2019-01-04] MEDS ORDERED: PATIENT'S OWN MEDICATION (NON-FORMULARY) (Magnesium [Magnesium] 250 MG) PO SCH (10:00)
[2019-01-04] MEDS ORDERED: HYDROCORTISONE 5 MG TABLET PO SCH ×2 (10:00→14:00)
--- NOTE | 2019-01-04 10:54 | CONSULT ---
Consult Consult Specialty:: Nephrology Reason for Consultation:: hyponatremia - History of Present Illness Chief Complaint: nausea and epigastric pain History of Present Illness: Pt is a 78 year old female with pmhx of hyponatremia, HLD, seasonal allergies and pituitary adenoma who presented with nausea and abdominal pain. She was found to be hyponatremic and I was called to evaluate her. She denies shortness of breath or lower ext edema. She denies headache. She says she has chronic vertigo. She denies excess water intake and drinks about 1 to 1.5 liters per day. Her appetite has not been great over the last few days. She denies weight loss. She did not follow with me after her last hospitalization but says that her sodium levels have been normal. She denies hematuria or dysuria. - History Source History Provided By: Patient, Medical Record - Past Medical History [employer]: Yes: Other (pituitary adenoma) Cardio/Vascular: Yes: Hyperlipdemia Renal/: Yes: Other (hyponatremia) Endocrine: Yes: Hypothyroidism, Other (Adrenal Insufficiency, Pituitary Adenoma s/p partial resection) - Alcohol/Substance Use Hx Alcohol Use: No History of Substance Use: reports: None - Smoking History Smoking history: Never smoked Have you smoked in the past 12 months: No - Social History Usual Living Arrangement: With Spouse Home Medications - Allergies Allergies/Adverse Reactions: Allergies Allergy/AdvReac Type Severity Reaction Status Date / Time No Known Allergies Allergy Verified 01/03/19 18:12 - Home Medications Home Medications: Ambulatory Orders Aspirin [Adult Aspirin Regimen] 81 mg PO DAILY 08/24/17 Cholecalciferol (Vitamin D3) [Vitamin D-400] 400 unit PO DAILY 08/24/17 Diazepam [Valium] 2 mg PO ASDIR 08/24/17 Lutein 6 mg PO DAILY 08/24/17 Magnesium 250 mg PO DAILY 08/24/17 Rosuvastatin Calcium [Crestor] 5 mg PO HS 08/24/17 Levothyroxine [Synthroid -] 50 mcg PO ASDIR 08/25/17 Acetaminophen [Tylenol -] 500 mg PO ONCE 01/03/19 Aspirin/Acetaminophen/Caffeine [Excedrin Extra Strength Caplet] 1 each PO ONCE 01/03/19 Desloratadine 5 mg PO DAILY 01/03/19 Diphenhydramine HCl [Benadryl -] 25 mg PO ONCE 01/03/19 Fluticasone Prop 0.05% Nasal [Flonase -] 1 - 2 spray NS DAILY 01/03/19 Guaifenesin/Dextromethorphan [Delsym Cough+Chest Cngst Dm Lq] 180 ml PO PRN PRN 01/03/19 Hydrocortisone [Cortef -] 2.5 mg PO DAILY@1400 01/03/19 Hydrocortisone [Cortef -] 5 mg PO DAILY 01/03/19 Family Disease History - Family Disease History Family History: Denies Review of Systems - Review of Systems Constitutional: reports: Malaise. denies: Chills Eyes: reports: No Symptoms HENT: reports: No Symptoms Neck: reports: No Symptoms Cardiovascular: reports: No Symptoms Respiratory: reports: No Symptoms Gastrointestinal: reports: Nausea Genitourinary: reports: No Symptoms Musculoskeletal: reports: No Symptoms Integumentary: reports: No Symptoms Neurological: reports: No Symptoms Endocrine: reports: No Symptoms Hematology/Lymphatic: reports: No Symptoms Psychiatric: reports: No Symptoms Physical Exam Vital Signs: Vital Signs Temperature 98.4 F 01/04/19 10:00 Pulse Rate 76 01/04/19 10:00 Respiratory Rate 18 01/04/19 10:00 Blood Pressure 104/55 L 01/04/19 10:00 O2 Sat by Pulse Oximetry (%) 96 01/04/19 06:00 Constitutional: Yes: Calm Eyes: Yes: Conjunctiva Clear HENT: Yes: Atraumatic Neck: Yes: Supple Cardiovascular: Yes: S1, S2 Respiratory: Yes: CTA Bilaterally Gastrointestinal: Yes: Soft Renal/: Yes: WNL Musculoskeletal: Yes: WNL Extremities: Yes: WNL Edema: No Neurological: Yes: Oriented Psychiatric: Yes: Oriented Labs: CBC, BMP 01/04/19 07:05 01/04/19 07:05 Laboratory Tests 08/23/17 08/24/17 08/25/17 18:56 07:20 05:25 Sodium 126 L 132 L 125 L 08/25/17 08/25/17 08/26/17 18:00 23:30 05:55 Sodium 121 L* 123 L* 126 L 08/28/17 08/29/17 01/03/19 07:27 06:15 12:04 Sodium 143 145 122 L 01/03/19 01/04/19 01/04/19 16:35 00:00 07:05 Sodium 121 L 126 L 128 L 01/04/19 07:05 Sodium 128 L Problem List - Problems (1) Hyponatremia Code(s): E87.1 - HYPO-OSMOLALITY AND HYPONATREMIA Assessment/Plan Current Medications Generic Name Dose Route Start Last Admin Trade Name Freq PRN Reason Stop Dose Admin Aspirin 81 mg 01/04/19 10:00 01/04/19 09:29 Ecotrin - PO 81 mg DAILY DUSTIN Administration Cholecalciferol 400 unit 01/04/19 10:00 Vitamin D3 - PO DAILY DUSTIN Fludrocortisone Acetate 0.1 mg 01/04/19 10:00 Florinef - PO DAILY DUSTIN Fluticasone Propionate 1 spray 01/04/19 10:00 Flonase - NS DAILY DUSTIN Hydrocortisone Sodium Succinate 100 mg 01/04/19 00:00 01/04/19 09:30 Solu-Cortef - IVPB 100 mg Q8H-IV DUSTIN Administration Sodium Chloride 1,000 mls @ 75 mls/hr 01/03/19 18:30 01/03/19 22:30 Normal Saline - IV 75 mls/hr ASDIR DUSTIN Administration Levothyroxine Sodium 50 mcg 01/04/19 07:00 01/04/19 06:05 Synthroid - PO 50 mcg DAILY@0700 DUSTIN Administration Loratadine 10 mg 01/04/19 10:00 01/04/19 09:29 Claritin - PO 10 mg DAILY DUSTIN Administration Ondansetron HCl 4 mg 01/03/19 18:25 Zofran Injection IVPUSH Q6H PRN NAUSEA Pantoprazole Sodium 40 mg 01/04/19 10:00 01/04/19 09:29 Protonix - PO 40 mg DAILY DUSTIN Administration Rosuvastatin Calcium 5 mg 01/03/19 22:00 01/03/19 23:39 Crestor - PO 5 mg HS DUSTIN Administration Laboratory Tests 01/03/19 01/04/19 13:03 00:09 Serum Osmolality 253 L Urine Osmolality 393 Impression 1. hyponatremia 2. pituitary adenoma 3. hypothyroidism 4. HLD 5. seasonal allergies Plan - check urine sodium - urine osm higher than plasma - check cortisol and tsh - pt does follow with endocrine - cont saline and monitor response - repeat labs in am - will need outpt follow up Dr Cano
--- NOTE | 2019-01-04 11:32 | PN ---
Physical Exam: SUBJECTIVE: Patient seen and examined at bedside. Feeling much better. Mental confusion has completely resolved. OBJECTIVE: Vital Signs Period Temp Pulse Resp BP Sys/Ulrich Pulse Ox Last 24 Hr 98.1 F-98.5 F 59-89 14-20 103-148/55-87 96-100 GENERAL: The patient is awake, alert, and fully oriented, in no acute distress. LUNGS: Breath sounds equal, clear to auscultation bilaterally, no wheezes, no crackles, no accessory muscle use. HEART: Regular rate and rhythm, S1, S2 ABDOMEN: Soft, nontender, nondistended EXTREMITIES: 2+ pulses, warm, well-perfused, no edema. NEUROLOGICAL: Cranial nerves II through XII grossly intact. Normal speech Laboratory Results - last 24 hr 01/03/19 01/03/19 01/03/19 12:04 12:04 12:04 WBC 10.5 RBC 4.25 Hgb 12.7 Hct 38.4 MCV 90.3 MCH 29.9 MCHC 33.1 RDW 12.4 Plt Count 193 MPV 10.8 Absolute Neuts (auto) 5.8 Neutrophils % 54.4 Lymphocytes % 31.6 Monocytes % 10.8 H Eosinophils % 2.0 Basophils % 1.2 Sodium 122 L Potassium 3.8 Chloride 91 L Carbon Dioxide 25 Anion Gap 6 L BUN 9.0 Creatinine 0.7 Est GFR (CKD-EPI)AfAm 97.54 Est GFR (CKD-EPI)NonAf 84.16 Random Glucose 90 Serum Osmolality Calcium 8.8 Total Bilirubin 1.1 H AST 29 ALT 15 Alkaline Phosphatase 66 Creatine Kinase 584 H Creatine Kinase Index 1.4 CK-MB (CK-2) 8.5 H Troponin I < 0.03 Total Protein 6.5 Albumin 3.7 Lipase 146 TSH Urine Osmolality Ur Free Cortisol 24 Hr Urine Free Cortisol 01/03/19 01/03/19 01/03/19 13:03 16:35 16:35 WBC RBC Hgb Hct MCV MCH MCHC RDW Plt Count MPV Absolute Neuts (auto) Neutrophils % Lymphocytes % Monocytes % Eosinophils % Basophils % Sodium Potassium Chloride Carbon Dioxide Anion Gap BUN Creatinine Est GFR (CKD-EPI)AfAm Est GFR (CKD-EPI)NonAf Random Glucose Serum Osmolality 253 L Calcium Total Bilirubin AST ALT Alkaline Phosphatase Creatine Kinase 524 H Creatine Kinase Index 1.4 CK-MB (CK-2) 7.4 H Troponin I < 0.03 Total Protein Albumin Lipase TSH 0.06 L Urine Osmolality Ur Free Cortisol 24 Hr Urine Free Cortisol 01/03/19 01/04/19 01/04/19 16:35 00:00 00:09 WBC RBC Hgb Hct MCV MCH MCHC RDW Plt Count MPV Absolute Neuts (auto) Neutrophils % Lymphocytes % Monocytes % Eosinophils % Basophils % Sodium 121 L 126 L Potassium 3.8 3.7 Chloride 95 L 94 L Carbon Dioxide 23 24 Anion Gap 3 L 8 BUN 8.0 5.7 L Creatinine 0.7 0.6 Est GFR (CKD-EPI)AfAm 97.54 102.62 Est GFR (CKD-EPI)NonAf 84.16 88.54 Random Glucose 83 70 L Serum Osmolality Calcium 7.6 L 7.4 L Total Bilirubin AST ALT Alkaline Phosphatase Creatine Kinase Creatine Kinase Index CK-MB (CK-2) Troponin I Total Protein Albumin Lipase TSH Urine Osmolality 393 Ur Free Cortisol 24 Hr Urine Free Cortisol 01/04/19 01/04/19 01/04/19 06:15 07:05 07:05 WBC 10.0 RBC 4.24 Hgb 13.0 Hct 38.4 MCV 90.5 MCH 30.6 MCHC 33.8 RDW 12.1 Plt Count 198 MPV 11.7 H Absolute Neuts (auto) Neutrophils % Lymphocytes % Monocytes % Eosinophils % Basophils % Sodium 128 L Potassium 3.8 Chloride 96 L Carbon Dioxide 24 Anion Gap 8 BUN 7.0 Creatinine 0.7 Est GFR (CKD-EPI)AfAm 97.54 Est GFR (CKD-EPI)NonAf 84.16 Random Glucose 127 H Serum Osmolality Calcium 8.7 Total Bilirubin AST ALT Alkaline Phosphatase Creatine Kinase Creatine Kinase Index CK-MB (CK-2) Troponin I Total Protein Albumin Lipase TSH Urine Osmolality Ur Free Cortisol 24 Hr Cancelled Urine Free Cortisol Cancelled 01/04/19 07:05 WBC RBC Hgb Hct MCV MCH MCHC RDW Plt Count MPV Absolute Neuts (auto) Neutrophils % Lymphocytes % Monocytes % Eosinophils % Basophils % Sodium 128 L Potassium 3.7 Chloride 95 L Carbon Dioxide 24 Anion Gap 9 BUN Creatinine Est GFR (CKD-EPI)AfAm Est GFR (CKD-EPI)NonAf Random Glucose Serum Osmolality Calcium Total Bilirubin AST ALT Alkaline Phosphatase Creatine Kinase Creatine Kinase Index CK-MB (CK-2) Troponin I Total Protein Albumin Lipase TSH Urine Osmolality Ur Free Cortisol 24 Hr Urine Free Cortisol PCP: Dr. Mali Parks, [facility] [phone] Endo: Dr. Rebeca Aleman, [facility] [phone] Neurosurgeon: Dr. 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 Admitted for severe hyponatremia. Severe hyponatremia Secondary hypothyroidism Metabolic encephalopathy --confusion, weakness, malaise has resolved as Na has improved, today 128 (<- -121) --may be secondary to SIADH as recent upper respiratory/seasonal allergy symptoms; last episode of severe hyponatremia was in 2018 when admitted to ICU for pneumonia --seen and evaluated by renal, continue IV fluids; check bmp q8h --may be secondary to hypothyroidism; spoke with primary unit aide Dr. Aleman, confirmed patient takes hydrocortisone 5mg in am and 2.5mg in pm, patient has been compliant --seen and evaluated by endocrine Dr. Angelo; three doses of stress steroids have been given --continue current dose of levothyroxine, free T4 pending Hyperlipidemia --continue Crestor Chest pain --resolved in ED after fluids started --troponins neg x 3 --ECG sinus rhythm @61bmp; no ischemic changes --ACS ruled out --no further workup indicated FEN Fluids: NS@75mL/hr Electrolytes: replete as indicated Nutrition: regular diet DVT prophylaxis: subq lovenox Dispo: continues to require inpatient care. Full code. Visit type - Emergency Visit Emergency Visit: Yes ED Registration Date: 01/03/19 Care time: The patient presented to the Emergency Department on the above date and was hospitalized for further evaluation of their emergent condition. - New Patient This patient is new to me today: Yes Date on this admission: 01/04/19 - Critical Care Critical Care patient: No
[2019-01-04] MEDS ORDERED: ACETAMINOPHEN 325 MG TABLET (FP) PO PRN (11:35)
[2019-01-04] MEDS ORDERED: PT OWN MED DRAWER 7, Y5N ONE (12:42)
[2019-01-04 15:53] LABS: CREATININE 0.8 mg/dl (0.55-1.3); POTASSIUM 4.2 mmol/L (3.5-5.1)
[2019-01-04] MEDS: ENOXAPARIN NA (PORCINE) 40 MG/0.4 ML DISP.SYRIN SQ SCH (16:21)
[2019-01-04] MEDS ORDERED: DEXTROSE 5%-WATER - 1,000 ML IV SCH ×3 (16:45→23:43)
[2019-01-04] MEDS: FLUTICASONE PROP 0.05% 16 GM NASAL SPRAY NS SCH (17:30)
--- NOTE | 2019-01-04 18:23 | CONSULT ---
Consult Consult Specialty:: ENDOCRINE Referred by:: CHINO HERNANDEZ MD Reason for Consultation:: HYPOPITUITARY,HYPOADRENAL - History of Present Illness Chief Complaint: WEAK AND NAUSEAS History of Present Illness: 77 yo f w/ PMH Pituitary adenoma (s/p resection) presenting with Nausea and epigastric pain , generalized weakness. She had felt this way for at least 2 days. Tried to vomit but couldn't. She follows with outside career resource technician regularly and says she takes her hydrocortisone regularly. she had been on cortisone dose for last several years and felt well till recently.denies headache,vision loss,diarhea or fever. 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 (pituitary adenoma) Cardio/Vascular: Yes: Hyperlipdemia Renal/: Yes: Other (hyponatremia) Endocrine: Yes: Hypothyroidism, Other (Adrenal Insufficiency, Pituitary Adenoma s/p partial resection) - Alcohol/Substance Use Hx Alcohol Use: No History of Substance Use: reports: None - Smoking History Smoking history: Never smoked Have you smoked in the past 12 months: No - Social History Usual Living Arrangement: With Spouse Home Medications - Allergies Allergies/Adverse Reactions: Allergies Allergy/AdvReac Type Severity Reaction Status Date / Time No Known Allergies Allergy Verified 01/03/19 18:12 - Home Medications Home Medications: Ambulatory Orders Aspirin [Adult Aspirin Regimen] 81 mg PO DAILY 08/24/17 Cholecalciferol (Vitamin D3) [Vitamin D-400] 400 unit PO DAILY 08/24/17 Diazepam [Valium] 2 mg PO ASDIR 08/24/17 Lutein 6 mg PO DAILY 08/24/17 Magnesium 250 mg PO DAILY 08/24/17 Rosuvastatin Calcium [Crestor] 5 mg PO HS 08/24/17 Levothyroxine [Synthroid -] 50 mcg PO ASDIR 08/25/17 Acetaminophen [Tylenol -] 500 mg PO ONCE 01/03/19 Aspirin/Acetaminophen/Caffeine [Excedrin Extra Strength Caplet] 1 each PO ONCE 01/03/19 Desloratadine 5 mg PO DAILY 01/03/19 Diphenhydramine HCl [Benadryl -] 25 mg PO ONCE 01/03/19 Fluticasone Prop 0.05% Nasal [Flonase -] 1 - 2 spray NS DAILY 01/03/19 Guaifenesin/Dextromethorphan [Delsym Cough+Chest Cngst Dm Lq] 180 ml PO PRN PRN 01/03/19 Hydrocortisone [Cortef -] 2.5 mg PO DAILY@1400 01/03/19 Hydrocortisone [Cortef -] 5 mg PO DAILY 01/03/19 Review of Systems - Review of Systems Constitutional: reports: Lethargy, Weakness Eyes: reports: No Symptoms HENT: reports: No Symptoms Neck: reports: No Symptoms Cardiovascular: reports: No Symptoms Respiratory: reports: No Symptoms Gastrointestinal: reports: No Symptoms Genitourinary: reports: No Symptoms Breasts: reports: No Symptoms Reported Musculoskeletal: reports: No Symptoms Integumentary: reports: No Symptoms Neurological: reports: No Symptoms Endocrine: reports: No Symptoms Physical Exam Vital Signs: Vital Signs Temperature 97.5 F L 01/04/19 15:13 Pulse Rate 83 01/04/19 15:13 Respiratory Rate 20 01/04/19 15:13 Blood Pressure 115/65 01/04/19 15:13 O2 Sat by Pulse Oximetry (%) 100 01/04/19 15:13 Eyes: Yes: EOM Intact HENT: Yes: Normocephalic Neck: Yes: Trachea Midline Cardiovascular: Yes: Regular Rate and Rhythm Respiratory: Yes: CTA Bilaterally Gastrointestinal: Yes: Normal Bowel Sounds ...Rectal Exam: Yes: Deferred Renal/: Yes: WNL Breast(s): Yes: WNL Musculoskeletal: Yes: WNL Extremities: Yes: WNL Edema: No Peripheral Pulses WNL: Yes Integumentary: Yes: WNL Neurological: Yes: Alert, Oriented Labs: CBC, BMP 01/04/19 07:05 01/04/19 15:29 Problem List - Problems (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 - UNSPECIFIED ADRENOCORTICAL INSUFFICIENCY (2) Hypoadrenocorticism Code(s): E27.40 - UNSPECIFIED ADRENOCORTICAL INSUFFICIENCY (3) Hyponatremia Code(s): E87.1 - HYPO-OSMOLALITY AND HYPONATREMIA Assessment/Plan Current Active Problems panhypopit hypoadrenal hypopituitary hypothyroid Hyponatremia (Acute) Abnormal Lab Results 01/03/19 01/04/19 01/04/19 13:03 00:00 07:05 MPV 11.7 H Sodium 126 L Chloride 94 L Anion Gap BUN 5.7 L Random Glucose 70 L Serum Osmolality 253 L Calcium 7.4 L TSH 0.06 L Ur Random Sodium Ur Random Potassium Ur Random Chloride 01/04/19 01/04/19 01/04/19 07:05 07:05 12:40 MPV Sodium 128 L 128 L Chloride 96 L 95 L Anion Gap BUN Random Glucose 127 H Serum Osmolality Calcium TSH Ur Random Sodium 8 L Ur Random Potassium 13.3 L Ur Random Chloride 12 L 01/04/19 15:29 MPV Sodium 134 L Chloride Anion Gap 7 L BUN Random Glucose 129 H Serum Osmolality Calcium TSH Ur Random Sodium Ur Random Potassium Ur Random Chloride plan: check free t4 ck acth cortisol will need stress dose iv cortef 100mg tid then cortison 25mg bid taper as outpatient continue synthroid 50mcg prolactin level
[2019-01-04] MEDS: ROSUVASTATIN CA 5 MG TABLET (FP) PO SCH (21:11)
[2019-01-04] MEDS ORDERED: CORTISONE ACETATE 25 MG TABLET PO SCH (22:00)
[2019-01-04] MEDS ORDERED: LORATADINE 10 MG TABLET PO ONE (23:15)
[2019-01-05] MEDS: HYDROCORTISONE SOD SUCCINATE 100 MG/2 ML VIAL IVPB SCH (02:02)
[2019-01-05] MEDS: LEVOTHYROXINE NA 50 MCG TABLET (FP) PO SCH (06:02)
[2019-01-05 08:09] LABS: ALBUMIN 3.4 g/dl (3.4-5.0); BILIRUBIN,TOTAL 0.5 mg/dl (0.2-1); CALCIUM 8.9 mg/dl (8.5-10); CREATININE 0.8 mg/dl (0.55-1.3); MAGNESIUM 2.1 mg/dL (1.8-2.4); POTASSIUM 4.1 mmol/L (3.5-5.1); TOT PROT 6.4 g/dl (6.4-8.2)
[2019-01-05] MEDS ORDERED: PT OWN MED DRAWER 7, Y5N ONE ×2 (09:10→10:12)
[2019-01-05 09:15] LABS: BASO % 0.9 % (0-2.0); HEMATOCRIT 35.9 % (32.4-45.2); LYMPH % 7.7 % (8-40); MCH 30.4 pg (25.7-33.7); MCHC 33.4 g/dl (32.0-36.0); MEAN PLT VOLUME 13.3 fl (7.5-11.1); MONO % 4.4 % (3.8-10.2); PLATELET COUNT 207 K/MM3 (134-434); RBC 3.95 M/mm3 (3.60-5.2); RDW 12.7 % (11.6-15.6)
[2019-01-05] MEDS: LORATADINE 10 MG TABLET PO SCH (09:23)
[2019-01-05] MEDS: ASPIRIN COATED 81 MG TABLET.EC PO SCH (09:23)
[2019-01-05] MEDS: ENOXAPARIN NA (PORCINE) 40 MG/0.4 ML DISP.SYRIN SQ SCH (09:23)
[2019-01-05] MEDS: FLUTICASONE PROP 0.05% 16 GM NASAL SPRAY NS SCH (09:27)
[2019-01-05] MEDS ORDERED: DEXTROSE 5%-WATER - 1,000 ML IV SCH (11:00)
--- NOTE | 2019-01-05 11:00 | PN ---
Progress Note, Physician History of Present Illness: Pt seen and examined at bedside. She is awake and alert. Saline was changed to d5w as she was overcorrecting. - Current Medication List Current Medications: Active Medications Acetaminophen (Tylenol -) 650 mg PO Q6H PRN PRN Reason: PAIN LEVEL 1-5 Last Admin: 01/04/19 11:15 Dose: 650 mg Aspirin (Ecotrin -) 81 mg PO DAILY [facility] Last Admin: 01/05/19 09:23 Dose: 81 mg Cortisone Acetate (Cortisone Acetate) 25 mg PO BID [facility] Enoxaparin Sodium (Lovenox -) 40 mg SQ DAILY [facility] Last Admin: 01/05/19 09:23 Dose: Not Given Fluticasone Propionate (Flonase -) 1 spray NS DAILY [facility] Last Admin: 01/05/19 09:27 Dose: 1 spray Dextrose (D5w -) 1,000 mls @ 50 mls/hr IV ASDIR [facility] Last Admin: 01/05/19 02:02 Dose: 50 mls/hr Levothyroxine Sodium (Synthroid -) 50 mcg PO DAILY@0700 [facility] Last Admin: 01/05/19 06:02 Dose: 50 mcg Loratadine (Claritin -) 10 mg PO DAILY [facility] Last Admin: 01/05/19 09:23 Dose: 10 mg Rosuvastatin Calcium (Crestor -) 5 mg PO HS [facility] Last Admin: 01/04/19 21:11 Dose: 5 mg - Objective Vital Signs: Vital Signs Temperature 98.4 F 01/05/19 06:00 Pulse Rate 76 01/05/19 06:00 Respiratory Rate 18 01/05/19 08:09 Blood Pressure 125/73 01/05/19 06:00 O2 Sat by Pulse Oximetry (%) 97 01/05/19 08:09 Constitutional: Yes: Calm Eyes: Yes: Conjunctiva Clear HENT: Yes: Atraumatic Neck: Yes: Supple Cardiovascular: Yes: S1, S2 Respiratory: Yes: CTA Bilaterally Gastrointestinal: Yes: Soft Genitourinary: Yes: WNL Musculoskeletal: Yes: WNL Edema: No Integumentary: Yes: WNL Neurological: Yes: Oriented Psychiatric: Yes: Oriented Labs: CBC, BMP 01/05/19 07:21 01/05/19 07:21 Problem List - Problems (1) Hyponatremia Code(s): E87.1 - HYPO-OSMOLALITY AND HYPONATREMIA Assessment/Plan Current Medications Generic Name Dose Route Start Last Admin Trade Name Frenataliia PRN Reason Stop Dose Admin Acetaminophen 650 mg 01/04/19 11:35 01/04/19 11:15 Tylenol - PO 650 mg Q6H PRN Administration PAIN LEVEL 1-5 Aspirin 81 mg 01/04/19 10:00 01/05/19 09:23 Ecotrin - PO 81 mg DAILY DUSTIN Administration Cortisone Acetate 25 mg 01/05/19 22:00 Cortisone Acetate PO BID DUSTIN Enoxaparin Sodium 40 mg 01/04/19 15:45 01/05/19 09:23 Lovenox - SQ Not Given DAILY DUSTIN Fluticasone Propionate 1 spray 01/04/19 10:00 01/05/19 09:27 Flonase - NS 1 spray DAILY DUSTIN Administration Dextrose 1,000 mls @ 50 mls/hr 01/04/19 23:43 01/05/19 02:02 D5w - IV 50 mls/hr ASDIR DUSTIN Administration Levothyroxine Sodium 50 mcg 01/04/19 07:00 01/05/19 06:02 Synthroid - PO 50 mcg DAILY@0700 DUSTIN Administration Loratadine 10 mg 01/04/19 10:00 01/05/19 09:23 Claritin - PO 10 mg DAILY DUSTIN Administration Rosuvastatin Calcium 5 mg 01/03/19 22:00 01/04/19 21:11 Crestor - PO 5 mg HS DUSTIN Administration Impression 1. hyponatremia 2. pituitary adenoma 3. hypothyroidism 4. HLD 5. seasonal allergies Plan - cont d5w to decrease rate or sodium rising - can give free water as well - monitor sodium level - sodium has been irradic - low urine sodium is not consistent with siadh - will need close follow up - spoke to pt at length Dr Cano
--- NOTE | 2019-01-05 11:23 | DS ---
Physical Exam: SUBJECTIVE: Patient seen and examined OBJECTIVE: Vital Signs Period Temp Pulse Resp BP Sys/Ulrich Pulse Ox Last 24 Hr 97.5 F-98.7 F 72-83 18-20 115-129/65-73 96-100 PHYSICAL EXAM GENERAL: The patient is awake, alert, and fully oriented, in no acute distress. LUNGS: Breath sounds equal, clear to auscultation bilaterally, no wheezes, no crackles, no accessory muscle use. HEART: Regular rate and rhythm, S1, S2 ABDOMEN: Soft, nontender, nondistended EXTREMITIES: 2+ pulses, warm, well-perfused, no edema. NEUROLOGICAL: Cranial nerves II through XII grossly intact. Normal speech LABS Laboratory Results - last 24 hr 01/04/19 01/04/19 01/04/19 12:40 12:43 15:29 WBC RBC Hgb Hct MCV MCH MCHC RDW Plt Count MPV Absolute Neuts (auto) Neutrophils % Lymphocytes % Monocytes % Eosinophils % Basophils % Sodium 134 L Potassium 4.2 Chloride 104 Carbon Dioxide 23 Anion Gap 7 L BUN 8.0 Creatinine 0.8 Est GFR (CKD-EPI)AfAm 83.00 Est GFR (CKD-EPI)NonAf 71.61 Random Glucose 129 H Calcium 9.0 Magnesium Total Bilirubin AST ALT Alkaline Phosphatase Troponin I < 0.03 Total Protein Albumin Free T4 Ur Random Sodium 8 L Ur Random Potassium 13.3 L Ur Random Chloride 12 L 01/04/19 01/05/19 01/05/19 15:29 07:21 07:21 WBC 14.0 H RBC 3.95 Hgb 12.0 Hct 35.9 MCV 91.0 MCH 30.4 MCHC 33.4 RDW 12.7 Plt Count 207 MPV 13.3 H Absolute Neuts (auto) 12.2 Neutrophils % 87.0 H Lymphocytes % 7.7 L Monocytes % 4.4 Eosinophils % 0.0 Basophils % 0.9 Sodium 138 Potassium 4.1 Chloride 108 H Carbon Dioxide 22 Anion Gap 8 BUN 13.0 Creatinine 0.8 Est GFR (CKD-EPI)AfAm 83.00 Est GFR (CKD-EPI)NonAf 71.61 Random Glucose 127 H Calcium 8.9 Magnesium 2.1 Total Bilirubin 0.5 AST 29 ALT 15 Alkaline Phosphatase 62 Troponin I Total Protein 6.4 Albumin 3.4 Free T4 1.24 Ur Random Sodium Ur Random Potassium Ur Random Chloride Date of Admission:01/03/19 Date of Discharge: 01/05/19 Pre hospital course 78 year-old female with a PMH significant for HLD and adrenal insufficiency and 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 Admitted for severe hyponatremia. 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 Aleman Hyperlipidemia --continued Crestor Chest pain --resolved in ED after fluids started --troponins neg x 3 --ECG sinus rhythm @61bmp; no ischemic changes --ACS ruled out Minutes to complete discharge: 35 Discharge Summary Reason For Visit: HYPONATREMIA Current Active Problems Hypoadrenalism (Acute) Hypoadrenocorticism (Acute) Hyponatremia (Acute) Condition: Improved - Instructions Diet, Activity, Other Instructions: A prescription has been sent to your pharmacy for a higher dose of cortisone than you usually take. You will now take cortisone 15mg in the morning and 10mg in the evening. Take this higher dose until you follow up with your regular shellfish grower Dr. Aleman next week. Start your first dose of 10mg this evening. Return to the emergency department for any new or worsening symptoms. Referrals: Rebeca Aleman MD [Non Staff, Medical] - Disposition: HOME - Home Medications Comprehensive Discharge Medication List: Ambulatory Orders Aspirin [Adult Aspirin Regimen] 81 mg PO DAILY 08/24/17 Cholecalciferol (Vitamin D3) [Vitamin D-400] 400 unit PO DAILY 08/24/17 Diazepam [Valium] 2 mg PO ASDIR 08/24/17 Lutein 6 mg PO DAILY 08/24/17 Magnesium 250 mg PO DAILY 08/24/17 Rosuvastatin Calcium [Crestor] 5 mg PO HS 08/24/17 Levothyroxine [Synthroid -] 50 mcg PO ASDIR 08/25/17 Acetaminophen [Tylenol -] 500 mg PO ONCE 01/03/19 Aspirin/Acetaminophen/Caffeine [Excedrin Extra Strength Caplet] 1 each PO ONCE 01/03/19 Desloratadine 5 mg PO DAILY 01/03/19 Diphenhydramine HCl [Benadryl -] 25 mg PO ONCE 01/03/19 Fluticasone Prop 0.05% Nasal [Flonase -] 1 - 2 spray NS DAILY 01/03/19 Guaifenesin/Dextromethorphan [Delsym Cough+Chest Cngst Dm Lq] 180 ml PO PRN PRN 01/03/19 Cortisone Acetate [Cortisone -] 25 mg PO BID #60 tablet 01/05/19 This patient is new to me today: No Emergency Visit: Yes ED Registration Date: 01/03/19 Care time: The patient presented to the Emergency Department on the above date and was hospitalized for further evaluation of their emergent condition. Critical Care patient: No - Discharge Referral Referred to [facility] Med P.C.: No
[2019-01-05 12:49] VITALS: BP 118/66; PULSE 70; TEMP 97.6
[2019-01-05] MEDS ORDERED: HYDROCORTISONE 10 MG TABLET PO ONE (12:49)
[2019-01-05] MEDS ORDERED: HYDROCORTISONE 5 MG TABLET PO ONE (13:00)
[2019-01-05 14:28] LABS: ADD RBC MORPHOLOGY YES
[2019-01-05 16:33] LABS: PLATELET ESTIMATE ADEQUATE
[2019-01-05] MEDS ORDERED: CORTISONE ACETATE 25 MG TABLET PO SCH (22:00)
[2019-01-09 10:22] LABS: RENIN ACTIVITY(PRA) < 0.167 (0.15-23.86)
== END 2019-01-05 13:30 | disposition home or self-care (01) | DRG 640 ==
LOC: EDSEX 11:58 → FER 11:58 → MERGE 11:58 → FM/S 19:14
PROVIDERS: ADMIT Internal Medicine; ATTEND Nurse Practitioner Acute Care
DX: E87.1 Hypo-osmolality and hyponatremia (principal); G93.41 Metabolic encephalopathy; E27.40 Unspecified adrenocortical insufficiency; E03.9 Hypothyroidism, unspecified; E78.5 Hyperlipidemia, unspecified; D35.2 Benign neoplasm of pituitary gland; R07.89 Other chest pain
CPT/HCPCS: 36415; 80048; 80051; 80053; 82024; 82088; 82436; 82533; 82550; 82553; 83690; 83735; 83930; 83935; 84133; 84146; 84244; 84300; 84439; 84443; 84484; 85025; 85027; 93005; 99283-25; J0131; J7030